=== PATIENT | male | born 1985 | race Caucasian/White ===

== ENCOUNTER 2024-01-12 11:32 | Emergency (ER) | payer MEDICAID, SELFPAY ==
[2024-01-12 11:41] VITALS: BP 134/79; PULSE 85; RESP 16; TEMP 37.2; O2SAT 99
== END 2024-01-12 12:26 ==
DX: Z53.21 Procedure and treatment not carried out due to patient leaving prior to being seen by health care provider (principal)

== ENCOUNTER 2024-01-13 09:45 | Emergency (ER) | payer MEDICAID, SELFPAY ==
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
[2024-01-13 09:50] VITALS: BP 173/113; PULSE 88; RESP 20; TEMP 36.8; O2SAT 100
[2024-01-13 09:57] VITALS: BP 182/97; PULSE 81; RESP 17; O2SAT 100
--- NOTE | 2024-01-13 10:15 | DI.CT_ITS ---
Exam(s) CT HEAD WO EXAM: CT HEAD WO CLINICAL HISTORY: fall/headache/hx of tbi. TECHNIQUE: Imaging Protocol: Axial computed tomography images with coronal and sagittal reformatted images were created and reviewed COMPARISON: No exams were available for comparison FINDINGS: Ventricles and Extra axial spaces: Normal in size and morphology for the patient's age. Hemorrhage: None. Cerebral parenchyma: No evidence of acute infarct or mass. Midline shift: None. Brainstem/Cerebellum: Normal. Calvarium: Normal. Visualized Paranasal sinuses:Clear. Mastoids: Clear. Soft Tissues: Unremarkable. ORBITS: Unremarkable. PITUITARY: Not enlarged. IMPRESSION: No acute intracranial process. RADIATION DOSE DELIVERED: Total DLP DATA REPOSITORY: All CT scans at this facility are submitted to the National Radiology Data Registry (NRDR) Dose Index Registry (DIR) with the [employer] ([employer]). RADIATION OPTIMIZATION: All CT scans at this facility use at least one of these dose optimization te chniques: automated exposure control; mA and/or kV adjustment per patient size (includes targeted exa ms where dose is matched to clinical indication); or iterative reconstruction.
[2024-01-13 10:30] LABS: Abs Immature Grans 0.01 10^3/uL (0.0-0.06); Absolute Basophil Count 0.04 10^3/uL (0.0-0.2); Absolute Eosinophil Count 0.13 10^3/uL (0.0-0.7); Absolute Lymphocyte Count 0.49 10^3/uL (1.2-3.4); Absolute Monocyte Count 0.37 10^3/uL (0.1-0.8); Absolute Neutrophil Count 1.49 10^3/uL (1.2-6.7); Basophils % 1.6; Eosinophils % 5.1; HCT 32.6 % (40.0-50.0); HGB 10.5 g/dL (13.5-17.5); Immature Grans % 0.4; Lymphocytes % 19.4; MCH 26.4 pg (27.0-33.0); MCHC 32.2 % (32.0-36.0); MCV 82 fL (80-95); MPV 9.9 fL (8.0-11.0); Monocytes % 14.6; Neutrophils % 58.9; RBC 3.97 10^6/uL (4.36-5.78); RDW 19.3 % (11.8-14.1); RDW-SD 57.5 fL; WBC 2.53 10^3/uL (4.4-10.8)
--- NOTE | 2024-01-13 10:31 | DI.CT_ITS ---
Exam(s) CT CHEST/ABD/PEL W CT THORACIC LUMBAR SPINE REC EXAM: CT CHEST/ABD/PEL W CLINICAL HISTORY: fall. SOB, R flank pain. TECHNIQUE: Imaging Protocol: Axial computed tomography images with coronal and sagittal reformatted images were created and reviewed CONTRAST MATERIAL: Intravenous: Omnipaque 350 Contrast volume:100 ml Oral: no COMPARISON: No exams were available for comparison FINDINGS: CHEST: Mediastinum: Esophageal varices. Tracheobronchial tree: Patent where visualized. Pulmonary parenchyma: No consolidation or dominant measurable mass. Pleura: No effusion or pneumothorax. Lymph nodes: Within normal limits. Aorta: Thoracic portion non-dilated. Heart: Normal size. No pericardial effusion. Bones: Old mild compression fracture of the anterior superior endplate of T12. Subacute versus old f racture of the posterolateral left 11th rib. No lytic or blastic lesions.No acute compression fractu res. Soft tissues: Bilateral gynecomastia. ABDOMEN and PELVIS: Liver: Enlarged, cirrhotic appearing liver. No measurable mass. Gallbladder and biliary tract: No evidence of stones or wall thickening. No biliary dilatation. Pancreas: Normal density, no abnormal calcifications or inflammatory process. Spleen: Enlarged. Splenic vein is dilated. Varices are noted in the left upper quadrant. Kidneys: Normal size, contour and axis. No radiodense stones. No obstructive uropathy. No suspicious masses seen. Adrenal glands: No masses seen. Aorta: Abdominal portion non-dilated. Lymph nodes: Within normal limits. Soft tissues: Unremarkable. Bladder: Unremarkable. Bowel: No obstruction or bowel wall thickening. Peritoneal cavity: No ascites. No focal collection. No mesenteric inflammatory response. Bones: Unremarkable for age. No lumbar spine or pelvic fracture. Reproductive organs: Within normal limits. IMPRESSION: No acute abnormality in the chest, abdomen or pelvis.. Cirrhotic liver. Prominent esophageal and left upper quadrant varices. RADIATION DOSE DELIVERED: Total DLP DATA REPOSITORY: All CT scans at this facility are submitted to the National Radiology Data Registry (NRDR) Dose Index Registry (DIR) with the [employer] (A[employer]). RADIATION OPTIMIZATION: All CT scans at this facility use at least one of these dose optimization te chniques: automated exposure control; mA and/or kV adjustment per patient size (includes targeted exa ms where dose is matched to clinical indication); or iterative reconstruction.
[2024-01-13 10:40] LABS: Diff Comment Diff Reviewed; Platelet Count 96 10^3/uL (130-400); RBC Morphology Normal
[2024-01-13 10:58] LABS: ALT 27 U/L (16-63); AST 96 U/L (15-37); Albumin 2.8 g/dL (3.4-5.0); Alkaline Phosphatase 240 U/L (46-116); Anion Gap 6.7 mmol/L (3-11); BUN 12 mg/dL (7-18); Bilirubin, Total 1.6 mg/dL (0.2-1.0); CO2 27.3 mmol/L (21.0-32.0); CREATININE 0.6 mg/dL (0.70-1.30); Calcium 8.7 mg/dL (8.5-10.1); Chloride 102 mmol/L (98-107); Glucose 118 mg/dL (74-106); Lipase 46 U/L (16-77); Potassium 3.8 mmol/L (3.5-5.1); Sodium 136 mmol/L (136-145); Total Protein 8.9 g/dL (6.4-8.2)
[2024-01-13] MEDS: Normal Saline - Diluent 50 ML VIAL IJ (11:03)
[2024-01-13] MEDS: Omnipaque 350 MG/ML 500 ML BTL-Imaging package 100 ML IJ (11:04)
[2024-01-13 12:24] LABS: Bilirubin Negative (Negative); Blood Small (Negative); Clarity Clear (Clear); Glucose Negative (Negative); Ketones Negative (Negative); Leukocyte Esterase Negative (Negative); Nitrite Negative (Negative); Specific Gravity 1.015 (1.005-1.025); pH 8.5 (5-8)
[2024-01-13 12:32] LABS: Bacteria Negative HPF (Negative); C & S Indicated? No; Casts 0-2 Hyaline LPF (Negative); Crystals Negative HPF (Negative); Epithelial Cells Rare HPF (Negative); Mucus Negative (Negative); WBC Negative HPF (0-5)
[2024-01-13 13:03] VITALS: BP 106/70; PULSE 96; RESP 16; TEMP 36.8; O2SAT 94
== END 2024-01-13 13:12 | disposition home or self-care (01) ==
PROVIDERS: Emergency Provider Physician Assistant
DX: S09.90XA Unspecified injury of head, initial encounter (principal); M54.50 Low back pain, unspecified; G40.909 Epilepsy, unspecified, not intractable, without status epilepticus; K74.60 Unspecified cirrhosis of liver; W07.XXXA Fall from chair, initial encounter; Y93.E1 Activity, personal bathing and showering; Y92.012 Bathroom of single-family (private) house as the place of occurrence of the external cause
CPT/HCPCS: 36415; 74177; 80053; 83690; 99285; 70450; 71260; 81003; 81015; 85025; 99284

== ENCOUNTER 2024-02-05 10:43 | Emergency (ER) | payer MEDICAID, SELFPAY ==
[2024-02-05] VITALS (41 sets, daily range): BP systolic 100–173; BP diastolic 50–104; PULSE 54–97; RESP 9–17; TEMP 36.4; O2SAT 100
--- NOTE | 2024-02-05 10:48 | ED.GENADUL_ITS ---
Discharge Plan Disposition Patient Disposition: Home Condition: Stable Discharge Details Clinical Impression: Acute alcohol intoxication, Cirrhosis, alcoholic Primary Care Provider: Unknown,Unknown ED Provider: Zach Matthews Home Meds and New Rx's Prescriptions: New chlordiazepoxide HCl 25 mg capsule See Rx Instructions .ROUTE .COMPLEX PRN (Reason: ETOH withdrawal) Qty: 20 0RF Rx Instructions: Day 1: Take 50mg by mouth every 4 to 6 hours; Day 2: Take 50mg every 8 to 12 hours; Day 3: Take 50mg every 12 to 24 hours; Day 4: Take 25 mg every 12 to 24 hours Continued levetiracetam [Keppra] 1,000 mg tablet 1,000 mg PO BID thiamine HCl (vitamin B1) 100 mg tablet 100 mg PO DAILY nadolol [Corgard] 20 mg tablet 20 mg PO DAILY Discharge Instructions Instructions: Cirrhosis (ED), Alcohol Intoxication (ED) Additional Instructions: You were seen in the emergency department after being found down and unresponsive likely due to acute alcohol ingestion. Your blood alcohol was 0.52 if you are equating to a level on breathalyzer. This level was fatal in most people. Your CT scan due to your right lower quadrant tenderness shows that you have cirrhosis of the liver. Your liver enzymes are elevated indicating that you are in the end stages of alcoholism. Please continue with your plan for [facility] rehab. I have sent you a with a paper copy of a prescription for Librium a medicine to help with alcohol withdrawal side effects. Please take this to the pharmacy of your choice. Please return for any severe signs of withdrawal or seizure, I have sent you home with a short supply of Ativan tablets to help prevent any seizure symptoms. If you do drink on Librium they will repress your respiratory drive and you can have fatal complications from this. HPI General Date/Time Provider Initiated Documentation: 02/05/24 10:47 . HPI Narrative: 38 year-old male presents to ED today by EMS with a chief complaint of found down unresponsive near an off-ramp from , history of ETOH abuse and seizure history, lives with a pharmacology teacher with onset this morning. Patient is s ignificantly intoxicated on arrival, stating he has taken his Keppra this morning- I suspect he may be referring to yesterday. Quality described as no pain anywhere, states had one drink, no radiation to fever, active seizure, tremors, chest pain, cough, vomiting, abdominal pain. Severity is described as unable to quantify. Palliating factors include nothing specific. Provoking factors include nothing specific. Events leading up to the incident/Associated Symptoms: Patient states he has had severe ETOH withdrawal seizures in the past, does want to get sober, and will talk to wellness health coach. Patient not anticoagulated. Related Data Home Medications Medication Instructions Recorded Confirmed levetiracetam 1,000 mg tablet 1,000 mg PO BID 01/13/24 02/05/24 (Keppra) nadolol 20 mg tablet (Corgard) 20 mg PO DAILY 01/13/24 02/05/24 thiamine HCl (vitamin B1) 100 mg 100 mg PO DAILY 01/13/24 02/05/24 tablet chlordiazepoxide HCl 25 mg capsule See Rx Instructions .Route 02/05/24 .COMPLEX PRN ETOH withdrawal #20 caps Previous Rx's Medication Instructions Recorded chlordiazepoxide HCl 25 mg capsule See Rx Instructions .Route 02/05/24 .COMPLEX PRN ETOH withdrawal #20 caps Allergies Allergy/AdvReac Type Severity Reaction Status Date / Time No Known Allergies Allergy Unverified 02/05/24 10:47 General Stated Complaint: GenMedical ARETHA: 3 Review of Systems All systems reviewed & are unremarkable except as noted in HPI and below Exam Narrative Exam Narrative: GENERAL APPEARANCE: Well-nourished, non-toxic, awake and intoxicated, atraumatic, no acute distress. SKIN: Warm, pink, dry, intact, without rashes/lesions/ulcerations. HEAD: Normocephalic, atraumatic, normal hair distribution for gender/age. EYES: Pupils PERRLA, EOMs intact with horizontal bilateral nystagmus, normal conjunctiva, no exudates on lids/lashes. ENT: Nares patent, no circumoral cyanosis, no facial swelling NECK: Supple, trachea midline, painless cervical ROM. LUNGS/CHEST: Lungs CTA bilaterally- no rhonchi/rales/wheezes diffusely, non-labored respirations, normal A/P diameter, symmetrical expansion, no chest wall deformity HEART (CV/PV): Regular rate and rhythm without murmur, no peripheral edema, no JVD. ABDOMEN: Soft, non-distended, no guarding, RLQ tenderness, no RUQ tenderness or Martinez's sign, no Rovsing's. MSK: Normal ROM, no swelling/deformity to bilateral UEs or LEs, moving all extremities without weakness, no cyanosis, spine midline without tenderness, normal curvature. NEURO: Mental Status AAOx4 - alert to person, place, time, events No facial droop, no forehead involvement. Motor: No focal weakness - strength 5/5 in bilateral UEs and LEs, proximal and distal, symmetric. Sensory: sensation intact to light touch globally. Gait NT. PSYCH: euthymic, cooperative, pleasant, appropriate speech- not slurred Course Vital Signs Vital signs: Vital Signs Temperature 36.4 C L 02/05/24 10:43 Pulse 79 02/05/24 10:43 Respiratory Rate 15 02/05/24 10:43 Blood Pressure 173/95 H 02/05/24 10:43 Pulse Oximetry 100 02/05/24 10:43 Temperature 36.4 C L 02/05/24 10:43 Temperature Source Skin 02/05/24 10:43 Pulse 79 02/05/24 10:43 Respiratory Rate 15 02/05/24 10:43 Blood Pressure 173/95 H 02/05/24 10:43 Blood Pressure Position Sitting 02/05/24 10:43 Pulse Oximetry 100 02/05/24 10:43 Oxygen Delivery Method Room Air 02/05/24 10:43 Oxygen Flow Rate 0 02/05/24 10:43 Pain Level 0 02/05/24 10:43 Medical Decision Making This dictation utilizes [id number] dictation software and may contain unedited grammatical errors. 38 y/o M presents to ED today with a chief complaint of found with altered LOC near a highway off-ramp, ETOH in belongings, history of seizure disorder- very intoxicated but not reporting any pain anywhere, easily rousable, not slurring his words, calm and cooperative. Patient states he has had severe ETOH withdrawal seizures and wants to get off alcohol. Patient denies any head pain, neck pain, nausea, abdominal pain, vomiting, tremors. Patients' medical history: Seizure disorder, alcohol dependence, states otherwise relatively healthy. Family and social history: Lives at home with his foster father, severe alcohol use disorder, denies other drug use. Pertinent exam findings / vital signs include benign cardiopulmonary exam, mild right lower quadrant tenderness without peritoneal signs, nontoxic vitals, no tremulous movements, intoxicated. Differential / pathologies of concern include acute alcohol ingestion, fall, head trauma, seizure, impending severe withdrawal. Diagnostic studies of: -CBC, BMP, Liver Panel, Lactate, Lipase, CK, CRP/ESR, VBG, Trop I, BNP, TSH, UA, UDS, ETOH Level. -CBC no leukocytosis, leukopenia + -BMP no BRETT -LFTs elevated, mild elev direct bilirubin -Trop I negative, delta negative -BNP negative -Lipase mildly elevated -CK wnl, unlikely seizure -Lactate negative, unlikely seizure -VBG benign -UA benign -UDS negative -ETOH level 515 -CT head wo shows no ICH, no acute pathology -CT ABD/Pelvis w Contrast shows cirrhosis, distended gallbladder without cholecystitis Interventions of: -Loaded with 1gm Keppra IV to replace 24 hrs of missed possible doses orally -CIWA q2HR -Will order ativan as needed, load with IV phenobarbital if experiencing severe withdrawal for admission after discussion with Hospitalist Dr. Concepcion. ED Course/Assessment/Plan: 38-year-old male presents with severe alcohol intoxication, was brought in by EMS after being [place] [address] he had alcohol in his belongings. His blood alcohol level is 515, he was not slurring his words but does appear acutely intoxicated and is confused on timing of his last dosing of Keppra. He states that he has had severe alcoholic withdrawal seizures in the past. He states that he wants to stop drinking and is open to speaking with wellness health coach or detox facility. I did load him with IV Keppra as well as IV fluids on arrival, he had experienced no complications by the time of shift change. Have him on CIWA every 2 hours, he will likely need Ativan if he starts to begin to experience alcohol withdrawal, I spoke with the hospitalist team in regards to this patient, if he experiences severe withdrawal syndrome they would like him loaded with phenobarbital and then admitted to ICU which we have capacity for currently. If he makes it to a reasonable state of metabolism and is clinically sober he is open to discharge with some Ativan and Librium. He spoke with wellness health coach here and [facility]. CIWA currently 2 @ 1450, 1mg ativan IVP ordered q2hr PRN. Around 1525: Patient was able to ambulate and appears clinically sober, has arranged a ride. Was open to outpatient Librium, sent him with paper coper of Rx taper- sent home with 4 tab 1mg Ativan. Disposition of Acute Alcohol Intoxication, Cirrhosis Alcoholic. Patient verbalized understanding of the plan and return to ED criteria and engaged in shared decision making. Medical Records Medical records reviewed: Yes I reviewed the patient's medical records. Imaging Data Radiologic Study: Attestation: I personally reviewed and interpreted this imaging study as follows: Imaging: CT Scan Radiologist's impression: Exam: CT Head Without Contrast Exam date and time: 02/05/2024 12:05 PM Age: 38 years old Clinical indication: Other: Fall, loc, found down TECHNIQUE: Imaging protocol: Computed tomography of the head without contrast. Radiation optimization: All CT scans at this facility use at least one of these dose optimization techniques: automated exposure control; mA and/or kV adjustment per patient size (includes targeted exams where dose is matched to clinical indication); or iterative reconstruction. COMPARISON: CT HEAD WO 01/13/2024 11:13 AM FINDINGS: Brain: No midline shift. Ventricles, cisterns, and sulci are normal. No mass, acute infarct, hemorrhage, or extraaxial fluid collection. Cerebral ventricles: No ventriculomegaly. Paranasal sinuses: Visualized sinuses are unremarkable. No fluid levels. Mastoid air cells: Visualized mastoid air cells are well aerated. Bones/joints: Unremarkable. No acute fracture. Soft tissues: Unremarkable. IMPRESSION: No acute intracranial abnormality. Dictated and Authenticated by: Stanley Venegas MD. Ordering:ANITHA Serrano MD Radiologic Study #2: Attestation: I personally reviewed and interpreted this imaging study as follows: Imaging: CT Scan Radiologist's impression: Exam: CT Abdomen And Pelvis With Contrast Exam date and time: 02/05/2024 12:10 PM Age: 38 years old Clinical indication: Other: Rlq abd tenderness TECHNIQUE: Imaging protocol: Computed tomography of the abdomen and pelvis with contrast. Radiation optimization: All CT scans at this facility use at least one of these dose optimization techniques: automated exposure control; mA and/or kV adjustment per patient size (includes targeted exams where dose is matched to clinical indication); or iterative reconstruction. Contrast material: OMNI 350; Contrast volume: 100 ml; Contrast route: INTRAVENOUS (IV); COMPARISON: CT CHEST/ABD/PEL W 01/13/2024 11:16 AM FINDINGS: Liver: The liver has a nodular contour. Gallbladder and bile ducts: The gallbladder is mildly distended. No calcified gallstones. Pancreas: Normal. No ductal dilation. Spleen: Normal. No splenomegaly. Adrenal glands: Normal. No mass. Kidneys and ureters: Normal. No hydronephrosis. Stomach and bowel: There is gastric antral submucosal edema. No bowel obstruction. Appendix: No evidence of appendicitis. Intraperitoneal space: Unremarkable. No free air. No significant fluid collection. Vasculature: There are esophageal varices. There are splenorenal shunts. Lymph nodes: Unremarkable. No enlarged lymph nodes. Urinary bladder: Unremarkable as visualized. Reproductive: Unremarkable as visualized. Bones/joints: Unremarkable. No acute fracture. Soft tissues: Unremarkable. IMPRESSION: 1. Cirrhosis with upper abdominal varices. 2. Gastric antral submucosal edema, likely gastritis. 3. Distended gallbladder. Dictated and Authenticated by: Beverly Espinoza MD. Ordering:ANITHA Serrano MD Lab Data Lab results reviewed: Yes I reviewed the patient's lab results. Labs: Laboratory Tests Range/Units 02/05/24 02/05/24 02/05/24 11:00 11:00 12:01 WBC (4.4-10.8) 10^3/uL 2.62 L RBC (4.36-5.78) 10^6/uL 4.26 L Hgb (13.5-17.5) g/dL 11.3 L Hct (40.0-50.0) % 35.7 L MCV (80-95) fL 84 MCH (27.0-33.0) pg 26.5 L MCHC (32.0-36.0) % 31.7 L RDW (11.8-14.1) % 17.6 H Plt Count (130-400) 10^3/uL 73 L MPV (8.0-11.0) fL 10.0 Immature Gran % 0.4 Neutrophils % 40.0 Lymphocytes % 39.7 Monocytes % 8.8 Eosinophils % 9.2 Basophils % 1.9 Nucleated RBC % (0.0-0.3) % 0.0 Absolute Neutrophils (1.2-6.7) 10^3/uL 1.05 L Absolute Lymphocytes (1.2-3.4) 10^3/uL 1.04 L Absolute Monocytes (0.1-0.8) 10^3/uL 0.23 Absolute Eosinophils (0.0-0.7) 10^3/uL 0.24 Absolute Basophils (0.0-0.2) 10^3/uL 0.05 RBC Morphology Normal ESR (0-15) mm/hr 49 H VBG pH (7.31-7.41) 7.37 VBG pCO2 (41-51) mmHg 52 H VBG pO2 mmHg 28 VBG HCO3 (23-28) mmol/L 30 H VBG Total CO2 (24-29) mmol/L 28 VBG O2 Saturation % 34 VBG Base Excess (-2-3) mmol/L 5 H VBG Lactate (0.6-1.4) mmol/L 1.1 Sodium (136-145) mmol/L 146 H Potassium (3.5-5.1) mmol/L 3.8 Chloride (98-107) mmol/L 107 Carbon Dioxide (21.0-32.0) mmol/L 29.6 Anion Gap (3-11) mmol/L 9.4 BUN (7-18) mg/dL 10 Creatinine (0.70-1.30) mg/dL 0.6 L Est GFR (CKD-EPI 2020) (mL/min/1.73m2) 128.30 Glucose (74-106) mg/dL 104 Calcium (8.5-10.1) mg/dL 8.2 L Magnesium (1.8-2.4) mg/dL 1.8 Total Bilirubin (0.2-1.0) mg/dL 1.2 H Conjugated Bilirubin (0.0-0.2) mg/dL 0.7 H AST (15-37) U/L 94 H ALT (16-63) U/L 26 Alkaline Phosphatase (46-116) U/L 231 H Creatine Kinase (39-308) U/L 190 Troponin I (< or =60) ng/L < 50 C-Reactive Protein (<or=0.5) mg/dL < 0.50 NT-Pro-B Natriuret Pep (<300) pg/mL 15 Total Protein (6.4-8.2) g/dL 9.7 H Albumin (3.4-5.0) g/dL 3.3 L Lipase (16-77) U/L 91 H TSH (0.36-3.74) uIU/mL 1.32 Urine Color (Yellow) Yellow Urine Clarity (Clear) Clear Urine pH (5-8) 7.0 Ur Specific [place] (1.005-1.025) 1.010 Urine Protein (Neg-Trace) mg/dL 100 H Urine Ketones (Negative) mg/dL Negative Urine Blood (Negative) Small H Urine Nitrite (Negative) Negative Urine Bilirubin (Negative) Negative Urine Urobilinogen (Up to 0.2) mg/dL 1.0 H Ur Leukocyte Esterase (Negative) Negative Urine RBC (0-2) HPF 0-2 Urine WBC (0-5) HPF Negative Ur Epithelial Cells (Negative) HPF Negative Urine Crystals (Negative) HPF Negative Urine Bacteria (Negative) HPF Negative Urine Casts (Negative) LPF Negative Urine Mucus (Negative) Negative Urine Other (Negative) Negative Ur Culture Indicated? No Urine Glucose (Negative) mg/dL Negative Urine Opiates Screen (Negative) Negative Urine Methadone Screen (Negative) Negative Ur Barbiturates Screen (Negative) Negative Ur Tricyclics Screen (Negative) Negative Ur Amphetamines Screen (Negative) Negative U Benzodiazepines Scrn (Negative) Negative Urine Cocaine Screen (Negative) Negative Ur THC Screen (Negative) Negative Ethyl Alcohol (<10) mg/dL 515.5 H Cancelled Range/Units 02/05/24 14:11 WBC (4.4-10.8) 10^3/uL RBC (4.36-5.78) 10^6/uL Hgb (13.5-17.5) g/dL Hct (40.0-50.0) % MCV (80-95) fL MCH (27.0-33.0) pg MCHC (32.0-36.0) % RDW (11.8-14.1) % Plt Count (130-400) 10^3/uL MPV (8.0-11.0) fL Immature Gran % Neutrophils % Lymphocytes % Monocytes % Eosinophils % Basophils % Nucleated RBC % (0.0-0.3) % Absolute Neutrophils (1.2-6.7) 10^3/uL Absolute Lymphocytes (1.2-3.4) 10^3/uL Absolute Monocytes (0.1-0.8) 10^3/uL Absolute Eosinophils (0.0-0.7) 10^3/uL Absolute Basophils (0.0-0.2) 10^3/uL RBC Morphology ESR (0-15) mm/hr VBG pH (7.31-7.41) VBG pCO2 (41-51) mmHg VBG pO2 mmHg VBG HCO3 (23-28) mmol/L VBG Total CO2 (24-29) mmol/L VBG O2 Saturation % VBG Base Excess (-2-3) mmol/L VBG Lactate (0.6-1.4) mmol/L Sodium (136-145) mmol/L Potassium (3.5-5.1) mmol/L Chloride (98-107) mmol/L Carbon Dioxide (21.0-32.0) mmol/L Anion Gap (3-11) mmol/L BUN (7-18) mg/dL Creatinine (0.70-1.30) mg/dL Est GFR (CKD-EPI 2020) (mL/min/1.73m2) Glucose (74-106) mg/dL Calcium (8.5-10.1) mg/dL Magnesium (1.8-2.4) mg/dL Total Bilirubin (0.2-1.0) mg/dL Conjugated Bilirubin (0.0-0.2) mg/dL AST (15-37) U/L ALT (16-63) U/L Alkaline Phosphatase (46-116) U/L Creatine Kinase (39-308) U/L Troponin I (< or =60) ng/L < 50 C-Reactive Protein (<or=0.5) mg/dL NT-Pro-B Natriuret Pep (<300) pg/mL Total Protein (6.4-8.2) g/dL Albumin (3.4-5.0) g/dL Lipase (16-77) U/L TSH (0.36-3.74) uIU/mL Urine Color (Yellow) Urine Clarity (Clear) Urine pH (5-8) Ur Specific [place] (1.005-1.025) Urine Protein (Neg-Trace) mg/dL Urine Ketones (Negative) mg/dL Urine Blood (Negative) Urine Nitrite (Negative) Urine Bilirubin (Negative) Urine Urobilinogen (Up to 0.2) mg/dL Ur Leukocyte Esterase (Negative) Urine RBC (0-2) HPF Urine WBC (0-5) HPF Ur Epithelial Cells (Negative) HPF Urine Crystals (Negative) HPF Urine Bacteria (Negative) HPF Urine Casts (Negative) LPF Urine Mucus (Negative) Urine Other (Negative) Ur Culture Indicated? Urine Glucose (Negative) mg/dL Urine Opiates Screen (Negative) Urine Methadone Screen (Negative) Ur Barbiturates Screen (Negative) Ur Tricyclics Screen (Negative) Ur Amphetamines Screen (Negative) U Benzodiazepines Scrn (Negative) Urine Cocaine Screen (Negative) Ur THC Screen (Negative) Ethyl Alcohol (<10) mg/dL Quality:SDOH Health Related Social Needs: No Data to Display PFSH All Active Problems (Updated 02/05/24 @ 14:42 by THEODORA Aguilar) Cirrhosis, alcoholic (Acute) Acute alcohol intoxication (Acute) Head injury (Acute) Back pain (Acute) Social History Smoking/Tobacco Use Status: Never Smoking risk assessment performed?: Yes Alcohol Intake: current Alcohol Intake frequency: a few times a month Drug use: Never Substance use type: does not use Do you feel safe at home: Yes Do you feel safe in your relationship?: Yes
--- NOTE | 2024-02-05 11:00 | DI.CT_ITS ---
Exam(s) CT HEAD WO EXAM: CT HEAD WO CLINICAL HISTORY: fall, LOC, found down. TECHNIQUE: Imaging Protocol: Axial computed tomography images with coronal and sagittal reformatted images were created and reviewed COMPARISON: CT CT HEAD WO from 01/13/2024 FINDINGS: Ventricles and Extra axial spaces: Normal in size and morphology for the patient's age. Hemorrhage: None. Cerebral parenchyma: No evidence of acute infarct or mass. Midline shift: None. Brainstem/Cerebellum: Normal. Calvarium: Normal. Visualized Paranasal sinuses:Clear. Mastoids: Clear. Soft Tissues: Unremarkable. ORBITS: Unremarkable. PITUITARY: Not enlarged. IMPRESSION: No acute intracranial process. RADIATION DOSE DELIVERED: Total DLP DATA REPOSITORY: All CT scans at this facility are submitted to the National Radiology Data Registry (NRDR) Dose Index Registry (DIR) with the [employer] ([employer]). RADIATION OPTIMIZATION: All CT scans at this facility use at least one of these dose optimization te chniques: automated exposure control; mA and/or kV adjustment per patient size (includes targeted exa ms where dose is matched to clinical indication); or iterative reconstruction.
--- NOTE | 2024-02-05 11:00 | DI.CT_ITS ---
Exam(s) CT ABDOMEN PELVIS W EXAM: CT ABDOMEN PELVIS W CLINICAL HISTORY: RLQ abd tenderness. TECHNIQUE: Imaging Protocol: Axial computed tomography images with coronal and sagittal reformatted images were created and reviewed CONTRAST MATERIAL: Intravenous: Omnipaque 350 Contrast volume:100 ml Oral: no COMPARISON: CT CT CHEST/ABD/PEL W from 01/13/[address] THORACIC LUMBAR SPINE REC from 01/13/2024 FINDINGS: ABDOMEN and PELVIS: Lung Bases: No acute findings. Liver: Enlarged liver with cirrhotic appearance, unchanged. Normal density. No measurable mass. Gallbladder and biliary tract: No radiodense calculus or biliary dilation. Pancreas: Normal density. No abnormal calcifications or inflammatory process. No evidence of mass. Spleen: Enlarged. Kidneys: Normal size, contour and axis. No radiodense stones. No obstructive uropathy. No suspicious masses seen. Adrenal glands: No masses seen. Vasculature: Abdominal aorta non-dilated. Prominent esophageal and left upper quadrant varices. Soft tissues: Unremarkable. Bladder:Nearly empty. No gross wall thickening. No calculi.No focal mass. Bowel: Stomach not well evaluated due to lack of oral contrast and lack of distention. No obstructio n. No bowel wall thickening. Appendix normal. Normal quantity of stool. Peritoneal cavity: No ascites. No focal collection or mesenteric inflammatory response. Bones: Stable mild T12 compression fracture. Reproductive organs: Within normal limits. Lymph nodes: Unremarkable. IMPRESSION:: No acute abnormality. Cirrhotic liver. Prominent paraesophageal and left upper quadra nt varices. RADIATION DOSE DELIVERED: Total DLP DATA REPOSITORY: All CT scans at this facility are submitted to the National Radiology Data Registry (NRDR) Dose Index Registry (DIR) with the [employer] ([employer]). RADIATION OPTIMIZATION: All CT scans at this facility use at least one of these dose optimization te chniques: automated exposure control; mA and/or kV adjustment per patient size (includes targeted exa ms where dose is matched to clinical indication); or iterative reconstruction.
[2024-02-05 11:09] LABS: BE (Venous) 5 mmol/L (-2-3); HCO3 (Venous) 30 mmol/L (23-28); O2 Sat (Venous) 34 %; TCO2 (Venous) 28 mmol/L (24-29); pCO2 (Venous) 52 mmHg (41-51); pH (Venous) 7.37 (7.31-7.41); pO2 (Venous) 28 mmHg
[2024-02-05 11:10] LABS: Lactate 1.1 mmol/L (0.6-1.4)
[2024-02-05 11:13] LABS: Abs Immature Grans 0.01 10^3/uL (0.0-0.06); Absolute Basophil Count 0.05 10^3/uL (0.0-0.2); Absolute Eosinophil Count 0.24 10^3/uL (0.0-0.7); Absolute Lymphocyte Count 1.04 10^3/uL (1.2-3.4); Absolute Monocyte Count 0.23 10^3/uL (0.1-0.8); Absolute Neutrophil Count 1.05 10^3/uL (1.2-6.7); Basophils % 1.9; Eosinophils % 9.2; HCT 35.7 % (40.0-50.0); HGB 11.3 g/dL (13.5-17.5); Immature Grans % 0.4; Lymphocytes % 39.7; MCH 26.5 pg (27.0-33.0); MCHC 31.7 % (32.0-36.0); MCV 84 fL (80-95); Monocytes % 8.8; RBC 4.26 10^6/uL (4.36-5.78); RDW 17.6 % (11.8-14.1); WBC 2.62 10^3/uL (4.4-10.8)
[2024-02-05 11:14] LABS: ESR 49 mm/hr (0-15)
[2024-02-05] MEDS: levETIRAcetam 1,000 MG in Normal Saline 100 ML 400 MG IVPB (11:16)
[2024-02-05] MEDS: Normal Saline 1,000 ML 1000 ML IV (11:17)
[2024-02-05 11:25] LABS: Diff Comment Diff Reviewed; Platelet Count 73 10^3/uL (130-400); RBC Morphology Normal
[2024-02-05 11:38] LABS: ALT 26 U/L (16-63); AST 94 U/L (15-37); Albumin 3.3 g/dL (3.4-5.0); Alkaline Phosphatase 231 U/L (46-116); Anion Gap 9.4 mmol/L (3-11); BUN 10 mg/dL (7-18); Bilirubin, Direct 0.7 mg/dL (0.0-0.2); Bilirubin, Total 1.2 mg/dL (0.2-1.0); CO2 29.6 mmol/L (21.0-32.0); CREATININE 0.6 mg/dL (0.70-1.30); Calcium 8.2 mg/dL (8.5-10.1); Chloride 107 mmol/L (98-107); Creatine Kinase 190 U/L (39-308); Glucose 104 mg/dL (74-106); Lipase 91 U/L (16-77); Magnesium 1.8 mg/dL (1.8-2.4); NT-proBNP 15 pg/mL (<300); Potassium 3.8 mmol/L (3.5-5.1); Sodium 146 mmol/L (136-145); TSH (W/Ref FT4) 1.32 uIU/mL (0.36-3.74); Total Protein 9.7 g/dL (6.4-8.2); Troponin I < 50 ng/L (< or =60)
[2024-02-05 11:39] LABS: C-Reactive Protein < 0.50 mg/dL (<or=0.5); ETHANOL BLOOD 515.5 mg/dL (<10)
[2024-02-05] MEDS: Normal Saline - Diluent 50 ML VIAL IJ (12:14)
[2024-02-05] MEDS: Omnipaque 350 MG/ML 100 ML BTL IJ (12:15)
[2024-02-05 12:17] LABS: Bilirubin Negative (Negative); Blood Small (Negative); Clarity Clear (Clear); Glucose Negative (Negative); Ketones Negative (Negative); Leukocyte Esterase Negative (Negative); Nitrite Negative (Negative)
[2024-02-05 12:30] LABS: *AMPHETAMINES SCREEN URINE Negative (Negative); *BARBITURATES SCREEN URINE Negative (Negative); *BENZODIAZEPINES SCREEN URINE Negative (Negative); Cannabinoids THC Negative (Negative); Cocaine Screen,Urine Negative (Negative); METHADONE URINE SCREEN Negative (Negative); OPIATES URINE SCREEN Negative (Negative)
[2024-02-05 12:37] LABS: Tricyclic Antidepressants Negative (Negative)
[2024-02-05 12:48] LABS: Bacteria Negative HPF (Negative); C & S Indicated? No; Casts Negative LPF (Negative); Crystals Negative HPF (Negative); Epithelial Cells Negative HPF (Negative); Mucus Negative (Negative); Other Cells Negative (Negative); RBC 0-2 HPF (0-2); WBC Negative HPF (0-5)
--- NOTE | 2024-02-05 12:56 | DI.VRAD_ITS ---
PROCEDURE INFORMATION: Exam: CT Head Without Contrast Exam date and time: 02/05/2024 12:05 PM Age: 38 years old Clinical indication: Other: Fall, loc, found down TECHNIQUE: Imaging protocol: Computed tomography of the head without contrast. Radiation optimization: All CT scans at this facility use at least one of these dose optimization techniques: automated exposure control; mA and/or kV adjustment per patient size (includes targeted exams where dose is matched to clinical indication); or iterative reconstruction. COMPARISON: CT HEAD WO 01/13/2024 11:13 AM FINDINGS: Brain: No midline shift. Ventricles, cisterns, and sulci are normal. No mass, acute infarct, hemorrhage, or extraaxial fluid collection. Cerebral ventricles: No ventriculomegaly. Paranasal sinuses: Visualized sinuses are unremarkable. No fluid levels. Mastoid air cells: Visualized mastoid air cells are well aerated. Bones/joints: Unremarkable. No acute fracture. Soft tissues: Unremarkable. IMPRESSION: No acute intracranial abnormality. Dictated and Authenticated by: Stanley Venegas MD. Ordering:ANITHA Serrano MD
--- NOTE | 2024-02-05 13:00 | DI.VRAD_ITS ---
PROCEDURE INFORMATION: Exam: CT Abdomen And Pelvis With Contrast Exam date and time: 02/05/2024 12:10 PM Age: 38 years old Clinical indication: Other: Rlq abd tenderness TECHNIQUE: Imaging protocol: Computed tomography of the abdomen and pelvis with contrast. Radiation optimization: All CT scans at this facility use at least one of these dose optimization techniques: automated exposure control; mA and/or kV adjustment per patient size (includes targeted exams where dose is matched to clinical indication); or iterative reconstruction. Contrast material: OMNI 350; Contrast volume: 100 ml; Contrast route: INTRAVENOUS (IV); COMPARISON: CT CHEST/ABD/PEL W 01/13/2024 11:16 AM FINDINGS: Liver: The liver has a nodular contour. Gallbladder and bile ducts: The gallbladder is mildly distended. No calcified gallstones. Pancreas: Normal. No ductal dilation. Spleen: Normal. No splenomegaly. Adrenal glands: Normal. No mass. Kidneys and ureters: Normal. No hydronephrosis. Stomach and bowel: There is gastric antral submucosal edema. No bowel obstruction. Appendix: No evidence of appendicitis. Intraperitoneal space: Unremarkable. No free air. No significant fluid collection. Vasculature: There are esophageal varices. There are splenorenal shunts. Lymph nodes: Unremarkable. No enlarged lymph nodes. Urinary bladder: Unremarkable as visualized. Reproductive: Unremarkable as visualized. Bones/joints: Unremarkable. No acute fracture. Soft tissues: Unremarkable. IMPRESSION: 1. Cirrhosis with upper abdominal varices. 2. Gastric antral submucosal edema, likely gastritis. 3. Distended gallbladder. Dictated and Authenticated by: Beverly Espinoza MD. Ordering:ANITHA Serrano MD
[2024-02-05 14:40] LABS: Troponin I < 50 ng/L (< or =60)
[2024-02-05] MEDS: LORazepam 1 MG TAB PO (15:38)
== END 2024-02-05 15:41 | disposition home or self-care (01) ==
PROVIDERS: Emergency Provider Physician Assistant
DX: F10.120 Alcohol abuse with intoxication, uncomplicated (principal); K70.30 Alcoholic cirrhosis of liver without ascites; G40.909 Epilepsy, unspecified, not intractable, without status epilepticus; Z79.899 Other long term (current) drug therapy; Y90.8 Blood alcohol level of 240 mg/100 ml or more
CPT/HCPCS: 36415; 80048; 80076; 80307; 82550; 82805; 83690; 85652; 96361; 96374; 99285; 70450; 74177; 80320; 81003; 81015; 83605; 83735; 83880; 84443; 84484; 85025; 86140; 99284; J1953; J3490

== ENCOUNTER 2024-02-26 10:08 | Emergency (ER) | payer MEDICAID, SELFPAY ==
[2024-02-26 10:11] VITALS: BP 169/103; PULSE 86; RESP 18; TEMP 36.6; O2SAT 98
[2024-02-26 10:25] VITALS: BP 169/103; PULSE 20; RESP 18; TEMP 36.6; O2SAT 98
[2024-02-26 10:26] VITALS: RESP 18
--- NOTE | 2024-02-26 10:50 | ED.GENADUL_ITS ---
Discharge Plan Disposition Patient Disposition: Home Condition: Good Discharge Details Clinical Impression: Acute alcohol intoxication, Elevated blood pressure reading Primary Care Provider: Unknown,Unknown ED Provider: Brie Dallas Home Meds and New Rx's Prescriptions: Continued levetiracetam [Keppra] 1,000 mg tablet 1,000 mg PO BID thiamine HCl (vitamin B1) 100 mg tablet 100 mg PO DAILY nadolol [Corgard] 20 mg tablet 20 mg PO DAILY Discharge Instructions Instructions: Alcohol Intoxication (ED) Additional Instructions: Please call [facility] to discuss your emergency department visit today and elevated blood pressure reading today. I encourage you to follow-up with your assistant track and field coach and AA. Return to emergency care if you develop suicidal ideation, self-harm behaviors, thoughts of harming others, chest pain, episodes of passing out, or if you are very worried and need to be rechecked again immediately Referrals: Raúl Linda NP [NURSE PRACTITIONER] - HPI General Date/Time Provider Initiated Documentation: 02/26/24 10:50 . HPI Narrative: Julio is a 39-year-old male with history of alcohol use who presents to the emergency department today for evaluation after being found wandering in the streets intoxicated. He was released from [facility] 2 days ago, says he was there for couple of weeks. He is currently being treated with Keppra and naltrexone. This morning he felt sad, drank 2 heavy handed poured vodka drinks. He attempted to walk to his foster father's house, was wandering into the street. He was found by the biomedical equipment tech. Brought into the emergency department. He denies injuries, self-harm intention, HI/SI. Says he has recently been in good health, denies fever/chills, cough, chest pain, shortness of breath, nausea/vomiting, change in p.o. intake, change in bowel or bladder function. Denies significant past medical history. Denies drug use, occasional marijuana use. Related Data Home Medications Medication Instructions Recorded Confirmed levetiracetam 1,000 mg tablet 1,000 mg PO BID 01/13/24 02/26/24 (Keppra) nadolol 20 mg tablet (Corgard) 20 mg PO DAILY 01/13/24 02/26/24 thiamine HCl (vitamin B1) 100 mg 100 mg PO DAILY 01/13/24 02/26/24 tablet Allergies Allergy/AdvReac Type Severity Reaction Status Date / Time No Known Allergies Allergy Unverified 02/26/24 10:15 General Stated Complaint: GenMedical ARETHA: 3 Review of Systems Narrative: see HPI Exam Const General: cooperative, healthy appearing, comfortable and intoxicated appearing Eyes Pupils: PERRL EOM: EOM intact bilaterally Resp Effort & Inspection: normal respiratory effort and able to speak in complete sentences Auscultation: clear to auscultation bilaterally Cardio Rate: regular rate Rhythm: regular rhythm Neuro General: patient alert, patient awake and patient oriented x3 Cranial Nerves: PERRL, EOM intact bilaterally, facial strength normal and tongue midline Cognition: normal cognition Speech: speech normal Gait: normal gait Motor: muscle tone normal throughout Coordination: [id number] test normal, Romberg test normal and rapid alternating movement UE normal Course Vital Signs Vital signs: Vital Signs Temperature 36.6 C 02/26/24 10:11 Pulse 20 L 02/26/24 10:11 Respiratory Rate 18 02/26/24 10:11 Blood Pressure 169/103 H 02/26/24 10:11 Pulse Oximetry 98 02/26/24 10:11 Temperature 36.6 C 02/26/24 10:25 Temperature Source Skin 02/26/24 10:25 Pulse 20 L 02/26/24 10:25 Respiratory Rate 18 02/26/24 10:26 Respiratory Effort Normal, Non-Labored 02/26/24 10:26 Respiratory Depth Normal 02/26/24 10:26 Respiratory Pattern Normal 02/26/24 10:26 Blood Pressure 169/103 H 02/26/24 10:25 Blood Pressure Position Sitting 02/26/24 10:25 Pulse Oximetry 98 02/26/24 10:25 Oxygen Delivery Method Room Air 02/26/24 10:25 Oxygen Flow Rate 0 02/26/24 10:25 Pain Level 0 02/26/24 10:25 Medical Decision Making Julio is a 39-year-old male with history of alcohol use who presents to the emergency department today for evaluation after being found wandering in the streets intoxicated. He was released from [facility] 2 days ago, says he was there for couple of weeks. He is currently being treated with Keppra and naltrexone. This morning he felt sad, drank 2 heavy handed poured vodka drinks. He attempted to walk to his foster father's house, was wandering into the street. He was found by the biomedical equipment tech. Brought into the emergency department. He denies injuries, self-harm intention, HI/SI. Says he has recently been in good health, denies fever/chills, cough, chest pain, shortness of breath, nausea/vomiting, change in p.o. intake, change in bowel or bladder function. Denies significant past medical history. Denies drug use, occasional marijuana use. Physical exam very reassuring, the patient does appear intoxicated. PERRL, EOMs intact. Clear voice, moist mucous membranes. Painless range of motion to neck. Head is atraumatic, no scalp bogginess/tenderness. No hemotympanums or Armstrong sign/raccoon eyes. Easy work of breathing, lung sounds clear bilaterally. Normal heart sounds. Normal finger finger, finger-nose, gait, Romberg. Does have a wobbling with tandem gait. History and presentation consistent with uncomplicated alcohol intoxication no red flags concerning for injury or contributing medical factors requiring diagnostic imaging or blood work. Will discharge patient to a responsible sober adult. Reviewed discharge instructions with patient, including importance of follow-up with [employer] assistant track and field coach and red flags indicate need for return to emergency care including self-harm/SI/HI. He is agreeable with plan of care. BP was elevated today, pt is asymptomatic. Recommend f/u with PCP for rpt VS and discussion of BP mgmt. Quality:SDOH Health Related Social Needs: No Data to Display PFSH All Active Problems (Updated 02/26/24 @ 11:17 by Brie Hutchison) Elevated blood pressure reading (Acute) Cirrhosis, alcoholic (Acute) Acute alcohol intoxication (Acute) Social History Smoking/Tobacco Use Status: Never Smoking risk assessment performed?: Yes Alcohol Intake: current Alcohol Intake frequency: a few times a month Drug use: Never Substance use type: does not use Do you feel safe at home: Yes Do you feel safe in your relationship?: Yes PAWSS Have you Been Recently Intoxicated or Drunk Within the Last 30 days?: Yes Have you Ever Experienced Previous Episodes of Alcohol Withdrawal?: Yes Have you ever Experienced Withdrawal Seizures?: Yes Have you ever Experienced Delirium Tremens(DT)s?: Unable to Obtain Have you ever undergone Alcohol Rehabilitation Treatment (i.e, inpt ot outpatient treatment programs)?: Yes Have you ever Experienced Blackouts?: Yes Have you ever Combined Alcohol with other Downers within the last 90 days?: Unable to Obtain Have you ever Combined Alcohol with any other Substance of Abuse during the last 90 days?: Unable to Obtain Positive Blood Alcohol level on Presentation? [PCS.BAL]: Yes Evidence of Increased Autonomic Activity (i.e. HR>120, tremor, sweating, agitation, nausea)?: No Result: 6
[2024-02-26 10:57] VITALS: BP 148/112; PULSE 102; O2SAT 97
[2024-02-26 11:14] VITALS: BP 148/112; PULSE 102; RESP 18; O2SAT 97
--- NOTE | 2024-02-26 11:18 | NUR.NOTE ---
Referral faxed to Raúl Bustillo NP hydro station operator for telephone call. Elevated BP, establish care, within 1 week. Nursing Note:
== END 2024-02-26 11:31 | disposition home or self-care (01) ==
PROVIDERS: Emergency Provider Nurse Practitioner Family
DX: F10.120 Alcohol abuse with intoxication, uncomplicated (principal); R03.0 Elevated blood-pressure reading, without diagnosis of hypertension
CPT/HCPCS: 99283

== ENCOUNTER 2024-08-17 15:27 | Inpatient (IN) | payer MEDICAID, SELFPAY ==
[2024-08-17] VITALS (142 sets, daily range): BP systolic 106–166; BP diastolic 55–96; PULSE 70–144; RESP 8–28; TEMP 35.9; O2SAT 92–99
--- NOTE | 2024-08-17 15:15 | RT.EKG_ITS ---
APPROVED REPORT Exam: Resting ECG Reason for Exam: ETOH Patient Location: E HR:107 bpm ECG Measurements Heart Rate 107 AXIS ID 162 P 70 QRSd 90 QRS 57 QT 325 T 56 QTc 433 Conclusion Sinus tachycardia, rate 107 No interval abnormalities No STEMI
--- NOTE | 2024-08-17 15:46 | W.ED.GENAD ---
Discharge Plan Discharge Details Chief Complaint: AMS/LOC Clinical Impression: Alcohol intoxication, Anemia, Leukopenia, Thrombocytopenia, Cellulitis of great toe of left foot Primary Care Provider: Unknown,Unknown ED Provider: Tremayne Wallace and New Rx's Prescriptions: No Action levetiracetam [Keppra] 1,000 mg tablet 1,000 mg PO BID thiamine HCl (vitamin B1) 100 mg tablet 100 mg PO DAILY nadolol [Corgard] 20 mg tablet 20 mg PO DAILY HPI <Jyoti Sneed MD - Last Filed: 08/17/24 22:50> General Mode of arrival: EMS. Date/Time Provider Initiated Documentation: 08/17/24 15:45. Limitations to Documentation: no limitations. Information obtained by: patient, EMS and old records reviewed. HPI Narrative: HPI: This is a 39-year-old male patient with a past medical history significant for alcohol use disorder, with a history of alcohol withdrawal seizures, who is presenting for evaluation of intoxication. Per EMS report, the patient was seen at his work around 230, when he showed up intoxicated. He reported that he had started drinking heavily last night at a [employer] constitution party, and they asked him to leave. He was found about an hour and a half later lying on the ground outside, states that he had been walking, thinks he may have stumbled and fallen, and was brought by EMS for evaluation. They noted him to have a tympanic temperature of 35 degrees, was mentating though appeared clinically intoxicated. Hemodynamically stable otherwise. The patient reports that he is an almost every day drinker, states that he drinks hard alcohol in large quantities. He has had periods of sobriety in the past where he used medications to stay sober, states that he is not currently feeling any suicidal ideation. He resides with his foster father, states that he did not hit his head, he is not experiencing any pain or discomfort. He reports that he has not used any other coingestants, does not use nicotine or tobacco products, occasionally uses marijuana. While examining the patient a red and swollen left great toe was identified, patient states that he has had this for some time, has not taken any antibiotics recently, believes that he sustained this due to extensive walking. Exam: Gen: Awake and alert, in no apparent distress HEENT: Non-icteric sclera, pupils are 4 mm and equal bilaterally, EOMs are full with extinguishable horizontal nystagmus Neck: Supple Lungs: No apparent respiratory distress, normal respiratory effort. Lung sounds clear and equal bilaterally CV: Appears well perfused, heart with tachycardic rate but regular rhythm, no murmurs auscultated, strong distal pulses Abdomen: Non-distended, soft, nontender MSK: Moves 4 extremities without apparent limitation in ROM Skin: Visualized skin without rashes, cyanosis. The patient has numerous scratches to the left lower extremity that appear to be a few days old and are healing appropriately. He has evidence of redness, swelling, and induration of the left great toe Neuro: No obvious focal deficits or facial asymmetry. Speaks in full, clear sentences. Moves all 4 extremities symmetrically Psych: Appropriate for situation. MDM: This is a 39-year-old male patient presenting for evaluation by EMS for intoxication. Differential includes but is not limited to acute intoxication, withdrawal syndromes, certainly considered cold exposure and hypothermia, temperature in the emergency department was 35.9, with no shivering or indication for active internal rewarming. Considered metabolic and electrolyte derangement, dehydration, kidney injury. I considered intracranial injury and other injuries due to his fall from standing, though he is reassuringly without evidence of same on physical examination and has an intact and symmetrical neuro examination. His left great toe is concerning for cellulitis, I do not see any clear paronychia that would be amenable to drainage. The duration of symptoms reassures me against NSTI. We will obtain laboratory studies to include CBC, CMP, ethanol, urinalysis and U tox. I will provide the patient with initial management of his cellulitis to include Bactrim and Keflex. Seizure pads were placed as a precaution. This patient will require reassessment upon metabolization to determine if he is amenable to admission for detoxification, or if he would be better served by connection to the recovery coaches. ED Course: I reviewed the patient's laboratory studies, which reveal a leukopenia, anemia, and thrombocytopenia which has been demonstrated on prior laboratory studies. He has no electrolyte derangements or evidence of kidney dysfunction, AST is elevated to 79 which is in a 2:1 ratio with ALT consistent with his alcohol use. Mild elevation in alkaline phosphatase. Urinalysis demonstrates small hematuria but no evidence of infection. Talk screen is significant for an ethanol level of 545 and positive THC. The patient met with the addictions recovery specialist, and was able to have a full conversation and is endorsing interest in going through sobriety and detox. Given his history of complicated withdrawal with seizures, he would meet criteria for supervised detox with hospital admission, and would benefit from a phenobarbital protocol. Unfortunately, the patient is still quite intoxicated, and is not yet showing signs of alcohol withdrawal. I did discuss this patient's case with the hospitalist, and the patient will remain in the emergency department until such time as he begins to develop detox symptoms, at which time we will provide him with a phenobarbital load with anticipated admission to the hospitalist service at that time. I did schedule the patient for ongoing Keflex and Bactrim for his left great toe cellulitis. I signed out care of the patient to the oncoming provider prior to metabolization. The patient remained with a CIWA score of 0, was calm, comfortable, and cooperative. He remained hemodynamically appropriate throughout his time under my care. Jyoti Sneed MD Related Data Home Medications ?Medication ?Instructions ?Recorded ?Confirmed levetiracetam 1,000 mg tablet 1,000 mg PO BID 01/13/24 08/17/24 (Keppra) nadolol 20 mg tablet (Corgard) 20 mg PO DAILY 01/13/24 08/17/24 thiamine HCl (vitamin B1) 100 mg 100 mg PO DAILY 01/13/24 08/17/24 tablet Allergies Allergy/AdvReac Type Severity Reaction Status Date / Time No Known Allergies Allergy Unverified 02/26/24 10:15 General Stated Complaint: AMS/LOC ARETHA: 3 Course <Jyoti Sneed MD - Last Filed: 08/17/24 22:50> Vital Signs Vital signs: Vital Signs Temperature 35.9 C L 08/17/24 15:30 Pulse 133 H 08/17/24 15:30 Respiratory Rate 16 08/17/24 15:30 Blood Pressure 166/96 H 08/17/24 15:30 Temperature 35.9 C L 08/17/24 15:30 Temperature Source Oral 08/17/24 15:30 Pulse 133 H 08/17/24 15:30 Respiratory Rate 16 08/17/24 15:30 Respiratory Effort Normal, Non-Labored 08/17/24 15:35 Blood Pressure 166/96 H 08/17/24 15:30 Blood Pressure Position Sitting 08/17/24 15:30 Oxygen Delivery Method Room Air 08/17/24 15:30 Oxygen Flow Rate 0 08/17/24 15:30 Medical Decision Making <Jyoti Sneed MD - Last Filed: 08/17/24 22:50> Quality:SDOH Health Related Social Needs: No Data to Display PFSH <Jyoti Sneed MD - Last Filed: 08/17/24 22:50> All Active Problems (Updated 08/17/24 @ 22:50 by Jyoti Sneed MD) Cellulitis of great toe of left foot (Acute) Thrombocytopenia (Chronic) Leukopenia (Acute) Anemia (Chronic) Alcohol intoxication (Acute) Social History Smoking/Tobacco Use Status: Never Smoking risk assessment performed?: Yes Alcohol Intake: current Alcohol Intake frequency: a few times a month Drug use: Rarely Substance use type: does not use Do you feel safe at home: Yes Do you feel safe in your relationship?: Yes Sign Out <Jyoti Sneed MD - Last Filed: 08/17/24 22:50> Sign Out Data: Sign Out Comment: 39-year-old male patient with a history of alcohol use disorder and a history of alcohol withdrawal seizures who is brought in by EMS after being found intoxicated lying outside. Initial ethanol level 545, has been very pleasant and hemodynamically appropriate. Incidentally noted to have a left great toe cellulitis for which she has scheduled Bactrim and Keflex. The patient met with the recovery coaches, and is greatly desiring of detox and sobriety management resources/rehab. Will require admission due to his history of alcohol withdrawal seizures. Taylor aware, given that he will need to metabolize until it is safe to administer phenobarbital, remaining in the ED on hourly CIWA checks. Last updated by Jyoti Sneed MD at 08/17/24 22:51 PAWSS <Jyoti Sneed MD - Last Filed: 08/17/24 22:50> Have you Been Recently Intoxicated or Drunk Within the Last 30 days?: Yes Have you Ever Experienced Previous Episodes of Alcohol Withdrawal?: Yes Have you ever Experienced Withdrawal Seizures?: Unable to Obtain Have you ever Experienced Delirium Tremens(DT)s?: Unable to Obtain Have you ever undergone Alcohol Rehabilitation Treatment (i.e, inpt ot outpatient treatment programs)?: Yes Have you ever Experienced Blackouts?: Unable to Obtain Have you ever Combined Alcohol with other Downers within the last 90 days?: Unable to Obtain Have you ever Combined Alcohol with any other Substance of Abuse during the last 90 days?: No Positive Blood Alcohol level on Presentation? [PCS.BAL]: Yes Evidence of Increased Autonomic Activity (i.e. HR>120, tremor, sweating, agitation, nausea)?: No Result: 4 <Tremayne Wallace MD - Last Filed: 08/17/24 23:29> Result: 4
[2024-08-17] MEDS: Cephalexin 500 MG CAP PO (16:08)
[2024-08-17] MEDS: Sulfameth/Trimeth DS TAB 1 TAB PO (16:08)
[2024-08-17 16:09] LABS: Abs Immature Grans 0.01 10^3/uL (0.0-0.06); Absolute Basophil Count 0.03 10^3/uL (0.0-0.2); Absolute Eosinophil Count 0.15 10^3/uL (0.0-0.7); Absolute Lymphocyte Count 0.83 10^3/uL (1.2-3.4); Absolute Monocyte Count 0.23 10^3/uL (0.1-0.8); Absolute Neutrophil Count 1.59 10^3/uL (1.2-6.7); Basophils % 1.1 %; Eosinophils % 5.3 %; HCT 31.3 % (40.0-50.0); HGB 8.9 g/dL (13.5-17.5); Immature Grans % 0.4 %; Lymphocytes % 29.2 %; MCH 19.8 pg (27.0-33.0); MCHC 28.4 % (32.0-36.0); MCV 70 fL (80-95); Monocytes % 8.1 %; Neutrophils % 55.9 %; RBC 4.49 10^6/uL (4.36-5.78); RDW 22.2 % (11.8-14.1); RDW-SD 54.4 fL; WBC 2.84 10^3/uL (4.4-10.8)
[2024-08-17 16:23] LABS: ALT 32 U/L (16-63); AST 79 U/L (15-37); Albumin 3.3 g/dL (3.4-5.0); Alkaline Phosphatase 189 U/L (46-116); Anion Gap 10.4 mmol/L (3-11); BUN 8 mg/dL (7-18); Bilirubin, Total 1.08 mg/dL (0.2-1.0); CO2 29.6 mmol/L (21.0-32.0); CREATININE 0.8 mg/dL (0.70-1.30); Calcium 8.6 mg/dL (8.5-10.1); Chloride 105 mmol/L (98-107); Glucose 105 mg/dL (74-106); Magnesium 1.8 mg/dL (1.8-2.4); Potassium 3.8 mmol/L (3.5-5.1); Sodium 145 mmol/L (136-145); Total Protein 9.5 g/dL (6.4-8.2)
[2024-08-17 16:27] LABS: ETHANOL BLOOD 545.7 mg/dL (<10)
[2024-08-17 16:37] LABS: Anisocytosis 1+; Diff Comment RBC Morph Reviewed; Platelet Count 60 10^3/uL (130-400)
[2024-08-17 16:38] LABS: Howell-Jolly Bodies Present; Hypochromasia 1+; Microcytosis 1+; Poikilocytes 1+
[2024-08-17 17:29] LABS: Bilirubin Negative (Negative); Blood Small (Negative); Clarity Clear (Clear); Glucose Negative (Negative); Ketones Negative (Negative); Leukocyte Esterase Negative (Negative); Nitrite Negative (Negative); Urobilinogen 0.2 mg/dL (Up to 0.2)
[2024-08-17 17:42] LABS: Bacteria Negative HPF (Negative); C & S Indicated? No; Crystals Negative HPF (Negative); Epithelial Cells Negative HPF (Negative); Mucus Trace (Negative); WBC 0-2 HPF (0-5)
[2024-08-17 17:48] LABS: *AMPHETAMINES SCREEN URINE Negative (Negative); *BARBITURATES SCREEN URINE Negative (Negative); *BENZODIAZEPINES SCREEN URINE Negative (Negative); Cannabinoids THC Positive (Negative); Cocaine Screen,Urine Negative (Negative); METHADONE URINE SCREEN Negative (Negative); OPIATES URINE SCREEN Negative (Negative)
[2024-08-17 17:54] LABS: Tricyclic Antidepressants Negative (Negative)
[2024-08-18] VITALS (115 sets, daily range): BP systolic 116–158; BP diastolic 71–108; PULSE 71–138; RESP 11–27; TEMP 36.4–37.5; O2SAT 89–100
[2024-08-18] MEDS: Cephalexin 500 MG CAP PO ×5 (03:03→19:41)
[2024-08-18] MEDS: PHENobarbital 200 MG in Normal Saline 50 ML 100 MG IVPB (03:04)
--- NOTE | 2024-08-18 03:10 | HPE_ITS ---
Date of service: 08/18/24 Time of Service: 03:11 Assessment and Plan Assessment and plan (1) Alcohol withdrawal: Status: Acute Assessment and plan: - Patient presented with alcohol intoxication and was observed in the emergency department -Patient wished to speak with middle school football coach which she did not wish to go through alcohol withdrawal -Began to have alcohol withdrawal symptoms around 3 AM and 08/18/2024 -Started on IV phenobarbital loading dose -Given patient's moderate withdrawal symptoms he has been admitted to MedSurg unit, at this time, does not appear to require ICU admission -Continue CIWA scoring and IV phenobarb as needed (2) Cellulitis of great toe of left foot: Status: Acute Assessment and plan: - Without signs of sepsis -Continue Bactrim and Keflex that was initiated in the emergency department History of Present Illness History of Present Illness Chief Complaint: Intoxication Narrative: 39-year-old male with past medical history of alcohol use disorder and history of alcohol withdrawal seizures who presented to the emergency department via EMS for intoxication. Per report from EMS the patient had been seen at work around 2:30 in the afternoon having showed up intoxicated. He states that he was drinking heavily the night before to [employer] and when he showed up to work he was asked to leave. Shortly after that time he was found sleeping on the ground outside. According the patient may have someone experienced a fall therefore he was brought by EMS for further evaluation. In the emergency department the patient was noted as having normal vital signs, normal CBC, CMP, but was visibly intoxicated and had an alcohol level of 545. Initially, as noted the patient appeared to have had a cellulitis of his the great toe on his left foot for which he was started on Keflex and Bactrim. Additionally, while in the emergency department patient wished to speak with middle school football coach and go through alcohol withdrawal. He was evaluated in the emergency department until about 3 AM on 08/18/2024 where he began to have alcohol withdrawal symptoms with a CIWA score of 9. At that time emergency room physician initiated phenobarbital loading dose and paged hospitalist for admission for patient with alcohol withdrawal with history of alcohol withdrawal seizures. Review of Systems All systems reviewed & are unremarkable except as noted in HPI and below PFSH All Active Problems (Updated 08/18/24 @ 03:12 by Jackson Vazquez MD) Alcohol withdrawal (Acute) Cellulitis of great toe of left foot (Acute) Thrombocytopenia (Chronic) Leukopenia (Acute) Anemia (Chronic) Alcohol intoxication (Acute) Social History Smoking/Tobacco Use Status: Never Smoking risk assessment performed?: Yes Alcohol Intake: current Alcohol Intake frequency: a few times a month Drug use: Rarely Substance use type: does not use Do you feel safe at home: Yes Do you feel safe in your relationship?: Yes Meds Allergies and Home Medications Allergies Allergy/AdvReac Type Severity Reaction Status Date / Time No Known Allergies Allergy Unverified 02/26/24 10:15 Home Medications ?Medication ?Instructions ?Recorded ?Confirmed ?Type levetiracetam 1,000 mg tablet 1,000 mg PO BID 01/13/24 08/17/24 History (Keppra) nadolol 20 mg tablet (Corgard) 20 mg PO DAILY 01/13/24 08/17/24 History thiamine HCl (vitamin B1) 100 mg 100 mg PO DAILY 01/13/24 08/17/24 History tablet Exam Narrative Exam Narrative: Well-appearing gentleman laying in bed in no acute distress, ANO x 4, heart regular rhythm, lungs clear to auscultation bilaterally, abdomen soft, nontender, nondistended Results Labs 08/18/24 06:00 08/18/24 06:00 Labs: Laboratory Results - last 24 hr 08/17/24 08/17/24 16:01 17:03 WBC 2.84 L RBC 4.49 Hgb 8.9 L Hct 31.3 L MCV 70 L MCH 19.8 L MCHC 28.4 L RDW 22.2 H Plt Count 60 L MPV Immature Gran % 0.4 Neutrophils % 55.9 Lymphocytes % 29.2 Monocytes % 8.1 Eosinophils % 5.3 Basophils % 1.1 Nucleated RBC % 0.0 Absolute Neutrophils 1.59 Absolute Lymphocytes 0.83 L Absolute Monocytes 0.23 Absolute Eosinophils 0.15 Absolute Basophils 0.03 RBC Morphology See Below Hypochromasia 1+ Poikilocytosis 1+ Anisocytosis 1+ Microcytosis 1+ [place] Bodies Present Sodium 145 Potassium 3.8 Chloride 105 Carbon Dioxide 29.6 Anion Gap 10.4 BUN 8 Creatinine 0.8 Est GFR (CKD-EPI 2020) 116.90 Glucose 105 Calcium 8.6 Magnesium 1.8 Total Bilirubin 1.08 H AST 79 H ALT 32 Alkaline Phosphatase 189 H Total Protein 9.5 H Albumin 3.3 L Urine Color Yellow Urine Clarity Clear Urine pH 7.0 Ur Specific [place] 1.020 Urine Protein >=300 H Urine Ketones Negative Urine Blood Small H Urine Nitrite Negative Urine Bilirubin Negative Urine Urobilinogen 0.2 Ur Leukocyte Esterase Negative Urine RBC 5-10 H Urine WBC 0-2 Ur Epithelial Cells Negative Urine Crystals Negative Urine Bacteria Negative Urine Mucus Trace Ur Culture Indicated? No Urine Glucose Negative Urine Opiates Screen Negative Urine Methadone Screen Negative Ur Barbiturates Screen Negative Ur Tricyclics Screen Negative Ur Amphetamines Screen Negative U Benzodiazepines Scrn Negative Urine Cocaine Screen Negative Ur THC Screen Positive A Ethyl Alcohol 545.7 H Last Vital Signs Temp 96.6 F L 08/17/24 15:30 Pulse 107 H 08/18/24 02:44 Resp 16 08/18/24 02:44 BP 129/82 08/18/24 02:44 Pulse Ox 97 08/18/24 02:44 PAWSS Have you Been Recently Intoxicated or Drunk Within the Last 30 days?: Yes Have you Ever Experienced Previous Episodes of Alcohol Withdrawal?: Yes Have you ever Experienced Withdrawal Seizures?: Unable to Obtain Have you ever Experienced Delirium Tremens(DT)s?: Unable to Obtain Have you ever undergone Alcohol Rehabilitation Treatment (i.e, inpt ot outpatient treatment programs)?: Yes Have you ever Experienced Blackouts?: Unable to Obtain Have you ever Combined Alcohol with other Downers within the last 90 days?: U nable to Obtain Have you ever Combined Alcohol with any other Substance of Abuse during the last 90 days?: No Positive Blood Alcohol level on Presentation? [PCS.BAL]: Yes Evidence of Increased Autonomic Activity (i.e. HR>120, tremor, sweating, agitation, nausea)?: No Result: 4 Time Spent Time spent with Patient: >75 minutes Time was spent: preparing to see the patient(eg.review tests), obtaining and/or reviewing separately otained hiistory, ordering medications,tests, procedures, referring, communicating with other health home visit field care manager, indepentently interpreting results, counseling the patient and care coordination
[2024-08-18] MEDS: PHENobarbital 150 MG in Normal Saline 50 ML 100 MG IVPB ×2 (05:50→09:21)
[2024-08-18] MEDS: Sulfameth/Trimeth DS TAB 1 TAB PO ×2 (06:05→19:40)
[2024-08-18 06:06] LABS: HCT 26.5 % (40.0-50.0); HGB 7.5 g/dL (13.5-17.5); MCH 19.5 pg (27.0-33.0); MCHC 28.3 % (32.0-36.0); Platelet Count 40 10^3/uL (130-400); RBC 3.84 10^6/uL (4.36-5.78); WBC 2.26 10^3/uL (4.4-10.8)
[2024-08-18 06:14] LABS: Anion Gap 9.5 mmol/L (3-11); BUN 10 mg/dL (7-18); CO2 28.5 mmol/L (21.0-32.0); CREATININE 0.6 mg/dL (0.70-1.30); Calcium 8.2 mg/dL (8.5-10.1); Chloride 104 mmol/L (98-107); Estimated GFR 127.51 (mL/min/1.73m2); Glucose 91 mg/dL (74-106); Magnesium 1.6 mg/dL (1.8-2.4); Potassium 3.8 mmol/L (3.5-5.1); Sodium 142 mmol/L (136-145)
[2024-08-18 06:19] LABS: RDW 22.1 % (11.8-14.1)
[2024-08-18 06:20] LABS: MCV 69 fL (80-95)
--- NOTE | 2024-08-18 06:45 | W.PCEDHO ---
Registration Status: Primary Language: Preferred Language: ED Information & Data Chief Complaint AMS/LOC 08/17/24 15:54 Triage Note Patient found outside, 08/17/24 15:30 laying in the grass. Employer stated patient attempted to go to work around 1430 today. Staff found patient to be under the influence of something Patient told to go home. Most Recent Vital Signs Temperature 36.4 C L 08/18/24 06:11 Temperature Source Oral 08/18/24 06:11 Pulse 86 08/18/24 06:15 Pulse Rhythm Regular 08/18/24 06:11 Pulse Strength Normal 08/18/24 06:11 Pulse 89 08/18/24 06:30 Respiratory Rate 13 08/18/24 06:30 Respiratory Effort Normal 08/18/24 06:11 Respiratory Depth Normal 08/18/24 06:11 Respiratory Pattern Normal 08/18/24 06:11 Blood Pressure 116/76 08/18/24 06:15 Blood Pressure Mean 86 08/18/24 06:15 Blood Pressure Position Supine 08/18/24 06:11 Pulse Oximetry 95 08/18/24 06:30 Oxygen Delivery Method Room Air 08/18/24 06:11 Oxygen Flow Rate 0 08/18/24 06:11 Pain Level 0 08/18/24 06:11 Allergies No Known Allergies Allergy (Unverified 02/26/24 10:15) Precautions Isolation Standard precaution 08/17/24 15:35 Active Medications Generic Name Dose Route Start Last Admin Trade Name Freq PRN Reason Stop Dose Admin Cephalexin 500 mg 08/18/24 00:00 08/18/24 03:03 Cephalexin 500 Mg Cap PO 500 mg QID JOSEE Administration Sodium Chloride 0 ml 08/17/24 20:00 08/18/24 06:31 Normal Saline Flush 10 Ml Syr IVP Not Given BID JOSEE Trimethoprim/Sulfamethoxazole 1 tab 08/18/24 04:00 08/18/24 06:05 Sulfameth/Trimeth Ds Tab PO 1 tab BID JOSEE Administration IV IV Catheter Type [Right Saline Lock Antecubital] IV Catheter Gauge [Right 18 Antecubital] Diet Orders Category Date Time Status Regular/Normal [DIET] Nutrition 08/18/24 Breakfast Active Diagnostics 08/18/24 08/17/24 08/17/24 Range/Units 06:00 17:03 16:01 WBC 2.26 L 2.84 L (4.4-10.8) 10^3/uL RBC 3.84 L 4.49 (4.36-5.78) 10^6/uL Hgb 7.5 L 8.9 L (13.5-17.5) g/dL Hct 26.5 L 31.3 L (40.0-50.0) % MCV 69 L 70 L (80-95) fL MCH 19.5 L 19.8 L (27.0-33.0) pg MCHC 28.3 L 28.4 L (32.0-36.0) % RDW 22.1 H 22.2 H (11.8-14.1) % Plt Count 40 L 60 L (130-400) 10^3/uL MPV (8.0-11.0) fL Immature Gran % 0.4 % Neutrophils % 55.9 % Lymphocytes % 29.2 % Monocytes % 8.1 % Eosinophils % 5.3 % Basophils % 1.1 % Nucleated RBC % 0.0 (0.0-0.3) % Absolute Neutrophils 1.59 (1.2-6.7) 10^3/uL Absolute Lymphocytes 0.83 L (1.2-3.4) 10^3/uL Absolute Monocytes 0.23 (0.1-0.8) 10^3/uL Absolute Eosinophils 0.15 (0.0-0.7) 10^3/uL Absolute Basophils 0.03 (0.0-0.2) 10^3/uL RBC Morphology See Below Hypochromasia 1+ Poikilocytosis 1+ Anisocytosis 1+ Microcytosis 1+ [place] Bodies Present Sodium 142 145 (136-145) mmol/L Potassium 3.8 3.8 (3.5-5.1) mmol/L Chloride 104 105 (98-107) mmol/L Carbon Dioxide 28.5 29.6 (21.0-32.0) mmol/L Anion Gap 9.5 10.4 (3-11) mmol/L BUN 10 8 (7-18) mg/dL Creatinine 0.6 L 0.8 (0.70-1.30) mg/dL Est GFR (CKD-EPI 2020) 127.51 116.90 (mL/min/1.73m2) Glucose 91 105 (74-106) mg/dL Calcium 8.2 L 8.6 (8.5-10.1) mg/dL Magnesium 1.6 L 1.8 (1.8-2.4) mg/dL Total Bilirubin 1.08 H (0.2-1.0) mg/dL AST 79 H (15-37) U/L ALT 32 (16-63) U/L Alkaline Phosphatase 189 H (46-116) U/L Total Protein 9.5 H (6.4-8.2) g/dL Albumin 3.3 L (3.4-5.0) g/dL Urine Color Yellow (Yellow) Urine Clarity Clear (Clear) Urine pH 7.0 (5-8) Ur Specific [place] 1.020 (1.005-1.025) Urine Protein >=300 H (Neg-Trace) mg/dL Urine Ketones Negative (Negative) mg/dL Urine Blood Small H (Negative) Urine Nitrite Negative (Negative) Urine Bilirubin Negative (Negative) Urine Urobilinogen 0.2 (Up to 0.2) mg/dL Ur Leukocyte Esterase Negative (Negative) Urine RBC 5-10 H (0-2) HPF Urine WBC 0-2 (0-5) HPF Ur Epithelial Cells Negative (Negative) HPF Urine Crystals Negative (Negative) HPF Urine Bacteria Negative (Negative) HPF Urine Mucus Trace (Negative) Ur Culture Indicated? No Urine Glucose Negative (Negative) mg/dL Urine Opiates Screen Negative (Negative) Urine Methadone Screen Negative (Negative) Ur Barbiturates Screen Negative (Negative) Ur Tricyclics Screen Negative (Negative) Ur Amphetamines Screen Negative (Negative) U Benzodiazepines Scrn Negative (Negative) Urine Cocaine Screen Negative (Negative) Ur THC Screen Positive A (Negative) Ethyl Alcohol 545.7 H (<10) mg/dL Intake and Output - 24 Hour Total 08/17/24 15:17 thru 08/18/24 06:27 Intake Total 102.6923 Balance 102.6923 Weight 86 kg Intake: IV 102.6923 Falls Risk Assessment History of Falls Admit Due to Fall 08/17/24 16:01 Contributing Factors Confusion 08/17/24 16:01 Ambulatory Aids Independent 08/17/24 16:01 Tubes/Lines None 08/17/24 16:01 Gait Evaluation W/no contributing factors 08/17/24 16:01 Fall Total Score 38 08/17/24 16:01 Level of Risk Moderate Risk 08/17/24 16:01 Problems (Last Reviewed 01/13/24 @ 10:35 by THEODORA Bey) Alcohol withdrawal (Acute) Cellulitis of great toe of left foot (Acute) v v v v v v v v v Sending and/or Receiving Nurses: Please use comment section below to note any information pertinent to the patient hand-off not included above. Information / Comments: Report received from: Edi Marie RN @ 0640 08/18/24
[2024-08-18] MEDS: PHENobarbital 130 MG/ML VIAL IVP (07:30)
[2024-08-18] MEDS: Nadolol 40 MG TAB 20 MG PO (08:27)
[2024-08-18] MEDS: levETIRAcetam 500 MG TAB 1000 MG PO ×2 (08:27→19:39)
[2024-08-18] MEDS: Thiamine 100 MG TAB PO (08:27)
--- NOTE | 2024-08-18 14:46 | W.PC.ACHO ---
Registration Status: Primary Language: Preferred Language: ED Information & Data Chief Complaint AMS/LOC 08/17/24 15:54 Triage Note Patient found outside, 08/17/24 15:30 laying in the grass. Employer stated patient attempted to go to work around 1430 today. Staff found patient to be under the influence of something Patient told to go home. Most Recent Vital Signs Temperature 37.2 C 08/18/24 13:05 Temperature Source Temporal Artery Scan 08/18/24 13:05 Pulse 88 08/18/24 13:05 Pulse Rhythm Regular 08/18/24 06:11 Pulse Strength Normal 08/18/24 06:11 Pulse 86 08/18/24 12:31 Respiratory Rate 18 08/18/24 13:05 Respiratory Effort Normal, Non-Labored 08/18/24 12:49 Respiratory Depth Normal 08/18/24 12:49 Respiratory Pattern Normal 08/18/24 12:49 Blood Pressure 149/108 H 08/18/24 13:05 Blood Pressure Mean 112 08/18/24 12:30 Blood Pressure Position Supine 08/18/24 06:11 Pulse Oximetry 98 08/18/24 13:05 Oxygen Delivery Method Room Air 08/18/24 13:05 Oxygen Flow Rate 0 08/18/24 13:05 Pain Level 7 08/18/24 13:05 Allergies No Known Allergies Allergy (Unverified 02/26/24 10:15) Precautions Isolation Standard precaution 08/17/24 15:35 Active Medications Generic Name Dose Route Start Last Admin Trade Name Freq PRN Reason Stop Dose Admin Cephalexin 500 mg 08/18/24 00:00 08/18/24 12:30 Cephalexin 500 Mg Cap PO 500 mg QID JOSEE Administration Levetiracetam 1,000 mg 08/18/24 08:30 08/18/24 08:27 Levetiracetam 500 Mg Tab PO 1,000 mg BID JOSEE Administration Nadolol 20 mg 08/18/24 08:30 08/18/24 08:27 Nadolol 40 Mg Tab PO 20 mg DAILY JOSEE Administration Phenobarbital Sodium 130 mg 08/18/24 03:20 08/18/24 07:30 Phenobarbital 130 Mg/Ml Vial IVP 130 mg DIRECTED PRN Administration for mild anxiety/agitation Sodium Chloride 0 ml 08/17/24 20:00 08/18/24 08:31 Normal Saline Flush 10 Ml Syr IVP Not Given BID JOSEE Sodium Chloride 0 ml 08/18/24 08:30 08/18/24 08:31 Normal Saline Flush 10 Ml Syr IVP Not Given BID JOSEE Thiamine HCl 100 mg 08/18/24 08:30 08/18/24 08:27 Thiamine 100 Mg Tab PO 100 mg DAILY JOSEE Administration IV IV Catheter Type [Right Saline Lock Antecubital] IV Catheter Gauge [Right 18 Antecubital] Diet Orders Category Date Time Status Regular/Normal [DIET] Nutrition 08/18/24 Breakfast Active Diagnostics 08/18/24 08/17/24 08/17/24 Range/Units 06:00 17:03 16:01 WBC 2.26 L 2.84 L (4.4-10.8) 10^3/uL RBC 3.84 L 4.49 (4.36-5.78) 10^6/uL Hgb 7.5 L 8.9 L (13.5-17.5) g/dL Hct 26.5 L 31.3 L (40.0-50.0) % MCV 69 L 70 L (80-95) fL MCH 19.5 L 19.8 L (27.0-33.0) pg MCHC 28.3 L 28.4 L (32.0-36.0) % RDW 22.1 H 22.2 H (11.8-14.1) % Plt Count 40 L 60 L (130-400) 10^3/uL MPV (8.0-11.0) fL Immature Gran % 0.4 % Neutrophils % 55.9 % Lymphocytes % 29.2 % Monocytes % 8.1 % Eosinophils % 5.3 % Basophils % 1.1 % Nucleated RBC % 0.0 (0.0-0.3) % Absolute Neutrophils 1.59 (1.2-6.7) 10^3/uL Absolute Lymphocytes 0.83 L (1.2-3.4) 10^3/uL Absolute Monocytes 0.23 (0.1-0.8) 10^3/uL Absolute Eosinophils 0.15 (0.0-0.7) 10^3/uL Absolute Basophils 0.03 (0.0-0.2) 10^3/uL RBC Morphology See Below Hypochromasia 1+ Poikilocytosis 1+ Anisocytosis 1+ Microcytosis 1+ [place] Bodies Present Sodium 142 145 (136-145) mmol/L Potassium 3.8 3.8 (3.5-5.1) mmol/L Chloride 104 105 (98-107) mmol/L Carbon Dioxide 28.5 29.6 (21.0-32.0) mmol/L Anion Gap 9.5 10.4 (3-11) mmol/L BUN 10 8 (7-18) mg/dL Creatinine 0.6 L 0.8 (0.70-1.30) mg/dL Est GFR (CKD-EPI 2020) 127.51 116.90 (mL/min/1.73m2) Glucose 91 105 (74-106) mg/dL Calcium 8.2 L 8.6 (8.5-10.1) mg/dL Magnesium 1.6 L 1.8 (1.8-2.4) mg/dL Total Bilirubin 1.08 H (0.2-1.0) mg/dL AST 79 H (15-37) U/L ALT 32 (16-63) U/L Alkaline Phosphatase 189 H (46-116) U/L Total Protein 9.5 H (6.4-8.2) g/dL Albumin 3.3 L (3.4-5.0) g/dL Urine Color Yellow (Yellow) Urine Clarity Clear (Clear) Urine pH 7.0 (5-8) Ur Specific [place] 1.020 (1.005-1.025) Urine Protein >=300 H (Neg-Trace) mg/dL Urine Ketones Negative (Negative) mg/dL Urine Blood Small H (Negative) Urine Nitrite Negative (Negative) Urine Bilirubin Negative (Negative) Urine Urobilinogen 0.2 (Up to 0.2) mg/dL Ur Leukocyte Esterase Negative (Negative) Urine RBC 5-10 H (0-2) HPF Urine WBC 0-2 (0-5) HPF Ur Epithelial Cells Negative (Negative) HPF Urine Crystals Negative (Negative) HPF Urine Bacteria Negative (Negative) HPF Urine Mucus Trace (Negative) Ur Culture Indicated? No Urine Glucose Negative (Negative) mg/dL Urine Opiates Screen Negative (Negative) Urine Methadone Screen Negative (Negative) Ur Barbiturates Screen Negative (Negative) Ur Tricyclics Screen Negative (Negative) Ur Amphetamines Screen Negative (Negative) U Benzodiazepines Scrn Negative (Negative) Urine Cocaine Screen Negative (Negative) Ur THC Screen Positive A (Negative) Ethyl Alcohol 545.7 H (<10) mg/dL Intake and Output - 24 Hour Total 08/17/24 15:17 thru 08/18/24 13:08 Intake Total 373.8461 Output Total 550 Balance -176.1539 Weight 77.111 kg Intake: IV 153.8461 Oral 220 Output: Urine 550 Other: Urine Appearance Clear Falls Risk Assessment History of Falls Previous History 08/18/24 12:49 Contributing Factors Impairments 08/18/24 12:49 Ambulatory Aids Independent 08/17/24 16:01 Tubes/Lines None 08/18/24 12:49 Gait Evaluation No gait disturbance 08/18/24 12:49 Cognition No cognitive impairment 08/18/24 12:49 Fall Total Score 18 08/18/24 12:49 Level of Risk Standard/Low Risk 08/18/24 12:49 Problems (Last Reviewed 01/13/24 @ 10:35 by THEODORA Bey) Alcohol withdrawal (Acute) Cellulitis of great toe of left foot (Acute) v v v v v v v v v Sending and/or Receiving Nurses: Please use comment section below to note any information pertinent to the patient hand-off not included above. Information / Comments: a+ox3, HR reg, LS clear, no skin issues, receiving cefalexin PRN phenobarb. total of 500mg at time of admission. no skin issues, seizure precautions in place Report received from:VIRAL Saunders
[2024-08-18] MEDS: Acetaminophen 325 MG TAB PO (19:41)
[2024-08-18] MEDS: Normal Saline Flush 10 ML SYR IVP (19:41)
[2024-08-19 04:15] VITALS: BP 131/80; PULSE 76; RESP 18; TEMP 36.4; O2SAT 96
[2024-08-19 07:00] LABS: INR 1.4 (0.9-1.1); Prothrombin Time 13.3 sec (9.1-11.1)
[2024-08-19 07:08] LABS: ALT 26 U/L (16-63); AST 87 U/L (15-37); Albumin 2.9 g/dL (3.4-5.0); Alkaline Phosphatase 193 U/L (46-116); Bilirubin, Direct 1.1 mg/dL (0.0-0.2); Total Protein 8.5 g/dL (6.4-8.2)
[2024-08-19 07:09] LABS: Iron 73 ug/dL (65-175)
[2024-08-19 07:15] VITALS: BP 126/84; PULSE 69; RESP 18; TEMP 36.8; O2SAT 99
[2024-08-19 07:21] LABS: Folate 10.2 ng/mL (8.6-20.0)
[2024-08-19 07:33] LABS: Ferritin 39 ng/mL (26-388); HCT 28.8 % (40.0-50.0); HGB 8.1 g/dL (13.5-17.5); MCH 19.4 pg (27.0-33.0); MCHC 28.1 % (32.0-36.0); MCV 69 fL (80-95); RBC 4.17 10^6/uL (4.36-5.78); RDW-SD 51.9 fL; Vitamin B12 776 pg/mL (193-986); WBC 2.04 10^3/uL (4.4-10.8)
[2024-08-19 07:37] LABS: Anion Gap 10.8 mmol/L (3-11); BUN 10 mg/dL (7-18); CO2 24.2 mmol/L (21.0-32.0); CREATININE 0.7 mg/dL (0.70-1.30); Calcium 8.5 mg/dL (8.5-10.1); Chloride 100 mmol/L (98-107); Estimated GFR 121.71 (mL/min/1.73m2); Glucose 85 mg/dL (74-106); Potassium 3.6 mmol/L (3.5-5.1); Sodium 135 mmol/L (136-145)
[2024-08-19 07:39] LABS: Platelet Count 41 10^3/uL (130-400)
--- NOTE | 2024-08-19 08:53 | PDOC.CMIN ---
Date of service: 08/19/24 Time of Service: 08:53 Care Management Initial Assmt Initial Assessment Reason for Hospitalization: ETOH intoxication Functional Status/Living Situation Patient Presentation: Julio was admitted yesterday secondary to extreme alcohol intoxication. He was found outside of his work place, passed out, and EMS was called. He thinks he may have had an unwitnessed seizure, because he feels the way he has in the past when he has had them before. Julio reported to that he had to spend 3 months at [facility] one time, secondary to acute alcohol intake. He made it clear that this time was inpatient, and not rehab. Today Julio was lying flat in the bed when CM met with him. He was pleasant, but not tremendously talkative. He stated that his liver hurts, his back hurts, he has nausea and hasn't been able to eat. He has not met with a Professor Of Practice this admission. He declined offer to call today, maybe tomorrow. He is hoping he will be able to tolerate food soon. Julio lives with his step dad. There is no one listed on his HIPAA. He did not want to call anyone and does not want visitors. Town of Residence: [facility] Resides with: Parent (Lives with his step-dad) Natural Supports: His step dad and his work buddies. Employment Status: Employed (works at [employer]) Instrumental Activities of Daily Living (ADLs): Independent Medications Medication Management: No Issues/Barriers identified Advance Directives Advance Directives: Do you have an Advance Directive: N 01/13/24 10:09 AD On File at [facility]: N 01/12/24 14:16 Date Asked 08/17/24 08/17/24 15:29 AD Date Reviewed COLST On File at [facility] No 08/17/24 15:29 COLST Date Scanned Code Status Resuscitation Status Full Code Portal Pt does not currently have a portal and education provided: No Insurance Coverage/Financial Issues Insurance: [place] medicaid Care Team Visit Care Team Role Provider Type Unknown Unknown Primary Care Provider STAFF PHYSICIAN Tremayne Wallace MD Emergency Provider [facility] STAFF PHYSICIAN Jackson Vazquez MD Admit Provider [facility] STAFF PHYSICIAN Attending Provider Other: will need PCP. Tdoc instructional design specialist was Sara Isabel at [facility] Discharge Potential Discharge Needs: PCP F/U Appt Anticipated Barriers to Discharge: None Identified Patient/Family Education Needs: Review discharge instructions, discuss Ask Me Three Transportation: Private vehicle Plan: Anticipate that Torin will be discharged home with no new services. He will f/u with his PCP whom he identified as Rosa Alvares NP. He will continue per his plan of care and will transport in a private vehicle, driven by his step dad. CM will continue to follow. PFSH All Active Problems (Updated 08/18/24 @ 03:12 by Jackson Vazquez MD) Alcohol withdrawal (Acute) Cellulitis of great toe of left foot (Acute) Thrombocytopenia (Chronic) Leukopenia (Acute) Anemia (Chronic) Alcohol intoxication (Acute) Social History Smoking/Tobacco Use Status: Never Smoking risk assessment performed?: Yes Alcohol Intake: current Alcohol Intake frequency: a few times a month Drug use: Occasionally Substance use type: does not use Housing: house Do you feel safe at home: Yes Do you feel safe in your relationship?: Yes Readmission Within the Past 30 Days Yes or No: No SDOH(Care Management) Screening Will the Patient Participate in the Screening?: Yes Do you worry about having a steady place to live?: yes Problems where you live: no known problems In the past 12 months, have you had to go without electric, gas, oil or water in your home?: yes Have you or anyone in your house had to go without enough food to eat?: no Has lack of transportation kept you from medical appointments or from doing things needed for daily living?: no Has anyone in your support network made you feel unsafe for any reason?: no Health Related Social Needs Health related social needs: housing instability, housed, with risk of homelessness(Z59.811) and material hardship(utilities)(Z59.87)
[2024-08-19 09:51] LABS: Lab Add On Test DONE
[2024-08-19 09:59] LABS: Magnesium 1.5 mg/dL (1.8-2.4)
[2024-08-19] MEDS: Normal Saline Flush 10 ML SYR IVP ×2 (10:03→19:39)
[2024-08-19] MEDS: Sulfameth/Trimeth DS TAB 1 TAB PO ×2 (10:04→19:39)
[2024-08-19] MEDS: Nadolol 40 MG TAB 20 MG PO (10:04)
[2024-08-19] MEDS: Cephalexin 500 MG CAP PO ×4 (10:04→19:39)
[2024-08-19] MEDS: levETIRAcetam 500 MG TAB 1000 MG PO ×2 (10:04→19:38)
[2024-08-19] MEDS: Thiamine 100 MG TAB PO (10:04)
[2024-08-19 11:13] VITALS: BP 114/74; PULSE 70; RESP 18; TEMP 36.7; O2SAT 97
[2024-08-19] MEDS: Acetaminophen 325 MG TAB PO (12:19)
[2024-08-19 15:07] VITALS: BP 118/72; PULSE 71; RESP 18; TEMP 36.6; O2SAT 98
--- NOTE | 2024-08-19 17:02 | PGE_ITS ---
Date of Service Date of service: 08/19/24 Time of Service: 11:00 Assessment and Plan Assessment and plan (1) Alcohol withdrawal: Status: Acute Assessment and plan: Admitted to the medical surgical unit on phenobarb protocol for alcohol withdrawal. -Awaiting recovery operator when medically stable -Began to have alcohol withdrawal symptoms around 3 AM and 08/18/2024 -Started on IV phenobarbital loading dose -Continue CIWA scoring and IV phenobarb as needed Continue thiamine (2) Cellulitis of great toe of left foot: Status: Acute Assessment and plan: - Without signs of sepsis -Continue Bactrim and Keflex that was initiated in the emergency department (3) Hypomagnesemia: Status: Acute Assessment and plan: mag 1.5 Will replete and follow Giving 2 g IV piggyback today (4) Anemia: Status: Chronic Assessment and plan: Iron 73 B 12 776 ferritin 39 folate 10.2 check stool for occult blood In the setting of pancytopenia with a history of excessive alcohol and suspected portal hypertension/cirrhosis consider HIV testing (5) Pancytopenia: Status: Acute Assessment and plan: see above. discussed with Dr Rankin Subjective Subjective Patient reports: voiding w/o difficulty, nausea, vomiting and afebrile; denies tolerating liquids well or shortness of breath Interval history since last seen: not scoring on CIWA but reporting nausea, headache, and generalized body aches. states I feel awful Exam Narrative Exam Narrative: Acutely ill looking male of stated age ambulating to the bathroom. His gait is steady and slow his head is atraumatic eyes noninjected EOMs intact oral mucosa slightly dry his neck is supple with full range of motion his respirations are even and unlabored his skin is pink warm dry well-perfused abdomen is round soft he is moving all of his extremities equally there is no tremor. Neurologic he is awake alert oriented no focal deficits he is responding appropriately psych iatric his mood and affect are blunted/flat. Objective Last Vital Signs Temp 36.6 C 08/19/24 15:07 Pulse 71 08/19/24 15:07 Resp 18 08/19/24 15:07 BP 118/72 08/19/24 15:07 Pulse Ox 98 08/19/24 15:07 Laboratory Results - last 24 hr 08/19/24 06:38 WBC 2.04 L RBC 4.17 L Hgb 8.1 L Hct 28.8 L MCV 69 L MCH 19.4 L MCHC 28.1 L RDW 21.0 H Plt Count 41 L MPV PT 13.3 H INR 1.4 H Sodium 135 L Potassium 3.6 Chloride 100 Carbon Dioxide 24.2 Anion Gap 10.8 BUN 10 Creatinine 0.7 Est GFR (CKD-EPI 2020) 121.71 Glucose 85 Calcium 8.5 Magnesium 1.5 L Iron 73 Ferritin 39 Total Bilirubin 2.00 H Conjugated Bilirubin 1.1 H AST 87 H ALT 26 Alkaline Phosphatase 193 H Total Protein 8.5 H Albumin 2.9 L Vitamin B12 776 Folate 10.2 Add-On Test Request DONE PAWSS Have you Been Recently Intoxicated or Drunk Within the Last 30 days?: Yes Have you Ever Experienced Previous Episodes of Alcohol Withdrawal?: Yes Have you ever Experienced Withdrawal Seizures?: Yes Have you ever Experienced Delirium Tremens(DT)s?: Yes Have you ever undergone Alcohol Rehabilitation Treatment (i.e, inpt ot outpatient treatment programs)?: Yes Have you ever Experienced Blackouts?: Yes Have you ever Combined Alcohol with other Downers within the last 90 days?: No Have you ever Combined Alcohol with any other Substance of Abuse during the last 90 days?: Yes Positive Blood Alcohol level on Presentation? [PCS.BAL]: Yes Evidence of Increased Autonomic Activity (i.e. HR>120, tremor, sweating, agitation, nausea)?: Yes Result: 10 Time Spent with Patient Time Spent with Patient: 35-49 minutes Time was spent: preparing to see the patient(eg.review tests), obtaining and/or reviewing separately otained hiistory, ordering medications,tests, procedures, indepentently interpreting results and counseling the patient
[2024-08-19] MEDS: MAGNESIUM SULFATE 2 GM/50 ML BAG IV_INF (17:54)
[2024-08-19 19:30] VITALS: BP 102/56; PULSE 75; RESP 14; TEMP 36.5; O2SAT 97
[2024-08-19 23:31] VITALS: BP 103/62; PULSE 69; RESP 18; TEMP 36.5; O2SAT 100
[2024-08-20 03:11] VITALS: BP 117/75; PULSE 69; RESP 18; TEMP 36.4; O2SAT 100
[2024-08-20 06:50] LABS: HCT 30.9 % (40.0-50.0); HGB 8.6 g/dL (13.5-17.5); MCH 19.5 pg (27.0-33.0); MCV 70 fL (80-95); RBC 4.42 10^6/uL (4.36-5.78); RDW-SD 53.2 fL; WBC 3.06 10^3/uL (4.4-10.8)
[2024-08-20 06:52] LABS: Anion Gap 8.4 mmol/L (3-11); BUN 13 mg/dL (7-18); CO2 25.6 mmol/L (21.0-32.0); CREATININE 0.8 mg/dL (0.70-1.30); Calcium 8.8 mg/dL (8.5-10.1); Chloride 102 mmol/L (98-107); Glucose 88 mg/dL (74-106); Magnesium 2.2 mg/dL (1.8-2.4); Potassium 4.3 mmol/L (3.5-5.1); Sodium 136 mmol/L (136-145)
[2024-08-20 07:22] VITALS: BP 119/70; PULSE 67; RESP 16; TEMP 37.4; O2SAT 100
[2024-08-20 07:56] LABS: MCHC 27.8 % (32.0-36.0)
[2024-08-20 07:57] LABS: Platelet Count 56 10^3/uL (130-400); RDW 21.4 % (11.8-14.1)
[2024-08-20] MEDS: Nadolol 40 MG TAB 20 MG PO (08:20)
[2024-08-20] MEDS: Cephalexin 500 MG CAP PO ×2 (08:20→11:50)
[2024-08-20] MEDS: levETIRAcetam 500 MG TAB 1000 MG PO (08:20)
[2024-08-20] MEDS: Sulfameth/Trimeth DS TAB 1 TAB PO (08:20)
[2024-08-20] MEDS: Thiamine 100 MG TAB PO (08:21)
[2024-08-20] MEDS: Acetaminophen 325 MG TAB PO (08:21)
[2024-08-20] MEDS: Normal Saline Flush 10 ML SYR IVP (08:21)
[2024-08-20 10:55] VITALS: BP 100/59; PULSE 70; RESP 16; TEMP 36.5; O2SAT 99
--- NOTE | 2024-08-20 11:27 | PDOC.CMDIS ---
Date of service: 08/20/24 Time of Service: 11:27 LACE Index Scoring Tool Questions: Length of Stay (in days): 2 Was the patient admitted via the E.D.?: Yes E.D. Visits: 2 Answers: Total Score: 7 Risk of Readmission: Low Risk Care Management Discharge Plan Reason for Hospitalization: ETOH withdrawal Discharge Plan: Julio is discharged home today with new orders for oral antibiotics. JESSE offered to have him speak with the reading recovery teacher today, but he declined. JESSE did give him the pamphlet with all of the substance misuse services listed. He has contacted [facility], and is hoping to secure a bed there this week. Julio will need to f/u with his PCP and continue per the plan of care. Julio will transport home in a private vehicle. Patient/Family Education Needs: Review of discharge instructions, activity, limitations and follow up plan. Discuss self care needs and Ask me 3. SDOH Health Related Social Needs: Health related social needs housing instability, housed, with risk of homelessness(Z59.811), material hardship(utilities)(Z59.87) Health related social needs: housing instability, housed, with risk of homelessness(Z59.811) and material hardship(utilities)(Z59.87)
--- NOTE | 2024-08-20 12:31 | DSE_ITS ---
Date of service: 08/20/24 Time of Service: 12:31 DS: Diagnosis Discharge Diagnosis (1) Alcohol withdrawal: Status: Acute (2) Cellulitis of great toe of left foot: Status: Acute (3) Hypomagnesemia: Status: Acute (4) Anemia: Status: Chronic (5) Pancytopenia: Status: Acute Discharge Plan Disposition Patient Disposition: Home Condition: Good Discharge Details Reason For Visit: ETOH withdrawal Admit Date/Time: 08/18/24 03:10 Admit Provider: Jackson Vazquez Attending Provider: Jackson Vazquez Primary Care Provider: Rosa Alvares Hospital Course Hospital Course: 39-year-old male with a past medical history of alcohol use disorder and a history of alcohol withdrawal seizures. The patient presented to the emergency department via EMS after being found intoxicated at work. According to EMS, the patient had arrived at work around 2:30 PM, visibly intoxicated, and was asked to leave. He reported heavy drinking the night before at a [employer] alliance party. Shortly after, he was found sleeping on the ground outside, and there was a suspicion that he may have experienced a fall. EMS was called for transport to the ED for further evaluation. Upon arrival in the ED, the patient was noted to have normal vital signs, a normal CBC and CMP, but was visibly intoxicated with a blood alcohol level of 545 mg/dL. The patient also exhibited cellulitis of the left great toe, and treatment with Keflex and Bactrim was initiated. The patient expressed a desire to speak with a data recovery planner and undergo evaluation for alcohol withdrawal. He was monitored in the ED and, at approximately 3:00 AM on 08/18/2024, began exhibiting symptoms of alcohol withdrawal, with a CIWA score of 9. In response, a loading dose of phenobarbital was administered, and the hospitalist team was paged for admission due to the patient's history of alcohol withdrawal seizures. Hospital Course: In the ED, the patient's alcohol withdrawal symptoms were managed with phenobarbital. He was monitored closely, and his CIWA score was reassessed. Throughout his stay, the patient's withdrawal symptoms remained manageable with pharmacologic support, and there was no evidence of seizures. The patient continued to receive intravenous fluids and antibiotics for the cellulitis of his left great toe. A consult with the data recovery planner was arranged, and the patient engaged in discussions about ongoing alcohol use treatment and withdrawal management. Discharge Plan: * The patient was stable at the time of discharge * He was provided with resources for alcohol use disorder treatment and encouraged to participate in ongoing recovery support. * Follow-up appointments were scheduled with both addiction medicine and primary care. * He was instructed to complete a full course of antibiotics for cellulitis. * Given the patient's history of alcohol withdrawal seizures, close follow-up was emphasized, and he was advised to seek medical attention immediately if he experiences any worsening withdrawal symptoms or signs of complications. Medications at Discharge: * Keflex 500 mg po every 6 hours for cellulitis * Bactrim DS 1 tablet po every 12 hours for cellulitis Follow-up: * Addiction medicine consultation * Primary care follow-up in 1 week * Alcohol use disorder treatment program Home Meds and New Rx's Prescriptions: New sulfamethoxazole-trimethoprim 800-160 mg Tablet 1 tab PO BID Qty: 8 0RF cephalexin 500 mg Capsule 500 mg PO QID Qty: 16 0RF Continued levetiracetam [Keppra] 1,000 mg tablet 1,000 mg PO BID thiamine HCl (vitamin B1) 100 mg tablet 100 mg PO DAILY nadolol [Corgard] 20 mg tablet 20 mg PO DAILY Discharge Instructions Instructions: Alcohol withdrawal, Alcohol Use Disorder (DC), Cephalexin, Sulfamethoxazole and Trimethoprim, Cellulitis (skin infection) in adults - Discharge instructions Additional Instructions: Go to [facility] as planned. Continue home meds. See your PCP regarding your toe and for post hospitalization follow up. Do not drink alcohol. Continue bactrim and cephalexin until finished Stand Alone Forms: Nursing Discharge Form Referrals: Jackson Vazquez MD [ [facility] STAFF PHYSICIAN] - Rosa Alvares [Primary Care Provider] - (Please call the office to set up a hospital follow up with in 10-14 days. ) Activity:: Activity as Tolerated Equipment/Supplies:: No Equipment Needed Diet:: As Tolerated Discharge Orders Discharge Orders: Discharge Order (Routine); Ordered 08/20/24 Ordered By: Veronica Hensley Discharge Data Discharge Date/Time-TO BE ENTERED AT DEPARTURE: 08/20/24 13:10 DS: Summary Time Spent with Patient providing and/or coordinating discharge services: Greater than 30 minutes Status at Discharge Functional status at discharge: independent ambulation Overall status at discharge: patient is back to baseline Mental Status: mental status grossly normal Speech and Movement: speech and movement normal Mood: congruent mood Affect: normal affect Quality:SDOH Health Related Social Needs: Health related social needs housing instability, house d, with risk of homelessness(Z59.811), material hardship(utilities)(Z59.87) Exam Psych Mental Status: mental status grossly normal Speech and Movement: speech and movement normal Mood: congruent mood Affect: normal affect DS: Data Vitals/I&O Vitals and I&O: Vital Signs Temperature 36.5 C 08/20/24 10:55 Temperature Source Temporal Artery Scan 08/20/24 10:55 Pulse 70 08/20/24 10:55 Pulse Rhythm Regular 08/18/24 06:11 Pulse Strength Normal 08/18/24 06:11 Pulse 86 08/18/24 12:31 Respiratory Rate 16 08/20/24 10:55 Respiratory Effort Normal, Non-Labored 08/18/24 12:49 Respiratory Depth Normal 08/18/24 12:49 Respiratory Pattern Normal 08/18/24 12:49 Blood Pressure 100/59 L 08/20/24 10:55 Blood Pressure Mean 112 08/18/24 12:30 Blood Pressure Position Supine 08/18/24 06:11 Pulse Oximetry 99 08/20/24 10:55 Oxygen Delivery Method Room Air 08/20/24 10:55 Oxygen Flow Rate 0 08/20/24 10:55 Pain Level 5 08/20/24 10:55 Comment pT reports feeling pain in his liver; pT reports feeling a head sims and slight nausea when repositioning self in bed 08/20/24 07:22 Intake & Output 08/19/24 08/20/24 08/20/24 23:59 11:59 23:59 Intake Total 740 / 1420 1030 / 1030 Output Total 800 / 800 Balance 740 / 1120 230 / 230 Intake: IV 60 / 60 50 / 50 Oral 680 / 1360 980 / 980 Output: Urine 800 / 800 Other: Urine Color Yellow Light Lizzy Urine Appearance Clear Clear Urine Odor Normal Comment pT stated recent void @0630 Data Completed and Pending Labs on day of discharge: Labs from last 24 hours 08/20/24 06:10 WBC 3.06 L RBC 4.42 Hgb 8.6 L Hct 30.9 L MCV 70 L MCH 19.5 L MCHC 27.8 L RDW 21.4 H Plt Count 56 L MPV Sodium 136 Potassium 4.3 Chloride 102 Carbon Dioxide 25.6 Anion Gap 8.4 BUN 13 Creatinine 0.8 Est GFR (CKD-EPI 2020) 116.90 Glucose 88 Calcium 8.8 Magnesium 2.2 PFSH All Active Problems (Updated 08/20/24 @ 12:29 by Veronica Hensley NP) Pancytopenia (Acute) Hypomagnesemia (Acute) Alcohol withdrawal (Acute) Cellulitis of great toe of left foot (Acute) Thrombocytopenia (Chronic) Leukopenia (Acute) Anemia (Chronic) Alcohol intoxication (Acute) Social History Smoking/Tobacco Use Status: Never Smoking risk assessment performed?: Yes Alcohol Intake: current Alcohol Intake frequency: a few times a month Drug use: Occasionally Substance use type: does not use Housing: house Do you feel safe at home: Yes Do you feel safe in your relationship?: Yes Time Spent with Patient Time Spent with Patient: 45-69 minutes Time was spent: preparing to see the patient(eg.review tests), ordering medications,tests, procedures, referring, communicating with other health rn complex care, indepentently interpreting results, counseling the patient and care coordination
--- NOTE | 2024-08-20 13:12 | NUR.NOTE ---
Iv removed, DSD applied. Pt verbalizes an understanding of follow up orders, medications and appointments. Nursing Note:
== END 2024-08-20 13:10 | disposition home or self-care (01) | DRG 897 ==
LOC: ER 08-18 07:10 → MS 08-18 12:45
PROVIDERS: Emergency Medicine; Family Medicine; Nurse Practitioner Acute Care; Admitting Provider Family Medicine; Emergency Provider Emergency Medicine; PCP Nurse Practitioner Family; Visit Provider Family Medicine
DX: F10.139 Alcohol abuse with withdrawal, unspecified (principal); D61.818 Other pancytopenia; K76.6 Portal hypertension; F10.129 Alcohol abuse with intoxication, unspecified; L03.032 Cellulitis of left toe; E83.42 Hypomagnesemia; D64.9 Anemia, unspecified; D72.819 Decreased white blood cell count, unspecified; D69.6 Thrombocytopenia, unspecified; Y90.8 Blood alcohol level of 240 mg/100 ml or more; K70.30 Alcoholic cirrhosis of liver without ascites
CPT/HCPCS: 00123; 36415; 80048; 80053; 80076; 80307; 85027; 93005; 96365; 96366; 99285; 80320; 81003; 81015; 82607; 82728; 82746; 83540; 83735; 85025; 85610; 93010; 99223; 99232; 99239; J2560; J3475

== ENCOUNTER 2024-08-25 18:29 | Inpatient (IN) | payer MEDICAID, SELFPAY ==
[2024-08-25] VITALS (38 sets, daily range): BP systolic 123–188; BP diastolic 86–101; PULSE 96–155; RESP 0–20; TEMP 36; O2SAT 92–100
--- NOTE | 2024-08-25 18:45 | RT.EKG_ITS ---
APPROVED REPORT Exam: Resting ECG Reason for Exam: Intoxication Patient Location: E HR:104 bpm ECG Measurements Heart Rate [address] 174 P 70 QRSd 85 QRS 51 QT 318 T 80 QTc 418 Conclusion Sinus tachycardia...rate> 99 Probable LVH with secondary repol abnrm...multiple LVH criteria
--- NOTE | 2024-08-25 19:00 | DI.RAD_ITS ---
Exam(s) XR CHEST 2V PA LATERAL EXAM: XR CHEST 2V PA LATERAL CLINICAL HISTORY: cough TECHNIQUE: 2D digital imaging was performed of the chest. Two images were obtained. PA and lateral views were obtained. COMPARISON: No exams were available for comparison FINDINGS: MEDIASTINUM: Normal. HEART: Normal. PULMONARY VASCULATURE: Normal. LUNGS: Clear. PLEURAL SPACE: No pleural effusion or pneumothorax. BONE:Within normal limits for the patient's age. OTHER FINDINGS:Normal. IMPRESSION: No acute pulmonary findings. DATA REPOSITORY: RADIATION DOSE DELIVERED:
[2024-08-25 19:19] LABS: Abs Immature Grans 0.01 10^3/uL (0.0-0.06); Absolute Basophil Count 0.05 10^3/uL (0.0-0.2); Absolute Eosinophil Count 0.08 10^3/uL (0.0-0.7); Absolute Lymphocyte Count 0.86 10^3/uL (1.2-3.4); Absolute Monocyte Count 0.16 10^3/uL (0.1-0.8); Absolute Neutrophil Count 0.64 10^3/uL (1.2-6.7); Basophils % 2.8 %; Eosinophils % 4.4 %; HCT 33.5 % (40.0-50.0); HGB 9.6 g/dL (13.5-17.5); Immature Grans % 0.6 %; Lymphocytes % 47.8 %; MCH 19.9 pg (27.0-33.0); MCHC 28.7 % (32.0-36.0); MCV 70 fL (80-95); Monocytes % 8.9 %; Neutrophils % 35.5 %; RBC 4.82 10^6/uL (4.36-5.78); RDW 22.9 % (11.8-14.1); RDW-SD 55.1 fL
--- NOTE | 2024-08-25 19:20 | ED.GENADUL_ITS ---
Discharge Plan Discharge Details Chief Complaint: OD/Poison Clinical Impression: Cellulitis of great toe of left foot, Leukopenia, Thrombocytopenia, Alcohol intoxication Primary Care Provider: Rosa Alvares ED Provider: Brie Dallas Home Meds and New Rx's Prescriptions: No Action levetiracetam [Keppra] 1,000 mg tablet 1,000 mg PO BID thiamine HCl (vitamin B1) 100 mg tablet 100 mg PO DAILY nadolol [Corgard] 20 mg tablet 20 mg PO DAILY sulfamethoxazole-trimethoprim 800-160 mg Tablet 1 tab PO BID Qty: 8 0RF cephalexin 500 mg Capsule 500 mg PO QID Qty: 16 0RF HPI General Date/Time Provider Initiated Documentation: 08/25/24 18:31 . HPI Narrative: Julio is a 39 year old male who presents to the emergency department today for evaluation of alcohol intoxication. He was brought in by EMS, who said that family called with concern that he may have an infection in his left great toe. Upon arrival, patient was found to be intoxicated after binging on alcohol for the last 2 or 3 days. Torin reports that he has been drinking a large amount of vodka, not sure how much. He does have a history of binge drinking, says that he has a history of seizures when he stops drinking. He is currently in the process of getting bed placement at [facility]. He reports that he fell earlier today while indoors, says that he hit his head. He also reports that he has had a cough. He denies recent fever/chills, congestion, sore throat, change in bowel or bladder function. He does report that he vomited, unclear how many times or when this occurred. He also reports pain to his left great toe, not sure why this hurts him. Past medical history is significant for seizure disorder for which he takes Keppra, last seizure was 7 days ago. Physical exam remarkable for intoxicated patient who is alert and oriented, slow to respond to questions but does answer appropriately. He is unable to provide many details due to intoxication. PERRL, EOMs intact. Slightly tacky mucous membranes. Easy work of breathing, lung sounds clear bilaterally. Normal heart sounds. Abdomen is soft, tender to palpation in the upper quadrants, no ecchymosis, rigidity, or guarding. Head is atraumatic, no palpable skull fractures. No raccoon eyes or Armstrong sign. No bleeding from ears, nose, or mouth. He does have pain with palpation of his left great toe. No lesions, lacerations, or abrasions noted. No obvious swelling or redness. D/dx includes but is not limited to: EtOH intoxication, pancreatitis, gastritis, intracranial hemorrhage due to head injury, electrolyte imbalance, dehydration, pneumonia, viral illness I independently interpreted the following tests: CBC remarkable for leukopenia, white cell count 1.8, previous was 3.06 on 08/20/2024, though patient has had historically white cell count between 2.04 and 2.84 within the last year.. Thrombocytopenia also noted (unchanged from previous), platelets 84. CMP notable for slightly elevated alk phosphatase and AST. Magnesium slightly low at 1.7. Lipase unremarkable. Ethyl alcohol 491.4. Flu and COVID-negative. EKG reassuring, tachycardia with normal intervals, no changes consistent with acute ischemia. Head CT and CXR unremarkable. CT abd/pelvis remarkable for Hepatic cirrhosis, hepatosplenomegaly and abdominal and gastroesophageal varices. While in the emergency department, Julio received Zofran for vomiting and p.o. folate. I did review patient's recent hospitalization records, including discharge summary from 08/20/2024. He was treated with a full course of antibiotics including Keflex and Bactrim for cellulitis of the left great toe. While hospitalized his alcohol withdrawal symptoms were managed with phenobarbital. 2200: Martin continues to rest in room, is now playing on his phone. He is calm and cooperative. He does appear to be more alert and interactive, is now able to answer questions about his toe pain. He is now able to recall that it was infected;admits that he was prescribed 18 tablets of antibiotics, but only took 6 because he has been drunk since discharge from the hospital. Toe does not appear infected at this time, however will continue treatment as prescribed- keflex and bactrim given here in ED for PM dose. [place] and fluids given. Handoff report given to Dr Wallace, overnight physician. Related Data Home Medications ?Medication ?Instructions ?Recorded ?Confirmed levetiracetam 1,000 mg tablet 1,000 mg PO BID 01/13/24 08/25/24 (Keppra) nadolol 20 mg tablet (Corgard) 20 mg PO DAILY 01/13/24 08/25/24 thiamine HCl (vitamin B1) 100 mg 100 mg PO DAILY 01/13/24 08/25/24 tablet cephalexin 500 mg capsule 500 mg PO QID #16 caps 08/20/24 08/25/24 sulfamethoxazole 800 1 tab PO BID #8 tabs 08/20/24 08/25/24 mg-trimethoprim 160 mg tablet Previous Rx's ?Medication ?Instructions ?Recorded cephalexin 500 mg capsule 500 mg PO QID #16 caps 08/20/24 sulfamethoxazole 800 1 tab PO BID #8 tabs 08/20/24 mg-trimethoprim 160 mg tablet Allergies Allergy/AdvReac Type Severity Reaction Status Date / Time No Known Allergies Allergy Unverified 08/25/24 18:42 General Stated Complaint: OD/Poison ARETHA: 3 Review of Systems Narrative: see HPI Exam Const General: cooperative, comfortable, no acute distress, well developed and intoxicated appearing Nutritional Appearance: average body habitus Orientation: alert and oriented x3 HENMT Head: normal to inspection, no palpable skull fracture, normocephalic, atraumatic, no Armstrong's sign, no palpable skull fracture, no raccoon eyes and no scalp tenderness Ears: hearing grossly normal bilaterally General nose exam: external nose normal Face and sinus: normal facial exam Mouth: lip abnormal (dry lips) Neck Neck: normal visual inspection and full ROM Chest Chest: normal inspection of the chest Resp Effort & Inspection: normal respiratory effort and able to speak in complete sentences Auscultation: clear to auscultation bilaterally Cardio Rate: tachycardic Rhythm: regular rhythm GI Inspection: normal to inspection and non-distended Palpation: soft, no guarding and tender in the LUQ and in the RUQ Back/Spine/Pelvis Cervical Spine: normal cervical lordosis and cervical ROM normal Thoracic/Lumbar Spine: thoracic and lumbar spine normal to inspection Course Vital Signs Vital signs: Vital Signs Temperature 36.0 C L 08/25/24 18:34 Pulse 132 H 08/25/24 18:34 Respiratory Rate 20 08/25/24 18:34 Blood Pressure 161/86 H 08/25/24 18:34 Pulse Oximetry 99 08/25/24 18:34 Temperature 36.0 C L 08/25/24 18:34 Pulse 132 H 08/25/24 18:34 Respiratory Rate 18 08/25/24 19:01 Respiratory Effort Normal 11/09/24 19:01 Respiratory Depth Normal 08/25/24 19:01 Respiratory Pattern Normal 08/25/24 19:01 Blood Pressure 161/86 H 08/25/24 18:34 Blood Pressure Position Sitting 08/25/24 18:34 Pulse Oximetry 99 08/25/24 18:34 Oxygen Delivery Method Room Air 08/25/24 18:34 Oxygen Flow Rate 0 08/25/24 18:34 Medical Decision Making Imaging Data Radiologic Study: Radiologist's impression: Exam(s) XR CHEST 2V PA LATERAL EXAM: XR CHEST 2V PA LATERAL CLINICAL HISTORY: cough TECHNIQUE: 2D digital imaging was performed of the chest. Two images were obtained. PA and lateral views were obtained. COMPARISON: No exams were available for comparison FINDINGS: MEDIASTINUM: Normal. HEART: Normal. PULMONARY VASCULATURE: Normal. LUNGS: Clear. PLEURAL SPACE: No pleural effusion or pneumothorax. BONE:Within normal limits for the patient's age. OTHER FINDINGS:Normal. IMPRESSION: No acute pulmonary findings. Radiologic Study #2: Radiologist's impression: Exam(s) CT HEAD WO EXAM: CT HEAD WO CLINICAL HISTORY: ?head injury in intoxicated pt. TECHNIQUE: Imaging Protocol: Axial computed tomography images with coronal and sagittal reformatted images were created and reviewed COMPARISON: CT CT HEAD WO from 01/13/[address] HEAD WO from 02/05/2024 FINDINGS: Ventricles and Extra axial spaces: Normal in size and morphology for the patient's age. Hemorrhage: None. Cerebral parenchyma: Normal. Midline shift: None. Brainstem/Cerebellum: Normal. Calvarium: Normal. There are old nasal bone fractures. Visualized Paranasal sinuses/Mastoids: Clear. Soft Tissues: Unremarkable. IMPRESSION: No acute intracranial process. Radiologic Study #3: Radiologist's impression: Exam(s) CT ABDOMEN PELVIS W EXAM: CT ABDOMEN PELVIS W CLINICAL HISTORY: upper abdominal pain with palpation, ETOH with vom TECHNIQUE: Imaging Protocol: Axial computed tomography images with coronal and sagittal reformatted images were created and reviewed. CONTRAST MATERIAL: Intravenous: Omnipaque 350 Contrast volume:85 mL Oral: No COMPARISON: CT CT ABDOMEN PELVIS W from 02/05/2024 FINDINGS: ABDOMEN: Lung Bases: Gastroesophageal varices are present. Liver: There is heterogeneous decreased attenuation of the liver. There liver also has a nodular contour consistent with hepatic cirrhosis. The liver me asures 18 cm long. No measurable mass. Portal, Superior Mesenteric, and Splenic Veins: Unremarkable. Multiple upper abdominal collaterals vessels are seen. Gallbladder and Biliary Tract: No radiodense calculus or dilation. Pancreas: Normal density, no abnormal calcifications or inflammatory process. Spleen: The spleen measures 14 cm long. Adrenals: No masses seen. Kidneys: Normal size, contour and axis. No radiodense stones or obstructive uropathy. No masses seen. Abdominal Aorta: Abdominal portion non-dilated. Mild atherosclerotic calcification. Bowel: No obstruction or bowel wall thickening. Appendix is unremarkable. Peritoneal Cavity: No ascites, collection or mesenteric inflammatory response. No free air. Lymph Nodes: Within normal limits. Bones: Within normal limits for the patient's age. There is an old healed right rib fracture. Soft Tissues: There is a small fat containing umbilical hernia. PELVIS: Bladder: Symmetric distention, no gross wall thickening. Reproductive Organs: Unremarkable as visualized. Lymph Nodes: Within normal limits. Bones: Within normal limits for the patient's age. IMPRESSION: 1. No acute abdominal or pelvic process. 2. Hepatic cirrhosis, hepatosplenomegaly and abdominal and gastroesophageal varices. Quality:SDOH Health Related Social Needs: Health related social needs housing instability, house d, with risk of homelessness(Z59.811), material hardship(utilities)(Z59.87) [facility] All Active Problems (Updated 08/25/24 @ 22:21 by Brie Hutchison) Alcohol withdrawal (Acute) Cellulitis of great toe of left foot (Acute) Thrombocytopenia (Chronic) Leukopenia (Acute) Alcohol intoxication (Acute) Social History Smoking/Tobacco Use Status: Never Smoking risk assessment performed?: Yes Alcohol Intake: current Alcohol Intake frequency: a few times a month Drug use: Occasionally Substance use type: does not use Housing: house Do you feel safe at home: Yes Do you feel safe in your relationship?: Yes Sign Out Sign Out Data: Sign Out Comment: 39-year-old male seen today for evaluation of EtOH intoxication (binging x 2 days) and left great toe pain was recently discharged from [facility] w/ dx of great toe cellulitis and EtOH withdrawal. ETOH 491. He has been inconsistent with abx at home due to intoxication; no evidence at this time for significant cellulitis. Labs significant for pancytopenia. No acute changes on head CT, CXR, or CT abd/pel. Last updated by Brie Dallas at 08/25/24 22:52 PAWSS Have you Been Recently Intoxicated or Drunk Within the Last 30 days?: Yes Have you Ever Experienced Previous Episodes of Alcohol Withdrawal?: Yes Have you ever Experienced Withdrawal Seizures?: Yes Have you ever Experienced Delirium Tremens(DT)s?: No Have you ever undergone Alcohol Rehabilitation Treatment (i.e, inpt ot outpatient treatment programs)?: Yes Have you ever Experienced Blackouts?: Yes Have you ever Combined Alcohol with other Downers within the last 90 days?: No Have you ever Combined Alcohol with any other Substance of Abuse during the last 90 days?: No Evidence of Increased Autonomic Activity (i.e. HR>120, tremor, sweating, agitation, nausea)?: Yes Result: 6
[2024-08-25 19:31] LABS: Anisocytosis 1+; Diff Comment Diff Reviewed; Hypochromasia 2+; Microcytosis 2+; Platelet Count 84 10^3/uL (130-400)
[2024-08-25 19:32] LABS: Poikilocytes 1+
[2024-08-25 19:54] LABS: ALT 53 U/L (16-63); AST 173 U/L (15-37); Albumin 3.5 g/dL (3.4-5.0); Alkaline Phosphatase 207 U/L (46-116); Anion Gap 13.6 mmol/L (3-11); BUN 10 mg/dL (7-18); Bilirubin, Total 0.87 mg/dL (0.2-1.0); CO2 27.4 mmol/L (21.0-32.0); CREATININE 0.8 mg/dL (0.70-1.30); Calcium 8.5 mg/dL (8.5-10.1); Chloride 104 mmol/L (98-107); Glucose 122 mg/dL (74-106); Lipase 50 U/L (16-77); Magnesium 1.7 mg/dL (1.8-2.4); Potassium 3.8 mmol/L (3.5-5.1); Sodium 145 mmol/L (136-145); Total Protein 9.9 g/dL (6.4-8.2)
[2024-08-25 19:56] LABS: ETHANOL BLOOD 491.4 mg/dL (<10)
[2024-08-25] MEDS: Omnipaque 350 MG/ML 100 ML BTL IJ (20:12)
--- NOTE | 2024-08-25 20:20 | DI.CT_ITS ---
Exam(s) CT HEAD WO EXAM: CT HEAD WO CLINICAL HISTORY: ?head injury in intoxicated pt. TECHNIQUE: Imaging Protocol: Axial computed tomography images with coronal and sagittal reformatted images were created and reviewed COMPARISON: CT CT HEAD WO from 01/13/[address] HEAD WO from 02/05/2024 FINDINGS: Ventricles and Extra axial spaces: Normal in size and morphology for the patient's age. Hemorrhage: None. Cerebral parenchyma: Normal. Midline shift: None. Brainstem/Cerebellum: Normal. Calvarium: Normal. There are old nasal bone fractures. Visualized Paranasal sinuses/Mastoids: Clear. Soft Tissues: Unremarkable. IMPRESSION: No acute intracranial process. RADIATION DOSE DELIVERED: 911.94mGy.cm Total DLP DATA REPOSITORY: All CT scans at this facility are submitted to the National Radiology Data Registry (NRDR) Dose Index Registry (DIR) with the [employer] (A[employer]). RADIATION OPTIMIZATION: All CT scans at this facility use at least one of these dose optimization te chniques: automated exposure control; mA and/or kV adjustment per patient size (includes targeted exa ms where dose is matched to clinical indication); or iterative reconstruction.
--- NOTE | 2024-08-25 20:21 | DI.CT_ITS ---
Exam(s) CT ABDOMEN PELVIS W EXAM: CT ABDOMEN PELVIS W CLINICAL HISTORY: upper abdominal pain with palpation, ETOH with vom TECHNIQUE: Imaging Protocol: Axial computed tomography images with coronal and sagittal reformatted images were created and reviewed. CONTRAST MATERIAL: Intravenous: Omnipaque 350 Contrast volume:85 mL Oral: No COMPARISON: CT CT ABDOMEN PELVIS W from 02/05/2024 FINDINGS: ABDOMEN: Lung Bases: Gastroesophageal varices are present. Liver: There is heterogeneous decreased attenuation of the liver. There liver also has a nodular con tour consistent with hepatic cirrhosis. The liver measures 18 cm long. No measurable mass. Portal, Superior Mesenteric, and Splenic Veins: Unremarkable. Multiple upper abdominal collaterals ve ssels are seen. Gallbladder and Biliary Tract: No radiodense calculus or dilation. Pancreas: Normal density, no abnormal calcifications or inflammatory process. Spleen: The spleen measures 14 cm long. Adrenals: No masses seen. Kidneys: Normal size, contour and axis. No radiodense stones or obstructive uropathy. No masses seen. Abdominal Aorta: Abdominal portion non-dilated. Mild atherosclerotic calcification. Bowel: No obstruction or bowel wall thickening. Appendix is unremarkable. Peritoneal Cavity: No ascites, collection or mesenteric inflammatory response. No free air. Lymph Nodes: Within normal limits. Bones: Within normal limits for the patient's age. There is an old healed right rib fracture. Soft Tissues: There is a small fat containing umbilical hernia. PELVIS: Bladder: Symmetric distention, no gross wall thickening. Reproductive Organs: Unremarkable as visualized. Lymph Nodes: Within normal limits. Bones: Within normal limits for the patient's age. IMPRESSION: 1. No acute abdominal or pelvic process. 2. Hepatic cirrhosis, hepatosplenomegaly and abdominal and gastroesophageal varices. RADIATION DOSE DELIVERED: 912.29mGy.cm Total DLP DATA REPOSITORY: All CT scans at this facility are submitted to the National Radiology Data Registry (NRDR) Dose Index Registry (DIR) with the [employer] (ACR). RADIATION OPTIMIZATION: All CT scans at this facility use at least one of these dose optimization te chniques: automated exposure control; mA and/or kV adjustment per patient size (includes targeted exa ms where dose is matched to clinical indication); or iterative reconstruction.
[2024-08-25] MEDS: Ondansetron O.D.T. 4 MG TABEF PO (20:38)
[2024-08-25] MEDS: Thiamine 100 MG TAB PO (20:45)
--- NOTE | 2024-08-25 21:24 | DI.VRAD_ITS ---
PROCEDURE INFORMATION: Exam: CT Head Without Contrast Exam date and time: 08/25/2024 8:10 PM Age: 39 years old Clinical indication: Injury or trauma; Fall; Blunt trauma (contusions or hematomas); Consciousness not specified; Injury date: 08/25/24; Patient HX: ? Head injury in intoxicated PT TECHNIQUE: Imaging protocol: Computed tomography of the head without contrast. Radiation optimization: All CT scans at this facility use at least one of these dose optimization techniques: automated exposure control; mA and/or kV adjustment per patient size (includes targeted exams where dose is matched to clinical indication); or iterative reconstruction. COMPARISON: CT HEAD WO 02/05/2024 12:05 PM FINDINGS: Brain: No acute intracranial hemorrhage, mass-effect, midline shift, or extra-axial collection is seen. The ponce white matter differentiation appears preserved. Cerebral ventricles: The ventricular system and basilar cisterns appear appropriate in size and configuration. Paranasal sinuses: The paranasal sinuses appear well aerated. No air-fluid levels are seen. Mastoid air cells: There is opacification of a few left-sided mastoid air cells. The right mastoid air cells appear clear. Auditory system: The middle ear cavities appear clear. Orbital cavities: The globes and intraorbital structures appear grossly intact. Bones: The bony calvarium appears intact. No depressed skull fracture is seen. There are bilateral nasal bone fractures and fractures through the nasal septum with rightward septal deviation, probably old given the lack of soft tissue swelling in the nose. Soft tissues: There is a small left parietal scalp contusion IMPRESSION: No acute intracranial hemorrhage or depressed skull fracture. Dictated and Authenticated by: Gilberto Shin MD. Ordering:VAIBHAV Baird MD
[2024-08-25 21:46] LABS: Bilirubin Negative (Negative); Blood Small (Negative); Clarity Clear (Clear); Glucose Negative (Negative); Ketones Negative (Negative); Leukocyte Esterase Negative (Negative); Nitrite Negative (Negative); Urobilinogen 0.2 mg/dL (Up to 0.2); pH 6.5 (5-8)
[2024-08-25 21:49] LABS: Bacteria Rare HPF (Negative); C & S Indicated? No; Casts Negative LPF (Negative); Crystals Negative HPF (Negative); Epithelial Cells Negative HPF (Negative); Mucus Negative (Negative); WBC Negative HPF (0-5)
[2024-08-25 22:06] LABS: *AMPHETAMINES SCREEN URINE Negative (Negative); *BARBITURATES SCREEN URINE Positive (Negative); *BENZODIAZEPINES SCREEN URINE Negative (Negative); Cannabinoids THC Negative (Negative); Cocaine Screen,Urine Negative (Negative); METHADONE URINE SCREEN Negative (Negative); OPIATES URINE SCREEN Negative (Negative)
[2024-08-25 22:07] LABS: Tricyclic Antidepressants Negative (Negative)
[2024-08-25] MEDS: Sulfameth/Trimeth DS TAB 1 TAB PO (22:32)
[2024-08-25] MEDS: Cephalexin 500 MG CAP PO (22:32)
[2024-08-26] VITALS (55 sets, daily range): BP systolic 120–152; BP diastolic 73–99; PULSE 77–166; RESP 5–25; TEMP 37.2–37.5; O2SAT 84–99
[2024-08-26] MEDS: Acetaminophen 325 MG TAB 650 MG PO (02:57)
[2024-08-26] MEDS: Lidocaine 5% Patch 1 PATCH TP (02:58)
--- NOTE | 2024-08-26 04:30 | ED.PROG_ITS ---
Date of service: 08/26/24 Time of Service: 04:45 Medical Decision Making Patient signed out to me pending sobriety. He was just at this hospital and detoxed from alcohol with phenobarbital. Unfortunately there was no bed available at [facility]. It would appear that he went home and began drinking again. He arrived here with an alcohol level of 500. This morning he is starting to withdrawal and is scored 8 on his CIWA. He is tachycardic, hypertensive, diaphragm, anxious, vomiting. Will repeat his phenobarbital load. Discussed with hospitalist for readmission. Patient accepted for further management of his alcohol withdrawal. Sign Out Sign Out Data: Sign Out Comment: 39-year-old male seen today for evaluation of EtOH intoxication (binging x 2 days) and left great toe pain was recently discharged from [facility] w/ dx of great toe cellulitis and EtOH withdrawal. ETOH 491. He has been inconsistent with abx at home due to intoxication; no evidence at this time for significant cellulitis. Labs significant for pancytopenia. No acute changes on head CT, CXR, or CT abd/pel. Last updated by Brie Dallas at 08/25/24 22:52 Discharge Plan Disposition Patient Disposition: Admit to [facility] Condition: Poor Discharge Details Clinical Impression: Alcohol withdrawal, Cellulitis of great toe of left foot, Alcohol intoxication, Pancytopenia Primary Care Provider: Rosa Alvares ED Provider: Tremayne Wallace [place] Meds and New Rx's Prescriptions: No Action levetiracetam [Keppra] 1,000 mg tablet 1,000 mg PO BID thiamine HCl (vitamin B1) 100 mg tablet 100 mg PO DAILY nadolol [Corgard] 20 mg tablet 20 mg PO DAILY sulfamethoxazole-trimethoprim 800-160 mg Tablet 1 tab PO BID Qty: 8 0RF cephalexin 500 mg Capsule 500 mg PO QID Qty: 16 0RF
--- NOTE | 2024-08-26 04:46 | W.PM.HP.N ---
Date of service: 08/26/24 Time of Service: 04:46 Assessment and Plan Assessment and plan (1) Alcohol withdrawal: Status: Acute Assessment and plan: - Patient presented with alcohol intoxication and was observed in the emergency department -EtOH level >500 upon arrival to ED -Began to have alcohol withdrawal symptoms around 4 AM and 08/26/2024 -Started on IV phenobarbital loading dose -Given patient's moderate withdrawal symptoms he has been admitted to MedSurg unit, at this time, does not appear to require ICU admission -Continue CIWA scoring and IV phenobarb as needed (2) Pancytopenia: Status: Acute Assessment and plan: - Mild worsening from baseline -Follow-up a.m. CBC History of Present Illness History of Present Illness Chief Complaint: alcohol intoxication and withdrawal Narrative: 39-year-old gentleman with a well-known past medical history of alcohol use disorder and alcohol withdrawal most recently at [facility] from 08 18 till 08 20 immediately upon discharge began to again drink alcohol presents to the emergency department concerns that he is intoxicated and wanting to go through withdrawal. Patient states that after being discharged from the hospital on 08/20/2024 he immediately went back to drinking as he was having difficulty getting into [facility]. He is concerned that if he continues to drink it will kill him and he is wishing to go through alcohol withdrawal. She denies any headache, lightheadedness, dizziness, chest pain does state that he has recently vomited, as no current nausea, abdominal pain or diarrhea. In the emergency department the patient was noted as being intoxicated and his alcohol level was greater than 500. His vital signs were notable for some tachycardia and his CBC showed mild worsening of his baseline whitney cytopenia. Initial plan was for patient to sober up in the emergency department and reevaluate in the morning, however around 4:30 AM on 08/26/2024 he began to have elevated CIWA scores, started on IV phenobarb loading dose. At which time emergency room physician paged hospitalist for admission for patient with known alcohol use disorder requiring admission for IV phenobarbital. Review of Systems All systems reviewed & are unremarkable except as noted in HPI and below PFSH All Active Problems (Updated 08/26/24 @ 04:48 by Jackson Vazquez MD) Pancytopenia (Acute) Alcohol withdrawal (Acute) Cellulitis of great toe of left foot (Acute) Thrombocytopenia (Chronic) Leukopenia (Acute) Alcohol intoxication (Acute) Social History Smoking/Tobacco Use Status: Never Smoking risk assessment performed?: Yes Alcohol Intake: current Alcohol Intake frequency: a few times a month Drug use: Occasionally Substance use type: does not use Housing: house Do you feel safe at home: Yes Do you feel safe in your relationship?: Yes Meds Allergies and Home Medications Allergies Allergy/AdvReac Type Severity Reaction Status Date / Time No Known Allergies Allergy Unverified 08/25/24 18:42 Home Medications ?Medication ?Instructions ?Recorded ?Confirmed ?Type levetiracetam 1,000 mg tablet 1,000 mg PO BID 01/13/24 08/25/24 History (Keppra) nadolol 20 mg tablet (Corgard) 20 mg PO DAILY 01/13/24 08/25/24 History thiamine HCl (vitamin B1) 100 mg 100 mg PO DAILY 01/13/24 08/25/24 History tablet cephalexin 500 mg capsule 500 mg PO QID #16 caps 08/20/24 08/25/24 Rx sulfamethoxazole 800 1 tab PO BID #8 tabs 08/20/24 08/25/24 Rx mg-trimethoprim 160 mg tablet Exam Narrative Exam Narrative: Fatigued but well-appearing gentleman laying in bed in no acute distress, ANO x 4, heart regular rhythm, lungs clear to auscultation bilaterally, abdomen soft, nontender, nondistended Results Labs 08/25/24 18:59 08/25/24 18:59 Labs: Laboratory Results - last 24 hr 08/25/24 08/25/24 18:59 21:40 WBC 1.80 L* RBC 4.82 Hgb 9.6 L Hct 33.5 L MCV 70 L MCH 19.9 L MCHC 28.7 L RDW 22.9 H Plt Count 84 L MPV Immature Gran % 0.6 Neutrophils % 35.5 Lymphocytes % 47.8 Monocytes % 8.9 Eosinophils % 4.4 Basophils % 2.8 Nucleated RBC % 0.0 Absolute Neutrophils 0.64 L Absolute Lymphocytes 0.86 L Absolute Monocytes 0.16 Absolute Eosinophils 0.08 Absolute Basophils 0.05 RBC Morphology See Below Hypochromasia 2+ Poikilocytosis 1+ Anisocytosis 1+ Microcytosis 2+ Sodium 145 Potassium 3.8 Chloride 104 Carbon Dioxide 27.4 Anion Gap 13.6 H BUN 10 Creatinine 0.8 Est GFR (CKD-EPI 2020) 116.90 Glucose 122 H Calcium 8.5 Magnesium 1.7 L Total Bilirubin 0.87 AST 173 H ALT 53 Alkaline Phosphatase 207 H Total Protein 9.9 H Albumin 3.5 Lipase 50 Urine Color Yellow Urine Clarity Clear Urine pH 6.5 Ur Specific [place] 1.020 Urine Protein >=300 H Urine Ketones Negative Urine Blood Small H Urine Nitrite Negative Urine Bilirubin Negative Urine Urobilinogen 0.2 Ur Leukocyte Esterase Negative Urine RBC 5-10 H Urine WBC Negative Ur Epithelial Cells Negative Urine Crystals Negative Urine Bacteria Rare Urine Casts Negative Urine Mucus Negative Ur Culture Indicated? No Urine Glucose Negative Urine Opiates Screen Negative Urine Methadone Screen Negative Ur Barbiturates Screen Positive A Ur Tricyclics Screen Negative Ur Amphetamines Screen Negative U Benzodiazepines Scrn Negative Urine Cocaine Screen Negative Ur THC Screen Negative Ethyl Alcohol 491.4 H Last Vital Signs Temp 96.8 F L 08/25/24 18:34 Pulse 105 H 08/26/24 02:31 Resp 14 08/26/24 02:50 BP 128/82 08/26/24 02:31 Pulse Ox 98 08/26/24 02:50 PAWSS Have you Been Recently Intoxicated or Drunk Within the Last 30 days?: Yes Have you Ever Experienced Previous Episodes of Alcohol Withdrawal?: Yes Have you ever Experienced Withdrawal Seizures?: Yes Have you ever Experienced Delirium Tremens(DT)s?: No Have you ever undergone Alcohol Rehabilitation Treatment (i.e, inpt ot outpatient treatment programs)?: Yes Have you ever Experienced Blackouts?: Yes Have you ever Combined Alcohol with other Downers within the last 90 days?: No Have you ever Combined Alcohol with any other Substance of Abuse during the last 90 days?: No Evidence of Increased Autonomic Activity (i.e. HR>120, tremor, sweating, agitation, nausea)?: Yes Result: 6 Time Spent Time spent with Patient: >75 minutes Time was spent: preparing to see the patient(eg.review tests), obtaining and/or reviewing separately otained hiistory, ordering medications,tests, procedures, referring, communicating with other health child care development specialist, indepentently interpreting results, counseling the patient and care coordination
--- NOTE | 2024-08-26 05:34 | W.PC.ACHO ---
Registration Status: Primary Language: Preferred Language: ED Information & Data Chief Complaint OD/Poison 08/25/24 19:25 Other Complaint ETOHWithdr 08/25/24 18:34 Triage Note PT has been binging for the 08/25/24 18:34 last 2 days reports last drink approx 1630 today. PT reports binging on vodka. Was NOT drinking prior to these two days. PT is anxious that the drinking will kill him and got in touch with [facility] 2 days ago. Most Recent Vital Signs Temperature 36.0 C L 08/25/24 18:34 Pulse 114 H 08/26/24 05:00 Pulse 127 H 08/26/24 05:10 Respiratory Rate 11 L 08/26/24 05:10 Respiratory Effort Normal 08/25/24 19:01 Respiratory Depth Normal 08/25/24 19:01 Respiratory Pattern Normal 08/26/24 04:19 Blood Pressure 129/87 08/26/24 05:00 Blood Pressure Mean 99 08/26/24 05:00 Blood Pressure Position Sitting 08/25/24 18:34 Pulse Oximetry 95 08/26/24 05:10 Oxygen Delivery Method Room Air 08/25/24 18:34 Oxygen Flow Rate 0 08/25/24 18:34 Allergies No Known Allergies Allergy (Unverified 08/25/24 18:42) Active Medications Generic Name Dose Route Start Last Admin Trade Name Raciel PRN Reason Stop Dose Admin Iohexol 100 ml 08/25/24 20:15 08/25/24 20:12 Omnipaque 350 Mg/Ml 100 Ml Btl IJ 09/24/24 23:59 100 ml DIRECTED JOSEE Administration Lidocaine 1 patch 08/26/24 03:00 08/26/24 02:58 Lidocaine 5% Patch TP 1 patch Q24H JOSEE Administration IV IV Catheter Type [Left Saline Lock Antecubital] IV Catheter Gauge [Left 20 Antecubital] Diagnostics 08/25/24 08/25/24 Range/Units 21:40 18:59 WBC 1.80 L* (4.4-10.8) 10^3/uL RBC 4.82 (4.36-5.78) 10^6/uL Hgb 9.6 L (13.5-17.5) g/dL Hct 33.5 L (40.0-50.0) % MCV 70 L (80-95) fL MCH 19.9 L (27.0-33.0) pg MCHC 28.7 L (32.0-36.0) % RDW 22.9 H (11.8-14.1) % Plt Count 84 L (130-400) 10^3/uL MPV (8.0-11.0) fL Immature Gran % 0.6 % Neutrophils % 35.5 % Lymphocytes % 47.8 % Monocytes % 8.9 % Eosinophils % 4.4 % Basophils % 2.8 % Nucleated RBC % 0.0 (0.0-0.3) % Absolute Neutrophils 0.64 L (1.2-6.7) 10^3/uL Absolute Lymphocytes 0.86 L (1.2-3.4) 10^3/uL Absolute Monocytes 0.16 (0.1-0.8) 10^3/uL Absolute Eosinophils 0.08 (0.0-0.7) 10^3/uL Absolute Basophils 0.05 (0.0-0.2) 10^3/uL RBC Morphology See Below Hypochromasia 2+ Poikilocytosis 1+ Anisocytosis 1+ Microcytosis 2+ Sodium 145 (136-145) mmol/L Potassium 3.8 (3.5-5.1) mmol/L Chloride 104 (98-107) mmol/L Carbon Dioxide 27.4 (21.0-32.0) mmol/L Anion Gap 13.6 H (3-11) mmol/L BUN 10 (7-18) mg/dL Creatinine 0.8 (0.70-1.30) mg/dL Est GFR (CKD-EPI 2020) 116.90 (mL/min/1.73m2) Glucose 122 H (74-106) mg/dL Calcium 8.5 (8.5-10.1) mg/dL Magnesium 1.7 L (1.8-2.4) mg/dL Total Bilirubin 0.87 (0.2-1.0) mg/dL AST 173 H (15-37) U/L ALT 53 (16-63) U/L Alkaline Phosphatase 207 H (46-116) U/L Total Protein 9.9 H (6.4-8.2) g/dL Albumin 3.5 (3.4-5.0) g/dL Lipase 50 (16-77) U/L Urine Color Yellow (Yellow) Urine Clarity Clear (Clear) Urine pH 6.5 (5-8) Ur Specific [place] 1.020 (1.005-1.025) Urine Protein >=300 H (Neg-Trace) mg/dL Urine Ketones Negative (Negative) mg/dL Urine Blood Small H (Negative) Urine Nitrite Negative (Negative) Urine Bilirubin Negative (Negative) Urine Urobilinogen 0.2 (Up to 0.2) mg/dL Ur Leukocyte Esterase Negative (Negative) Urine RBC 5-10 H (0-2) HPF Urine WBC Negative (0-5) HPF Ur Epithelial Cells Negative (Negative) HPF Urine Crystals Negative (Negative) HPF Urine Bacteria Rare (Negative) HPF Urine Casts Negative (Negative) LPF Urine Mucus Negative (Negative) Ur Culture Indicated? No Urine Glucose Negative (Negative) mg/dL Urine Opiates Screen Negative (Negative) Urine Methadone Screen Negative (Negative) Ur Barbiturates Screen Positive A (Negative) Ur Tricyclics Screen Negative (Negative) Ur Amphetamines Screen Negative (Negative) U Benzodiazepines Scrn Negative (Negative) Urine Cocaine Screen Negative (Negative) Ur THC Screen Negative (Negative) Ethyl Alcohol 491.4 H (<10) mg/dL Intake and Output - 24 Hour Total 08/25/24 18:24 thru 08/26/24 05:11 Intake Total 51.4615 Balance 51.4615 Weight 78.018 kg Intake: IV 51.4615 Falls Risk Assessment History of Falls No History 08/25/24 18:40 Contributing Factors No Factors 08/25/24 18:40 Ambulatory Aids Independent 08/25/24 18:40 Tubes/Lines None 08/25/24 18:40 Gait Evaluation No gait disturbance 08/25/24 18:40 Cognition No cognitive impairment 08/25/24 18:40 Fall Total Score 0 08/25/24 18:40 Level of Risk Standard/Low Risk 08/25/24 18:40 Problems (Last Reviewed 01/13/24 @ 10:35 by THEODORA Bey) Pancytopenia (Acute) Alcohol withdrawal (Acute) Cellulitis of great toe of left foot (Acute) Thrombocytopenia (Chronic) Leukopenia (Acute) Alcohol intoxication (Acute) v v v v v v v v v Sending and/or Receiving Nurses: Please use comment section below to note any information pertinent to the patient hand-off not included above. Information / Comments: Per Miguel STRATTON pt came to ED intoxicated with elevated ETOH level, was going to be discharged to sobriety but pt started to show withdrawal symptoms and was started on phenobarb. Last CIWA score: 8. Pt drinks a handle of vodka/day. Pt c.o.back pain and generalized pain and vomiting. Pt yelling that he had a seizure, unwitnessed by RN, pt on Keppra. WBC 1.8, chronically low. Pt also on abx for left great toe cellulitis. Report received from: Miguel STRATTON at [id number]
--- NOTE | 2024-08-26 07:14 | NUR.NOTE ---
Nursing Note: 629-Dr. Vazquez in room made aware of pts abd pain, guarding, headache 10/10, and back pain. stated pt needs his phenobarb. Med scheduled for 729, pharmacy called to bring it up. Dayshift RNs made aware.
[2024-08-26] MEDS: Nadolol 40 MG TAB 20 MG PO (08:17)
[2024-08-26] MEDS: levETIRAcetam 500 MG TAB 1000 MG PO ×2 (08:17→20:15)
[2024-08-26] MEDS: Cephalexin 500 MG CAP PO ×4 (08:17→20:15)
[2024-08-26] MEDS: Normal Saline Flush 10 ML SYR IVP ×7 (08:18→20:45)
[2024-08-26] MEDS: PHENobarbital 140 MG in Normal Saline 50 ML 100 MG IVPB ×2 (08:50→11:48)
[2024-08-26] MEDS: Ondansetron 4 MG/2 ML VIAL IVP ×2 (09:13→18:33)
--- NOTE | 2024-08-26 10:18 | INITIAL_ITS ---
Date of service: 08/26/24 Time of Service: 10:20 Care Management Initial Assmt Initial Assessment Reason for Hospitalization: ETOH withdrawal Functional Status/Living Situation Patient Presentation: Julio was sleeping when CM attempted to meet with him. Per RN, he was up most of the night and has been given medication for withdrawal, therefore she expects that he will sleep most of the day. Per report, he is pleasant and cooperative. Per chart review, he has been staying with his step father in [facility], and has been trying to get into [facility] unsuccessfully. CM will provide resources and offer organ recovery coordinator support when he is able and ready to communicate. CM will continue to follow. Town of Residence: [place] Resides with: Parent Employment Status: Employed Instrumental Activities of Daily Living (ADLs): Independent Medications Medication Management: No Issues/Barriers identified Advance Directives Advance Directives: Do you have an Advance Directive: N 01/13/24 10:09 AD On File at [facility]: N 01/12/24 14:16 Date Asked 08/26/24 08/26/24 07:48 AD Date Reviewed COLST On File at [facility] No 08/17/24 15:29 COLST Date Scanned Code Status Resuscitation Status Full Code Insurance Coverage/Financial Issues Insurance: [facility] Care Team Visit Care Team Role Provider Type Rosa Alvares Primary Care Provider NURSE PRACTITIONER Tremayne Wallace MD Emergency Provider [facility] STAFF PHYSICIAN Jackson Vazquez MD Admit Provider [facility] STAFF PHYSICIAN Attending Provider Discharge Potential Discharge Needs: PCP F/U Appt Anticipated Barriers to Discharge: None Identified Patient/Family Education Needs: Review discharge instructions, discuss Ask Me Three Transportation: Private vehicle Plan: Anticipate Julio will return home once medically cleared. He will transport via private vehicle by family. He will follow up with his PCP and discharge plan of care. CM will continue to follow. PFSH All Active Problems (Updated 08/26/24 @ 04:48 by Jackson Vazquez MD) Pancytopenia (Acute) Alcohol withdrawal (Acute) Cellulitis of great toe of left foot (Acute) Thrombocytopenia (Chronic) Leukopenia (Acute) Alcohol intoxication (Acute) Social History Smoking/Tobacco Use Status: Never Smoking risk assessment performed?: Yes Alcohol Intake: current Alcohol Intake frequency: a few times a month Drug use: Occasionally Substance use type: does not use Housing: house Do you feel safe at home: Yes Do you feel safe in your relationship?: Yes Readmission Within the Past 30 Days Yes or No: Yes Date of First Admission Date of 1st Admission: 08/18/24 Date of this Admission Date of Admission: 08/26/24 This admission was: Through ED ED visits How many ED visits in the past 12 months: 5 Assessment for Readmission Summary of readmission circumstances, based upon interviews: Per chart review, Julio was admitted for alcohol withdrawal on 08/18/24, and was discharged home on 08/20/24. He stated that he went home and resumed his regular drinking activity after not being able to get into [facility]. CM was unable to meet with him today, but will offer resources and support, including the organ recovery coordinator; [facility] is a self referral, and CM will encourage him to reach out to see if they have any beds avaiable. CM will continue to follow. SDOH(Care Management) Screening Will the Patient Participate in the Screening?: Yes Do you worry about having a steady place to live?: no Problems where you live: no known problems In the past 12 months, have you had to go without electric, gas, oil or water in your home?: no Have you or anyone in your house had to go without enough food to eat?: no Has lack of transportation kept you from medical appointments or from doing things needed for daily living?: no Has anyone in your support network made you feel unsafe for any reason?: no
[2024-08-26] MEDS: Acetaminophen 325 MG TAB PO ×2 (11:38→20:45)
[2024-08-26] MEDS: PHENobarbital 130 MG/ML VIAL IVP (20:48)
[2024-08-27] VITALS (11 sets, daily range): BP systolic 107–139; BP diastolic 81–98; PULSE 72–153; RESP 14–18; TEMP 36.2–37.5; O2SAT 94–98
[2024-08-27] MEDS: Acetaminophen 325 MG TAB PO ×2 (00:36→08:42)
[2024-08-27] MEDS: Ondansetron 4 MG/2 ML VIAL IVP (03:16)
[2024-08-27] MEDS: Normal Saline Flush 10 ML SYR IVP ×5 (03:17→23:43)
[2024-08-27] MEDS: PHENobarbital 130 MG/ML VIAL IVP ×2 (03:40→23:45)
[2024-08-27 06:14] LABS: HCT 27.1 % (40.0-50.0); HGB 7.8 g/dL (13.5-17.5); MCH 19.7 pg (27.0-33.0); MCHC 28.8 % (32.0-36.0); MCV 69 fL (80-95); RDW 21.8 % (11.8-14.1); RDW-SD 53.1 fL; WBC 2.03 10^3/uL (4.4-10.8)
[2024-08-27 06:28] LABS: Anion Gap 7.3 mmol/L (3-11); BUN 8 mg/dL (7-18); CO2 28.7 mmol/L (21.0-32.0); CREATININE 0.7 mg/dL (0.70-1.30); Calcium 8.5 mg/dL (8.5-10.1); Chloride 101 mmol/L (98-107); Estimated GFR 121.71 (mL/min/1.73m2); Glucose 83 mg/dL (74-106); INR 1.3 (0.9-1.1); Magnesium 1.8 mg/dL (1.8-2.4); Potassium 3.7 mmol/L (3.5-5.1); Prothrombin Time 12.7 sec (9.1-11.1); Sodium 137 mmol/L (136-145)
[2024-08-27 06:34] LABS: ALT 43 U/L (16-63); AST 138 U/L (15-37); Alkaline Phosphatase 200 U/L (46-116); Bilirubin, Total 1.99 mg/dL (0.2-1.0); Total Protein 8.5 g/dL (6.4-8.2)
[2024-08-27 07:22] LABS: Platelet Count 37 10^3/uL (130-400)
[2024-08-27 07:24] LABS: RBC 3.95 10^6/uL (4.36-5.78)
[2024-08-27] MEDS: Cephalexin 500 MG CAP PO ×4 (08:42→20:01)
[2024-08-27] MEDS: levETIRAcetam 500 MG TAB 1000 MG PO ×2 (08:42→20:01)
[2024-08-27] MEDS: Nadolol 40 MG TAB 20 MG PO (08:43)
--- NOTE | 2024-08-27 10:10 | W.PM.PROGNOT ---
Date of Service Date of service: 08/27/24 Time of Service: 10:10 Assessment and Plan Assessment and plan (1) Alcohol withdrawal: Status: Acute Assessment and plan: -On presentation to the emergency department, EtOH level >500 -Due to presentation of moderate EtOH withdrawal patient was admitted to medical surgical floor -Reported alcohol withdrawal symptoms starting at around 4 AM and 08/26/2024 -Will continue IV phenobarbital -as 2 doses left before reaching soft limit -CIWA around 3 this morning -will continue CIWA scoring and IV phenobarb as needed -Patient to call rehab for placement and care managers provided information ? Oral folate and thiamine; discontinue banana bag and encourage oral hydration. (2) Pancytopenia: Status: Acute Assessment and plan: - Initially worsening from baseline seems to improve this morning -CBC in a.m. (3) Seizure: Status: Acute Assessment and plan: Will continue oral Keppra and continue to monitor; no acute seizures reported BMP in a.m. (4) Toe pain, left: Status: Acute Assessment and plan: First toe on the left foot seem painful to touch, slight discoloration noticed but no rash or wound Patient was discharged on Keflex oral but mentioned not taking it when he went home. Will continue oral Keflex for short course Will reevaluate daily Discussed with Dr. Concepcion Subjective Subjective Patient reports: tolerating liquids well, tolerating a regular diet, voiding w/o difficulty and nausea; denies blood in stool, vomiting, shortness of breath or fever Exam Narrative Exam Narrative: Constitutional The patient in bed sleepy but arousable to voice ,without acute distress HENMT: Facial structures with normal appearance Neuro:alert and oriented to self, person, place, time and situation. No neurological focal deficit Chest:Chest is symmetrical and normal appearance Resp: Unlabored breathing, clear lung bilaterally Cardio: regular rhythm, S1, S2, no murmur, capillary refill<3 sec., bilateral radial and dorsalis pedis pulses are positive GI: Abdomen is not distended, soft and non tender, bowel sounds are present : Negative Costovertebral angle tenderness, no bladder distension Back/spine/Pelvis: Left back tenderness, normal alignment Integumentary: No skin lesions or rash on exposed skin Extremities: strength 5/5 to bilateral lower and upper extremities Psych: RASS -1 to 0, congruent mood and normal affect. Objective Last Vital Signs Temp 36.8 C 11/11/24 07:31 Pulse 75 08/27/24 07:31 Resp 16 08/27/24 07:31 BP 132/89 08/27/24 07:31 Pulse Ox 96 08/27/24 07:31 Laboratory Results - last 24 hr 08/27/24 05:50 WBC 2.03 L RBC 3.95 L Hgb 7.8 L Hct 27.1 L MCV 69 L MCH 19.7 L MCHC 28.8 L RDW 21.8 H Plt Count 37 L D MPV PT 12.7 H INR 1.3 H Sodium 137 Potassium 3.7 Chloride 101 Carbon Dioxide 28.7 Anion Gap 7.3 BUN 8 Creatinine 0.7 Est GFR (CKD-EPI 2020) 121.71 Glucose 83 Calcium 8.5 Magnesium 1.8 Total Bilirubin 1.99 H Conjugated Bilirubin 1.0 H AST 138 H ALT 43 Alkaline Phosphatase 200 H Total Protein 8.5 H Albumin 3.0 L PAWSS Have you Been Recently Intoxicated or Drunk Within the Last 30 days?: Yes Have you Ever Experienced Previous Episodes of Alcohol Withdrawal?: Yes Have you ever Experienced Withdrawal Seizures?: Yes Have you ever Experienced Delirium Tremens(DT)s?: Yes Have you ever undergone Alcohol Rehabilitation Treatment (i.e, inpt ot outpatient treatment programs)?: Yes Have you ever Experienced Blackouts?: Yes Have you ever Combined Alcohol with other Downers within the last 90 days?: No Have you ever Combined Alcohol with any other Substance of Abuse during the last 90 days?: No Positive Blood Alcohol level on Presentation? [PCS.BAL]: Yes Evidence of Increased Autonomic Activity (i.e. HR>120, tremor, sweating, agitation, nausea)?: Yes Result: 8 Time Spent with Patient Time Spent with Patient: >50 minutes Time was spent: preparing to see the patient(eg.review tests), obtaining and/or reviewing separately otained hiistory, ordering medications,tests, procedures, referring, communicating with other health senior resident care director, indepentently interpreting results, counseling the patient and care coordination
[2024-08-27] MEDS: Folic Acid 1 MG TAB PO (12:01)
[2024-08-27] MEDS: Thiamine 100 MG TAB PO (12:01)
--- NOTE | 2024-08-27 14:01 | PHA.REVIEW2 ---
Pharmacy Admission Review Admission Clinical Review Admission Pharmacy Review: Pancytopenia (Acute) Alcohol withdrawal (Acute) Cellulitis of great toe of left foot (Acute) Leukopenia (Acute) Alcohol intoxication (Acute) No Known Allergies Allergy (Unverified 08/25/24 18:42) Resuscitation Status Full Code Height 6 ft Weight 78.471 kg Pharmacy Admission Review Renal Dosing Renal Dosing: BUN 8 mg/dL (7-18) 08/27/24 05:50 Creatinine 0.7 mg/dL (0.70-1.30) 08/27/24 05:50 Medications needing adjustments: Reviewed (crcl = 160, no adjustments needed) Anticoagulation Anticoagulation: Hgb 7.8 g/dL (13.5-17.5) L 08/27/24 05:50 Hct 27.1 % (40.0-50.0) L 08/27/24 05:50 Plt Count 37 10^3/uL (130-400) L D 08/27/24 05:50 INR 1.3 (0.9-1.1) H 08/27/24 05:50 Creatinine 0.7 mg/dL (0.70-1.30) 08/27/24 05:50 DVT Prophylaxis: Reviewed (none ordered. pancytopenia (plt = 37) + pt is low risk of DVT) Opiate Usage Evaluate Pain Scale/Pains Meds: Reviewed (not on any opiates) Relevant Labs Relevant Labs: Sodium 137 mmol/L (136-145) 08/27/24 05:50 Potassium 3.7 mmol/L (3.5-5.1) 08/27/24 05:50 Chloride 101 mmol/L (98-107) 08/27/24 05:50 Magnesium 1.8 mg/dL (1.8-2.4) 08/27/24 05:50 Electrolytes, C-Reactive P, ESR: Reviewed (pancytopenia) DM Control DM Control: Reviewed (no diabetes diagnosis, no a1c in chart) Cardiac Review BP, HR, EF%: Reviewed QTc Review QTc: Reviewed (Qtc = 418 08/25/24) List meds needing interventions: n/a IV to PO Switch IV Medications: Reviewed (phenobarb prn currently IV, last dose was 08/27 @0341. banana bag dc'd, po thiamine + folic acid started today) Home Meds Home Med List reviewed: Reviewed Medication adherence barriers identified?: pt appears to be noncompliant. unclear what the barriers to adherence are, likely etoh Current Meds Current Medication Order Review: Reviewed Comments: phenobarb etoh withdrawal protocol IBW = 77.6 kg. soft stop = 1164 mg, hard stop = 1552 mg loading dose: 470 mg prn doses so far: 130 mg x 2 (08/26 @2049, 08/27 @0341) total dose given as of 08/27 @ 1400 = 730 mg
[2024-08-27] MEDS: Acetaminophen 500 MG TAB 1000 MG PO ×2 (16:23→22:24)
--- NOTE | 2024-08-27 16:46 | PDOC.CMPRO ---
Date of service: 08/27/24 Time of Service: 16:47 Care Management Progress Note Progress Note Text Progress Note Text: Julio was sleeping when CM met with him earlier today. The blinds were drawn and the room was very dark. Julio did wake when CM said his name, but he was very groggy and was difficult to understand. He did say that after the last admission, he did call [facility], but never heard back. CM encouraged him to call, reminded him that rehabs are self referral. CM left Julio with a list of resources in the state. He did not want to speak with the assistant field hockey coach at this time, but maybe tomorrow when he is not so tired. Discharge Potential Discharge Needs: PCP F/U Appt Anticipated Barriers to Discharge: None Identified Patient/Family Education Needs: Review discharge instructions, discuss Ask Me Three Transportation: Private vehicle Plan: Anticipate Julio will return home once medically cleared. He will transport via private vehicle by family. He will follow up with his PCP and discharge plan of care. CM will continue to follow. SDOH(Care Management) Screening Will the Patient Participate in the Screening?: Yes Do you worry about having a steady place to live?: no Problems where you live: no known problems In the past 12 months, have you had to go without electric, gas, oil or water in your home?: no Have you or anyone in your house had to go without enough food to eat?: no Has lack of transportation kept you from medical appointments or from doing things needed for daily living?: no Has anyone in your support network made you feel unsafe for any reason?: no
[2024-08-28] VITALS (7 sets, daily range): BP systolic 110–122; BP diastolic 70–84; PULSE 67–77; RESP 16–18; TEMP 35.8–37.1; O2SAT 97–100
[2024-08-28] MEDS: MAGNESIUM SULFATE 4 GM/100 ML BAG IV_INF (00:03)
--- NOTE | 2024-08-28 02:44 | CE_ITS ---
Date of service: 08/28/24 Time of Service: 02:45 Event Note: This is a 39-year-old gentleman who has been current alcohol withdrawal now having episodes of tachycardia which appear to be PSVT jumping slightly up to 150 then dropping down to 70 with sinus rhythm. He feels that he is heart rate changes and states that this happens at home all the time. He is on nadolol with no diagnosis of cardiomyopathy or cardiac dysrhythmia on his problem list may not have been taken home with reconciliation saying the product was no longer available. He is on this medication presently. EKG did show LVH with sinus rhythm and cardiac monitoring did appear to be PSVT with rates up to 150 with spontaneous resolution. Troponin was negative. Patient will have echocardiogram that was initiated on metoprolol low-dose 12.5 mg every 6 hours with nadolol discontinued. He will continue to be treated for his alcohol wit hdrawal. Assessment/plan: PSVT with probable previous existence per patient history. Will update echocardiogram and continue metoprolol dose converted to metoprolol succinate at discharge possibly to replace nadolol. Patient may not be compliant with medical therapy as he has in the past. Time Spent with Patient Time spent in critical care(minutes): 30 Time Spent Included: Chart review, Documenting critically ill care, Time at immediate bedside and Discussing critically ill care with other medical staff
[2024-08-28 03:33] LABS: Abs Immature Grans 0.01 10^3/uL (0.0-0.06); Absolute Basophil Count 0.03 10^3/uL (0.0-0.2); Absolute Lymphocyte Count 0.84 10^3/uL (1.2-3.4); Absolute Monocyte Count 0.29 10^3/uL (0.1-0.8); Basophils % 0.9 %; Eosinophils % 6.1 %; HCT 29.2 % (40.0-50.0); HGB 8.4 g/dL (13.5-17.5); Immature Grans % 0.3 %; Lymphocytes % 25.7 %; MCH 19.8 pg (27.0-33.0); MCHC 28.8 % (32.0-36.0); MCV 69 fL (80-95); Monocytes % 8.9 %; Neutrophils % 58.1 %; RBC 4.24 10^6/uL (4.36-5.78); RDW-SD 53.7 fL; WBC 3.27 10^3/uL (4.4-10.8)
[2024-08-28 03:50] LABS: Troponin I 26 ng/L (<or=76)
[2024-08-28 03:51] LABS: ALT 42 U/L (16-63); AST 117 U/L (15-37); Alkaline Phosphatase 227 U/L (46-116); Anion Gap 8.8 mmol/L (3-11); BUN 9 mg/dL (7-18); Bilirubin, Total 1.52 mg/dL (0.2-1.0); CO2 26.2 mmol/L (21.0-32.0); CREATININE 0.8 mg/dL (0.70-1.30); Calcium 8.7 mg/dL (8.5-10.1); Chloride 101 mmol/L (98-107); Glucose 95 mg/dL (74-106); Magnesium 2.9 mg/dL (1.8-2.4); Potassium 4.1 mmol/L (3.5-5.1); Sodium 136 mmol/L (136-145); Total Protein 8.7 g/dL (6.4-8.2)
[2024-08-28 03:54] LABS: Diff Comment RBC Morph Reviewed; Platelet Count 46 10^3/uL (130-400)
[2024-08-28 03:55] LABS: Anisocytosis 1+; Hypochromasia 1+
[2024-08-28 03:56] LABS: Microcytosis 1+; Poikilocytes 1+
[2024-08-28] MEDS: Acetaminophen 500 MG TAB 1000 MG PO ×4 (04:09→22:04)
[2024-08-28] MEDS: Metoprolol 12.5 MG TAB PO ×4 (04:10→22:05)
--- NOTE | 2024-08-28 04:14 | NUR.NOTE ---
Nursing Note: Pt had an eventful night. Pt is been more awake this shift - AAOX4 and making needs known, reported feeling he's getting better and scored up to 5 on CIWA during the first half of the shift. At around 2320 pt was found to be sinus tachy in 140s then svt in 150s sustained for 5 minutes. Pt was mostly asymptomatic, scored 8 on CIWA and other VSS. Night H was notified, this RN requested repeat labs being that pt is pancytopenia and mag is on the lower end of 1.8 only up 0.1 after receiving 2 g 08/26 for low 1.7. NH ordered Mag sulfate 4 g which was administered with prn phenobarb. F/U CIWA was 4, pt reported feeling a bit better afterwards. @ around 0230 pt HR was 49 then went up to 140s and was flip flopping from 50s to 120s to 140s and 150s for another 5 mins. NH was on unit and notified, pt reported this time he felt his heart was heavily pounding on his chest other VSS. NH saw pt at bedside and put in stat orders - EKG, labs and scheduled metoprolol. Pt is currently resting in bed, calm and cooperative with care, VSS ATT. See flow sheet for further details.
--- NOTE | 2024-08-28 08:00 | DI.US_ITS ---
APPROVED REPORT EXAM: Comprehensive 2D, Doppler, and color-flow Echocardiogram Patient Location: In-Patient Room/Bed: 231 Lump Machine Operator: Tasha Florence RDCS (AE) Indications: PSVT Other Information Study Quality: Fair. Technically limited study due to body habitus, inability to position patient exa m done supine bedside. Conclusion Normal left ventricular wall thickness and chamber size. Ejection fraction is 60 to 65%. Wall motio n is normal Grossly normal right ventricular size and function Both atria are normal in size There is no structural or hemodynamically significant valvular disease Wall motion Left Ventricle The left ventricle is normal size. The left ventricular systolic function is normal. The left ventric ular ejection fraction is within the normal range. There is normal left ventricular wall thickness. T here is normal LV segmental wall motion. There is no ventricular septal defect visualized. LVEF is 60 -65%. Right Ventricle The right ventricle is normal size. Atria The left atrium size is normal. The right atrium size is normal. The interatrial septum is intact wit h no evidence for an atrial septal defect. Aortic Valve The aortic valve is normal in structure. Aortic valve is trileaflet. There is no aortic valvular sten osis. No aortic regurgitation is present. Mitral Valve The mitral valve is normal in structure. No evidence of mitral valve stenosis. Trace mitral regurgita tion. Tricuspid Valve The tricuspid valve is normal in structure. There is no tricuspid valve stenosis. Mild tricuspid regu rgitation. Unable to assess PA pressure. Pulmonic Valve The pulmonary valve is normal in structure. There is no pulmonic valvular stenosis. There is no pulmo deshaun valvular regurgitation. Great Vessels The aortic root is normal in size. The ascending aorta is normal in size. The IVC was not visualized. Technically limited imaging. Pericardium technically limited subcostal imaging. Patient unable to tolerate any touch to abdomen. 2D Dimensions IVSD d PLAX 1.07 cm M: 0.6-1.2 Ao Root d 3.06 cm M: 3.1 - 3.7 LVPW d PLAX 1.06 cm M: 0.6 - 1.2 Ao Asc Diam d 3.25 cm M: 2.6 - 3.4 LVID d PLAX 5.14 cm M: 4.2 - 5.8 LVDs 3.30 cm M: 2.5 - 4.0 LV EF Teichholz 64.9 % FS 35.73 % LV EDV (Teich) 125.8 mL LV ESV (Teich) 44.1 mL M-Mode TAPSE 2.90 cm (M/F) >1.7 Auto EF LV EDV A4C 167.5 mL LV EDV A2C 129.7 mL LV EDV BP 145.8 mL LV ESV A4C 72.0 mL LV ESV A2C 56.0 mL LV ESV BP 62.7 mL LVEF(%) A4C 57.0 % LVEF(%) A2C 56.9 % LVEF(%) BP 57.0 % LV SV A4C 95.5 ml LV SV A2C 73.7 ml LV SV BP 83.1 ml LV CO A4C 7.0 L/min LV CO A2C 4.8 L/min LV CO BP 5.9 L/min HR A4C 73.17 BPM HR A2C 64.75 BPM LV EDV Index (BP) LA Volume LA Length A4C 5.6 cm LA Length A2C 4.4 cm LA Area A4C s 17.88 cm2 LA Area A2C s 13.89 cm2 LA Vol A4C A-L 48.53 mL LA Vol A2C A-L 36.93 mL LA Vol Biplane A-L 47.5 mL LA Vol/BSA A4C A-L LA Vol/BSA A2C A-L LA Vol/BSA BP A-L 23.8 mL/m2 LA Vol A4C MOD 46.1 mL LA Vol A2C MOD 35.3 mL LA Vol BP MOD 45.3 mL RA Volume RA Area A4C 14.7 cm2 RA ESV A4C (A-L) 42.7mL RA Vol/BSA A4C A-L RA Length A4C 4.3 cm RA ESV A4C (MOD) 40.5mL LV Diastology MV E' medial 0.092 (>0.07 m/s) MV E Vmax 0.86 (0.4-1.3 m/s) MV E/E' MED 9.32 (<14) MV A Vmax 0.60 (0.4-1.3 m/s) MV E' lateral 0.131 (>0.1 m/s) E/A Ratio 1.4 MV E/E' LAT 6.58 (<14) MV E' Average 0.112 m/s MV E/E'(average) 7.72 Aortic Valve AoV Vmax 1.42 m/s LVOT Vmax 1.15 m/s AoV Peak Grad 8.0 mmHg LVOT Peak Grad 5.3 mmHg AoV Area (Vmax) 2.75 cm2 LVOT VTI 0.224 m AoV VTI 0.263 m LVOT Mean Grad 3.3 mmHg AoV Mean Eduin. 1.00 m/s LVOT SV 76.03 mL AoV Mean Grad 4.6 mmHg LVOT Diam s 2.05 cm AoV Area (VTI) 2.89 cm2 AV Regurg Peak Gr. 8.02 mmHg Velocity Ratio 0.81 Mitral Valve MV DT 240 (160-240 msec) MV Vmax TIPS 0.80 m/s MV Mean Grad 1.1 (<2mmHg) MV VTI 0.252 m Pulmonary Valve PV Vmax 1.12 (0.5-1.5 m/s) RVOT Vmax 0.75 m/s PV Peak Grad 5.0 mmHg RVOT Peak Gr. 2.2 mmHg PV Mean Eduin 0.81 m/s RVOT VTI 0.177 m PV Mean Grad 2.9 mmHg RVOT Mean Gr. 1.3 mmHg Tricuspid Valve TV S' 0.22 m/s
[2024-08-28] MEDS: levETIRAcetam 500 MG TAB 1000 MG PO ×2 (08:33→20:56)
[2024-08-28] MEDS: Normal Saline Flush 10 ML SYR IVP ×3 (08:33→20:56)
[2024-08-28] MEDS: Thiamine 100 MG TAB PO (08:33)
[2024-08-28] MEDS: Folic Acid 1 MG TAB PO (08:33)
[2024-08-28] MEDS: Cephalexin 500 MG CAP PO ×4 (08:33→20:55)
[2024-08-28] MEDS: PHENobarbital 130 MG/ML VIAL IVP (08:52)
--- NOTE | 2024-08-28 11:42 | W.SURGCON ---
Date of service: 08/28/24 Time of Service: 18:00 Assessment and Plan Assessment and plan (1) Portal hypertension with esophageal varices: Status: Acute Assessment and plan: pt needs to have an egd at some point. He should go to and varices banded I don't think he is having any active bleeding at this time If there is any evidence of variceal bleeding that I would recommend starting octreotide (2) Alcoholic cirrhosis of liver without ascites: Status: Acute Assessment and plan: enlarged liver Trend ammonia and INR Recheck ferritin folate and B12. May need additional bolus Check hep C Patient is in advanced liver failure and prognosis is poor if he does not stop drinking at this point in his life There is no ascites at this time (3) Splenomegaly: Status: Acute Assessment and plan: possible plt sequestration vs portal HTN (4) Lumbar compression fracture: Status: Acute (5) Enlarged liver: Status: Acute (6) Alcohol withdrawal: Status: Acute Assessment and plan: Patient is still pretty somnolent and is still recovering from alcohol withdrawals and chronic hepatic failure (7) Thrombocytopenia: Status: Chronic Assessment and plan: splenic sequestration vs decreased production if plts < 10,000 consider tranfusion Most likely resolve spontaneously (8) Pancytopenia: Status: Acute (9) Protein-calorie malnutrition, mild: Status: Acute Assessment and plan: Also a factor in poor production Continue B12 and folate supplementation Recheck levels in a.m. (10) ETOH abuse: Status: Chronic Assessment and plan: ongoing (11) Chronic anemia: Status: Acute Assessment and plan: Most likely multifactorial due to nutritional deficits and a production problem He may also have some portal gastropathy. He is on Protonix currently. He has no signs of active bleeding and is hemodynamically stable. He has been anemic since December when he started coming to the ER at an [facility]. He is currently not stable for scoping Due to low platelets. He he is also a poor candidate for anesthesia due to his active alcohol withdrawals. If he does start bleeding I would recommend octreotide and TXA and urgent transfer to [facility] for esophageal banding Will follow peripherally. Consider EGD once he is medically stable 15 mins spent in direct pt care and 50 in non face to face time History of Present Illness Narrative: I did attempt to interview the pt. He is able to answer yes/no questions. He does admit to having mild abdominal pain in the RUQ. (After reviewing his chart, this has been on-going for quite some time). But mostly he just falls asleep during the interview. BP 115/75 and HR 76. Last night notes were notes. Pt had an episode of PSVT and was started on metoprolol for rate control. Information is taken from RN's. They deny any n/v. He has not had any stools since his re-admission to the hospital. When he came into the hospital, nursing did note bloody stools on his feet. RN's stated the pt told them he has had blood in stools in the past. Pt had an extensive hx of etoh abuse. CT: Lung Bases: Gastroesophageal varices are present. Liver: There is heterogeneous decreased attenuation of the liver. There liver also has a nodular contour consistent with hepatic cirrhosis. The liver measures 18 cm long. No measurable mass. Portal, Superior Mesenteric, and Splenic Veins: Unremarkable. Multiple upper abdominal collaterals vessels are seen. Gallbladder and Biliary Tract: No radiodense calculus or dilation. Pancreas: Normal density, no abnormal calcifications or inflammatory process. Spleen: The spleen measures 14 cm long. Adrenals: No masses seen. Kidneys: Normal size, contour and axis. No radiodense stones or obstructive uropathy. No masses seen. Abdominal Aorta: Abdominal portion non-dilated. Mild atherosclerotic calcification. Bowel: No obstruction or bowel wall thickening. Appendix is unremarkable. Peritoneal Cavity: No ascites, collection or mesenteric inflammatory response. No free air. Lymph Nodes: Within normal limits. Bones: Within normal limits for the patient's age. There is an old healed right rib fracture. Soft Tissues: There is a small fat containing umbilical hernia. PELVIS: Bladder: Symmetric distention, no gross wall thickening. Reproductive Organs: Unremarkable as visualized. Lymph Nodes: Within normal limits. Bones: Within normal limits for the patient's age. IMPRESSION: 1. No acute abdominal or pelvic process. 2. Hepatic cirrhosis, hepatosplenomegaly and abdominal and gastroesophageal varices. Review of Systems Unobtainable due to mental status PFSH All Active Problems (Updated 08/28/24 @ 22:08 by Dionna Zavala DO) Chronic anemia (Acute) ETOH abuse (Chronic) Protein-calorie malnutrition, mild (Acute) Enlarged liver (Acute) Lumbar compression fracture (Acute) Splenomegaly (Acute) Alcoholic cirrhosis of liver without ascites (Acute) Portal hypertension with esophageal varices (Acute) Abdominal pain (Acute) Seizure (Acute) Toe pain, left (Acute) Pancytopenia (Acute) Alcohol withdrawal (Acute) Cellulitis of great toe of left foot (Acute) Thrombocytopenia (Chronic) Leukopenia (Acute) Alcohol intoxication (Acute) Social History Smoking/Tobacco Use Status: Never Smoking risk assessment performed?: Yes Alcohol Intake: current Alcohol Intake frequency: a few times a month Drug use: Occasionally Substance use type: does not use Housing: house Do you feel safe at home: Yes Do you feel safe in your relationship?: Yes Exam Narrative Exam Narrative: H: nsr L: clear A: no ascites pain in ruq LE- no edema of swelling in toes. Results Last Vital Signs Temp 36.7 C 08/28/24 11:08 Pulse 74 08/28/24 11:08 Resp 18 08/28/24 11:08 BP 111/70 08/28/24 11:08 Pulse Ox 98 08/28/24 11:08 Labs 08/28/24 03:20 08/28/24 03:20 Labs: Laboratory Results - last 24 hr 08/28/24 03:20 WBC 3.27 L RBC 4.24 L Hgb 8.4 L Hct 29.2 L MCV 69 L MCH 19.8 L MCHC 28.8 L RDW 22.0 H Plt Count 46 L MPV Immature Gran % 0.3 Neutrophils % 58.1 Lymphocytes % 25.7 Monocytes % 8.9 Eosinophils % 6.1 Basophils % 0.9 Nucleated RBC % 0.0 Absolute Neutrophils 1.90 Absolute Lymphocytes 0.84 L Absolute Monocytes 0.29 Absolute Eosinophils 0.20 Absolute Basophils 0.03 RBC Morphology See Below Hypochromasia 1+ Poikilocytosis 1+ Anisocytosis 1+ Microcytosis 1+ Sodium 136 Potassium 4.1 Chloride 101 Carbon Dioxide 26.2 Anion Gap 8.8 BUN 9 Creatinine 0.8 Est GFR (CKD-EPI 2020) 116.90 Glucose 95 Calcium 8.7 Magnesium 2.9 H Total Bilirubin 1.52 H AST 117 H ALT 42 Alkaline Phosphatase 227 H Troponin I 26 Total Protein 8.7 H Albumin 3.0 L
[2024-08-28] MEDS: Pantoprazole 40 MG VIAL IVP (12:29)
[2024-08-28] MEDS: Omnipaque 350 MG/ML 100 ML BTL IJ (12:57)
[2024-08-28] MEDS: Normal Saline - Diluent 50 ML VIAL IJ (12:58)
--- NOTE | 2024-08-28 12:59 | DI.CT_ITS ---
Exam(s) CT CHEST/ABD/PEL W EXAM: CT CHEST/ABD/PEL W CLINICAL HISTORY: ABD,back pain, pelvic tenderness. TECHNIQUE: Imaging Protocol: Axial computed tomography images with coronal and sagittal reformatted images were created and reviewed. Computer aided detection (CAD) was utilized. CONTRAST MATERIAL: Intravenous: Omnipaque 350 Contrast volume:100 ml Oral: no COMPARISON: CT CT THORACIC LUMBAR SPINE REC from 01/13/2024 CR XR CHEST 2V PA LATERAL from 08/25/[address] ABDOMEN PELVIS W from 08/25/2024 FINDINGS: CHEST: Tracheobronchial tree: Patent. Pulmonary parenchyma: No consolidation or dominant measurable mass. Pleura: No effusion or pneumothorax. Mediastinum: Small lymph nodes noted in the mediastinum. Severe varices noted at the distal esophagu s. Aorta: Thoracic portion non-dilated. Pulmonary arteries: No visible emboli. Heart: No pericardial effusion. Mild coronary artery calcifications. Bones: Unremarkable for age. No lytic or blastic lesions.No acute compression fractures. Stable mi nimal anterior wedging and Schmorl's nodes at C2 through C4. Stable mild T12 compression fracture. Soft tissues: Mild bilateral gynecomastia. ABDOMEN and PELVIS: Liver: Nodular cirrhotic appearing liver again noted. No measurable mass. Left upper quadrant an e sophageal varices again noted. No venous thrombosis. Gallbladder and biliary tract: No evidence of stones or wall thickening. No biliary dilatation. Pancreas: Normal density, no abnormal calcifications or inflammatory process. Spleen: Enlarged, unchanged. Kidneys: Normal size, contour and axis. No radiodense stones. No obstructive uropathy. No suspicious masses seen. Adrenal glands: No masses seen. Aorta: Abdominal portion non-dilated. Lymph nodes: Within normal limits. Soft tissues: Unremarkable. Bladder: Unremarkable. Bowel: No obstruction or bowel wall thickening. Appendix normal. Stool in rectum. Colon otherwise unremarkable. Peritoneal cavity: No ascites. No focal collection. No mesenteric inflammatory response. No free ai r. Bones: Unremarkable for age. Reproductive organs: Within normal limits. IMPRESSION: No acute abnormality in the chest, abdomen or pelvis. Prominent esophageal varices again noted. No evidence of rupture of varices. Left upper quadrant va rices also present. Cirrhotic liver and enlarged spleen again noted. RADIATION DOSE DELIVERED: Total DLP DATA REPOSITORY: All CT scans at this facility are submitted to the National Radiology Data Registry (NRDR) Dose Index Registry (DIR) with the [employer] (ACR). RADIATION OPTIMIZATION: All CT scans at this facility use at least one of these dose optimization te chniques: automated exposure control; mA and/or kV adjustment per patient size (includes targeted exa ms where dose is matched to clinical indication); or iterative reconstruction.
--- NOTE | 2024-08-28 13:03 | PGE_ITS ---
Date of Service Date of service: 08/28/24 Time of Service: 13:03 Assessment and Plan Assessment and plan (1) Alcohol withdrawal: Status: Acute Assessment and plan: -Initial EtOH level >500 - moderate EtOH withdrawal l symptoms starting at around 4 AM and 08/26/2024 -Will continue IV phenobarbital -as 1 dose left before reaching soft limit -Continue CIWA scoring and IV phenobarb as needed -Patient to call rehab for placement but stating that he is unable to do today due to poor sleep last night; care managers provided information and willing to assist patient in making the phone call ?Was on oral folate and thiamine; B12 added due to tingling and numbness with level pending (2) Pancytopenia: Status: Acute Assessment and plan: - Again improving pancytopenia from baseline -Will continue to monitor with CBC in a.m. (3) Seizure: Status: Acute Assessment and plan: On oral Keppra and continue to monitor; no acute seizures reported Will continue in the setting of EtOH withdrawal BMP in a.m. (4) Abdominal pain: Status: Acute Assessment and plan: Epigastric and diffuse renal pain mostly radiating to the right side with positive Martinez's sign Patient has a history of esophageal varices with additional report of dark red- brown pieces of stool as per nursing on patient's leg Surgical consult ordered CT chest abdomen pelvis negative for cholecystitis or cholelithiasis but liver cirrhosis and splenomegaly observed (5) Toe pain, left: Status: Acute Assessment and plan: First toe on the left foot seems less painful to touch, slight discoloration noticed earlier is improving Will continue Keflex oral which patient was discharged last week for left toe cellulitis; he had not been compliant status post discharge Discussed with Dr. Concepcion Subjective Subjective Patient reports: still having pain, tolerating liquids well, tolerating a regular diet, bowel movement, nausea and other (Dysuria, intermittent tingling and numbness from chest to toes ); denies vomiting, shortness of breath or fever Exam Narrative Exam Narrative: Constitutional The patient without acute distress but stating that due to poor sleep last night he cannot make the call to rehab facility today HENMT: Facial structures with normal appearance Neuro:alert and oriented to self, person, place, time and situation. No neurological focal deficit Chest:Chest is symmetrical and normal appearance Resp: Unlabored breathing, clear lung bilaterally Cardio: regular rhythm, S1, S2, no murmur, capillary refill<3 sec., bilateral radial and dorsalis pedis pulses are positive GI: Abdomen is not distended, soft and epigastric/ right flank tenderness with positive , bowel sounds are present : Negative Costovertebral angle tenderness, no bladder distension Back/spine/Pelvis: Left back tenderness with slight swelling , normal alignment Integumentary: No skin lesions or rash on exposed skin Extremities: strength 5/5 to bilateral lower and upper extremities Psych: RASS 0, congruent mood and normal affect. Objective Last Vital Signs Temp 36.7 C 08/28/24 11:08 Pulse 74 08/28/24 11:08 Resp 18 08/28/24 11:08 BP 111/70 08/28/24 11:08 Pulse Ox 98 08/28/24 11:08 Laboratory Results - last 24 hr 08/28/24 03:20 WBC 3.27 L RBC 4.24 L Hgb 8.4 L Hct 29.2 L MCV 69 L MCH 19.8 L MCHC 28.8 L RDW 22.0 H Plt Count 46 L MPV Immature Gran % 0.3 Neutrophils % 58.1 Lymphocytes % 25.7 Monocytes % 8.9 Eosinophils % 6.1 Basophils % 0.9 Nucleated RBC % 0.0 Absolute Neutrophils 1.90 Absolute Lymphocytes 0.84 L Absolute Monocytes 0.29 Absolute Eosinophils 0.20 Absolute Basophils 0.03 RBC Morphology See Below Hypochromasia 1+ Poikilocytosis 1+ Anisocytosis 1+ Microcytosis 1+ Sodium 136 Potassium 4.1 Chloride 101 Carbon Dioxide 26.2 Anion Gap 8.8 BUN 9 Creatinine 0.8 Est GFR (CKD-EPI 2020) 116.90 Glucose 95 Calcium 8.7 Magnesium 2.9 H Total Bilirubin 1.52 H AST 117 H ALT 42 Alkaline Phosphatase 227 H Troponin I 26 Total Protein 8.7 H Albumin 3.0 L PAWSS Have you Been Recently Intoxicated or Drunk Within the Last 30 days?: Yes Have you Ever Experienced Previous Episodes of Alcohol Withdrawal?: Yes Have you ever Experienced Withdrawal Seizures?: Yes Have you ever Experienced Delirium Tremens(DT)s?: Yes Have you ever undergone Alcohol Rehabilitation Treatment (i.e, inpt ot outpatient treatment programs)?: Yes Have you ever Experienced Blackouts?: Yes Have you ever Combined Alcohol with other Downers within the last 90 days?: No Have you ever Combined Alcohol with any other Substance of Abuse during the last 90 days?: No Positive Blood Alcohol level on Presentation? [PCS.BAL]: Yes Evidence of Increased Autonomic Activity (i.e. HR>120, tremor, sweating, agitation, nausea)?: Yes Result: 8 Time Spent with Patient Time Spent with Patient: >50 minutes Time was spent: preparing to see the patient(eg.review tests), obtaining and/or reviewing separately otained hiistory, ordering medications,tests, procedures, referring, communicating with other health chronic care nurse, indepentently interpreting results, counseling the patient and care coordination
--- NOTE | 2024-08-28 14:47 | CMPROGNOTE_ITS ---
Date of service: 08/28/24 Time of Service: 14:47 Care Management Progress Note Progress Note Text Progress Note Text: Julio was lying in bed and appeared to be sleeping when CM met with him today. He was easily roused by the knock on the door. He was still very sleepy. Stated that he is still having a lot of sweats and is pretty uncomfortable. Julio declined to speak with the Mig Welder, said he was just not up to it. He stated that tomorrow he would like to take the medicaid ride to [facility]. CM asked if he had secured a bed? Have you called? CM reminded Julio that [facility] is self referral. He has to make the call himself. You told me that, he replied. CM encourged him to call as soon as possible, even if he getsw on the wait list. CM encouraged him to attend [facility] while he is waiting for a bed. Julio stated that we could speak more tomorrow. Discharge Potential Discharge Needs: PCP F/U Appt and Other (in patient alcohol treatment facility) Anticipated Barriers to Discharge: None Identified Patient/Family Education Needs: Review discharge instructions, discuss Ask Me Three Transportation: Private vehicle (Martin is unsure if he will have a ride when he discharges) Plan: Anticipate Julio will return home once medically cleared. He will transport via private vehicle by family or with [facility]. He will follow up with his PCP and discharge plan of care. CM will continue to follow. SDOH(Care Management) Screening Will the Patient Participate in the Screening?: Yes Do you worry about having a steady place to live?: no Problems where you live: no known problems In the past 12 months, have you had to go without electric, gas, oil or water in your home?: no Have you or anyone in your house had to go without enough food to eat?: no Has lack of transportation kept you from medical appointments or from doing things needed for daily living?: no Has anyone in your support network made you feel unsafe for any reason?: no
[2024-08-28] MEDS: Cyanocobalamin 500 MCG TAB 1000 MCG PO (16:45)
[2024-08-28 17:34] LABS: Bilirubin Negative (Negative); Blood Negative (Negative); Clarity Clear (Clear); Glucose Negative (Negative); Ketones Negative (Negative); Leukocyte Esterase Negative (Negative); Nitrite Negative (Negative); pH 7.5 (5-8)
[2024-08-28 17:41] LABS: Vitamin B12 897 pg/mL (193-986)
[2024-08-28] MEDS: Polyethylene Glycol 3350 17 GM PACKET PO (18:47)
[2024-08-28] MEDS: Docusate Sodium 100 MG CAP PO (18:47)
[2024-08-29 03:04] VITALS: BP 126/88; PULSE 67; RESP 16; TEMP 36.8; O2SAT 100
[2024-08-29] MEDS: Metoprolol 12.5 MG TAB PO ×4 (04:32→21:01)
[2024-08-29] MEDS: Acetaminophen 500 MG TAB 1000 MG PO ×4 (04:32→21:00)
[2024-08-29] MEDS: Polyethylene Glycol 3350 17 GM PACKET PO ×2 (07:58→21:01)
[2024-08-29] MEDS: Multivitamin TAB 1 TAB PO ×2 (07:59→13:58)
[2024-08-29] MEDS: Cyanocobalamin 500 MCG TAB 1000 MCG PO (07:59)
[2024-08-29] MEDS: Cephalexin 500 MG CAP PO ×4 (07:59→21:01)
[2024-08-29] MEDS: Thiamine 100 MG TAB PO (07:59)
[2024-08-29] MEDS: levETIRAcetam 500 MG TAB 1000 MG PO ×2 (07:59→21:00)
[2024-08-29] MEDS: Folic Acid 1 MG TAB PO (07:59)
[2024-08-29] MEDS: Normal Saline Flush 10 ML SYR IVP ×3 (08:00→21:07)
[2024-08-29] MEDS: Docusate Sodium 100 MG CAP PO ×3 (08:00→21:01)
[2024-08-29 08:07] VITALS: BP 133/95; PULSE 66; RESP 16; TEMP 37.1; O2SAT 99
[2024-08-29 08:11] LABS: Abs Immature Grans 0.01 10^3/uL (0.0-0.06); Absolute Basophil Count 0.03 10^3/uL (0.0-0.2); Absolute Eosinophil Count 0.19 10^3/uL (0.0-0.7); Absolute Monocyte Count 0.23 10^3/uL (0.1-0.8); Absolute Neutrophil Count 2.19 10^3/uL (1.2-6.7); Basophils % 0.8 %; Eosinophils % 5.2 %; HCT 30.2 % (40.0-50.0); HGB 8.6 g/dL (13.5-17.5); Immature Grans % 0.3 %; Lymphocytes % 27.4 %; MCH 19.9 pg (27.0-33.0); MCHC 28.5 % (32.0-36.0); MCV 70 fL (80-95); Monocytes % 6.3 %; Platelet Count 57 10^3/uL (130-400); RBC 4.32 10^6/uL (4.36-5.78); RDW 22.4 % (11.8-14.1); RDW-SD 54.4 fL; WBC 3.65 10^3/uL (4.4-10.8)
[2024-08-29 08:22] LABS: Ammonia 48 umol/L (11-32)
[2024-08-29 08:23] LABS: Reticulocyte 0.8 % (0.5-2.4)
[2024-08-29 08:40] LABS: ALT 38 U/L (16-63); AST 83 U/L (15-37); Albumin 3.1 g/dL (3.4-5.0); Alkaline Phosphatase 232 U/L (46-116); BUN 12 mg/dL (7-18); Bilirubin, Total 1.21 mg/dL (0.2-1.0); CREATININE 0.7 mg/dL (0.70-1.30); Calcium 8.6 mg/dL (8.5-10.1); Chloride 102 mmol/L (98-107); Estimated GFR 121.71 (mL/min/1.73m2); Ferritin 47 ng/mL (26-388); Glucose 79 mg/dL (74-106); Magnesium 1.9 mg/dL (1.8-2.4); Potassium 3.8 mmol/L (3.5-5.1); Sodium 135 mmol/L (136-145); Total Protein 8.8 g/dL (6.4-8.2)
[2024-08-29 08:42] LABS: Diff Comment RBC Morph Reviewed; Folate 15.3 ng/mL (8.6-20.0)
[2024-08-29 08:43] LABS: Anisocytosis 2+; Microcytosis 2+
[2024-08-29 08:45] LABS: Poikilocytes 2+
[2024-08-29 09:01] LABS: INR 1.6 (0.9-1.1); Prothrombin Time 15.1 sec (9.1-11.1)
--- NOTE | 2024-08-29 10:16 | W.PM.PROGNOT ---
Date of Service Date of service: 08/29/24 Time of Service: 13:52 Assessment and Plan Assessment and plan (1) Alcohol withdrawal: Status: Acute Assessment and plan: Resolving: No phenobarbital X 24 hours- might still have had latency from recent admission with similar presentation on admission -Initial EtOH was level >500 with moderate EtOH withdrawal l symptoms starting at around 4 AM and 08/26/2024 -Will stop IV phenobarbital -Stop CIWA scoring and protocol -Patient to call rehab for placement with help of [facility] swimming coach on 08/30 ?Continue oral folate and thiamine, B12 and MVI- B12 level pending (2) Pancytopenia: Status: Acute Assessment and plan: -Improving pancytopenia from baseline -CBC in a.m. (3) Seizure: Status: Acute Assessment and plan: On oral Keppra but was not taking as ordered- will continue and monitor; no acute seizures reported BMP in a.m. (4) Abdominal pain: Status: Acute Assessment and plan: CT chest abdomen pelvis was negative for cholecystitis or cholelithiasis but liver cirrhosis and splenomegaly observed Improved epigastric/ abd pain - still slightly positive Martinez's sign Patient has a history of esophageal varices- no bleed on CT; LUQ varices also seen Surgical consult completed please read notes: -Unstable for scoping and anesthesia at [facility] w thrombocyopenia, ETOH w/d -If bleeding recommendations for TXA and urgent transfer to [facility] for banding (5) Elevated INR (international normalized ratio): Status: Acute Assessment and plan: INR now 1.6 in the setting of cirrhosis of the liver and splenomegaly and chronic ETOH abuse Low dose oral phytonadione Coags in AM Will monitor for bleeding (6) Toe pain, left: Status: Acute Assessment and plan: Improved symptoms of first toe of the left foot pain Will continue Keflex oral which patient was discharged last week for left toe cellulitis; he had not been compliant status post discharge Discussed with Dr. Concepcion Subjective Subjective Patient reports: no new complaints, feels better, tolerating liquids well, tolerating a regular diet, voiding w/o difficulty, flatus and bowel movement; denies nausea, vomiting, shortness of breath or fever Exam Narrative Exam Narrative: Constitutional The patient without acute distress Neuro:alert and oriented X3 . No neurological focal deficit Chest:Chest is symmetrical and normal appearance Resp: Unlabored breathing, clear lung bilaterally Cardio: regular rhythm, S1, S2, no murmur, capillary refill<3 sec., bilateral radial and dorsalis pedis pulses are positive GI: Abdomen is not distended, soft and epigastric/ right flank tenderness with positive , bowel sounds are present : Negative Costovertebral angle tenderness, no bladder distension Back/spine/Pelvis: Left back tenderness with slight swelling improving - no bruising , normal alignment Integumentary: healing scratches to both legs w/o drainage or redness Extremities: strength 5/5 to bilateral lower and upper extremities Psych: RASS 0, congruent mood and normal to flat affect. Objective Last Vital Signs Temp 37.1 C 08/29/24 08:07 Pulse 66 08/29/24 08:07 Resp 16 08/29/24 08:07 BP 133/95 H 08/29/24 08:07 Pulse Ox 99 08/29/24 08:07 Laboratory Results - last 24 hr 08/28/24 08/28/24 08/29/24 16:30 16:45 07:55 WBC 3.65 L RBC 4.32 L Hgb 8.6 L Hct 30.2 L MCV 70 L MCH 19.9 L MCHC 28.5 L RDW 22.4 H Plt Count 57 L MPV Reticulocyte % (Auto) 0.8 Immature Gran % 0.3 Neutrophils % 60.0 Lymphocytes % 27.4 Monocytes % 6.3 Eosinophils % 5.2 Basophils % 0.8 Nucleated RBC % 0.0 Absolute Neutrophils 2.19 Absolute Lymphocytes 1.00 L Absolute Monocytes 0.23 Absolute Eosinophils 0.19 Absolute Basophils 0.03 RBC Morphology See Below Poikilocytosis 2+ Anisocytosis 2+ Microcytosis 2+ PT 15.1 H INR 1.6 H Sodium 135 L Potassium 3.8 Chloride 102 Carbon Dioxide 26.0 Anion Gap 7.0 BUN 12 Creatinine 0.7 Est GFR (CKD-EPI 2020) 121.71 Glucose 79 Calcium 8.6 Magnesium 1.9 Ferritin 47 Total Bilirubin 1.21 H AST 83 H ALT 38 Alkaline Phosphatase 232 H Ammonia 48 H Total Protein 8.8 H Albumin 3.1 L Vitamin B12 897 Folate 15.3 Urine Color Yellow Urine Clarity Clear Urine pH 7.5 Ur Specific Widener 1.010 Urine Protein Negative Urine Ketones Negative Urine Blood Negative Urine Nitrite Negative Urine Bilirubin Negative Urine Urobilinogen 1.0 H Ur Leukocyte Esterase Negative Urine Glucose Negative PAWSS Have you Been Recently Intoxicated or Drunk Within the Last 30 days?: Yes Have you Ever Experienced Previous Episodes of Alcohol Withdrawal?: Yes Have you ever Experienced Withdrawal Seizures?: Yes Have you ever Experienced Delirium Tremens(DT)s?: Yes Have you ever undergone Alcohol Rehabilitation Treatment (i.e, inpt ot outpatient treatment programs)?: Yes Have you ever Experienced Blackouts?: Yes Have you ever Combined Alcohol with other Downers within the last 90 days?: No Have you ever Combined Alcohol with any other Substance of Abuse during the last 90 days?: No Positive Blood Alcohol level on Presentation? [PCS.BAL]: Yes Evidence of Increased Autonomic Activity (i.e. HR>120, tremor, sweating, agitation, nausea)?: Yes Result: 8 Time Spent with Patient Time Spent with Patient: >50 minutes Time was spent: preparing to see the patient(eg.review tests), obtaining and/or reviewing separately otained hiistory, ordering medications,tests, procedures, referring, communicating with other health disabilities caregiver, indepentently interpreting results, counseling the patient and care coordination
[2024-08-29] MEDS: Phytonadione 5 MG TABLET 2.5 MG PO (10:39)
[2024-08-29] MEDS: Pantoprazole 40 MG VIAL IVP (10:56)
[2024-08-29 11:49] VITALS: BP 103/67; PULSE 78; RESP 16; TEMP 36.8; O2SAT 98
--- NOTE | 2024-08-29 12:27 | PDOC.CMPRO ---
Date of service: 08/29/24 Time of Service: 12:27 Care Management Progress Note Progress Note Text Progress Note Text: Julio was sitting up on the edge of the bed, finishing his lunch, when CM met with him today. He looked his best today, and was very pleasant and alert. CM spoke with the [facility] assistant golf coach prior to seeing Julio. Julio had reached out to her earlier today and she wanted to touch base with a plan. (soccer coach pager [phone]). Julio stated to CM that he called the soccer coach himself this morning. Nasima, the assistant golf coach, is going to come in tomorrow morning around 10am, with an ipad, and help Julio start his self referrals. Julio is interested in in patient treatment and sober living. He had stanother run of afib this morning. He feels that he can not keep on drinking, his body is starting to really take a toll, and he will if he doesn't stop. He sounded sincere. Julio and CM discussed the fact that he may be on a waiting list, and not be able to get into a place right away. He stated that he has a place to stay, and will spend time at Dr. Hendrix's house until he finds a place. CM let Julio know that he had done a good thing today. Discharge Potential Discharge Needs: PCP F/U Appt and Other (soccer coach to help with applications to rehabs and sober housing.) Anticipated Barriers to Discharge: None Identified Patient/Family Education Needs: Review discharge instructions, discuss Ask Me Three Transportation: Private vehicle Plan: Anticipate Julio will return home once medically cleared, he will have a plan in place for treatment with help from the soccer coach. He will transport via private vehicle by family or with [facility]. He will follow up with his PCP and discharge plan of care. CM will continue to follow. SDOH(Care Management) Screening Will the Patient Participate in the Screening?: Yes Do you worry about having a steady place to live?: no Problems where you live: no known problems In the past 12 months, have you had to go without electric, gas, oil or water in your home?: no Have you or anyone in your house had to go without enough food to eat?: no Has lack of transportation kept you from medical appointments or from doing things needed for daily living?: no Has anyone in your support network made you feel unsafe for any reason?: no
[2024-08-29 15:36] VITALS: BP 114/76; PULSE 67; RESP 14; TEMP 37; O2SAT 99
--- NOTE | 2024-08-29 16:32 | PT.INIE ---
PT Notes Visit Reasons: Alcohol withdrawal Physical Therapy Inpatient Initial Evaluation Date: 08/29/2024 Referring Doctor: Oma Bonilla NP PT Orders: PT CONSULT: Safety Consult for D/C Precautions:Standard. Activity as tolerated. Patient Profile/Admitting Diagnosis: Daniel is a 39-year-old male admitted on 08/26/2024 due to alcoholic desiccation. Patient is admitted for management of EtOH EtOH withdrawal, pancytopenia, seizure, abdominal pain and left toe pain. PMHX: All Active Problems (Updated 08/26/24 @ 04:48 by Jackson Vazquez MD) Pancytopenia (Acute) Alcohol withdrawal (Acute) Cellulitis of great toe of left foot (Acute) Thrombocytopenia (Chronic) Leukopenia (Acute) Alcohol intoxication (Acute) Social History/Home Situation: Lives with his father in a private home. Independent with all aspects of ADLs prior to admission. Equipment Owned/DME: None Subjective: Agreeable to mobility and balance assessment. Reported minimal pain in back that did not limit today's assessment. Objective: General Observation: Sleeping but woke up when name was called by PT. Mental Status: Alert and oriented as to person, place, time, and purpose. Able to pay attention, focus, and respond appropriately. Pain: Reported some pain in back which started when he fell under the influence of alcohol Vital Signs: Closely monitored by nursing staff ROM: Right Upper Extremity: Shoulder Flexion WFL. Shoulder abduction WFL. Elbow flexion WFL. Wrist flexion WFL. Functional opening and closing of hand WFL. Left Upper Extremity: Shoulder Flexion WFL. Shoulder abduction WFL. Elbow flexion WFL. Wrist flexion WFL. Functional opening and closing of hand WFL. Right Lower Extremity: Hip flexion WFL. Hip abduction WFL. Knee flexion WFL. Ankle dorsiflexion WFL. Ankle plantarflexion WFL. Left Lower Extremity: Hip flexion WFL. Hip abduction WFL. Knee flexion WFL. Ankle dorsiflexion WFL. Ankle plantarflexion WFL. Strength: Right Upper Extremity: Shoulder flexors 5/5. Shoulder abductors 5/5. Elbow flexors 5/5. Elbow extensors 5/5. Men'S Leather Dress Belt Maker strong. Left Upper Extremity: Shoulder flexors 5/5. Shoulder abductors 5/5. Elbow flexors 5/5. Elbow extensors 5/5. Men'S Leather Dress Belt Maker strong. Right Lower Extremity: Hip flexors 5/5. Hip abductors 5/5. Knee flexors 5/5. Knee extensors 5/5. Ankle dorsiflexors 5/5. Ankle plantarflexors 5/5. Left Lower Extremity: Hip flexors 5/5. Hip abductors 5/5. Knee flexors 5/5. Knee extensors 5/5. Ankle dorsiflexors 5/5. Ankle plantarflexors 5/5. Bed Mobility/Transfers: Rolling independent Supine to sit independent Sit to supine independent Sit to stand independent Stand to sit independent Gait: Covered distance of 300 feet without an assistive device with supervision only for directions. No loss of balance. No shortness of breath. Balance: Static Sitting: Normal Dynamic Sitting: Normal Static Standing: Normal Dynamic Standing: Good Special Tests: Mobility Limitations Standardized Measure [facility] AM-PAC 6 clicks Basic Mobility Inpatient Short Form: Raw Score: 24 CMS Score: 0% deficit 4-stage Balance Test: Feet together 10 seonds Semi-tandem 10 seconds Full tandem 10 seconds One legged stance 9 seconds Informed Consent/Education: Patient was instructed in purpose of PT consult. Assessment: Patient demonstrates independent ability for in-room ambulation. May walk in the hallway independently without an assistive device as tolerated. Patient is assessed as a 59773 low complexity based on the following: History: 39-year-old male with past medical history as indicated above Examination: As above Presentation: Stable Decision Makin low complexity Goals: N/A. PT evaluation only. Plan of Care/Treatment Plan: N/A. PT evaluation only. May walk independently in [facility] hallway without an assistive device as tolerated. DISCHARGE RECOMMENDATIONS: [X] Home with no services. [] Home with services [specify] [] Home with outpatient PT [] [] SNF for continued rehabilitation [] [] Jail Care [] [] SNF versus LTC based on ability to participate and progress [] TREATMENT CODE/TIME: 20021 x 18 minutes for 1 unit (16:32-16:50). Thank you for the opportunity to participate in the care of this patient. Sofia Randolph PT, DPT, CLT [facility] [place], [place]
[2024-08-29 19:37] LABS: Hepatitis C Ab w Rflx HCV PCR Negative (Negative)
[2024-08-29 19:54] VITALS: BP 99/60; PULSE 70; RESP 20; TEMP 36.9; O2SAT 98
[2024-08-29 23:49] VITALS: BP 120/77; PULSE 67; RESP 19; TEMP 36.2; O2SAT 98
[2024-08-30 03:08] VITALS: BP 124/83; PULSE 66; RESP 20; TEMP 36.8; O2SAT 100
[2024-08-30] MEDS: Metoprolol 12.5 MG TAB PO ×2 (03:13→11:01)
[2024-08-30] MEDS: Acetaminophen 500 MG TAB 1000 MG PO ×2 (03:13→11:01)
[2024-08-30 07:30] VITALS: BP 131/90; PULSE 68; RESP 18; TEMP 37.1; O2SAT 99
[2024-08-30] MEDS: levETIRAcetam 500 MG TAB 1000 MG PO (07:30)
[2024-08-30] MEDS: Cyanocobalamin 500 MCG TAB 1000 MCG PO (07:30)
[2024-08-30] MEDS: Cephalexin 500 MG CAP PO ×2 (07:30→12:38)
[2024-08-30] MEDS: Multivitamin TAB 1 TAB PO ×2 (07:30)
[2024-08-30] MEDS: Folic Acid 1 MG TAB PO (07:30)
[2024-08-30] MEDS: Normal Saline Flush 10 ML SYR IVP (07:30)
[2024-08-30] MEDS: Polyethylene Glycol 3350 17 GM PACKET PO (07:30)
[2024-08-30] MEDS: Thiamine 100 MG TAB PO (07:30)
[2024-08-30] MEDS: Docusate Sodium 100 MG CAP PO ×2 (07:30→12:38)
[2024-08-30 08:39] LABS: INR 1.4 (0.9-1.1); PTT Activated 27.2 sec (23.6-32.8); Prothrombin Time 13.8 sec (9.1-11.1)
[2024-08-30 08:42] LABS: ALT 32 U/L (16-63); AST 69 U/L (15-37); Alkaline Phosphatase 213 U/L (46-116); Anion Gap 10.3 mmol/L (3-11); BUN 11 mg/dL (7-18); Bilirubin, Total 1.41 mg/dL (0.2-1.0); CO2 23.7 mmol/L (21.0-32.0); CREATININE 0.7 mg/dL (0.70-1.30); Calcium 8.6 mg/dL (8.5-10.1); Chloride 102 mmol/L (98-107); Estimated GFR 121.71 (mL/min/1.73m2); Glucose 88 mg/dL (74-106); Magnesium 1.9 mg/dL (1.8-2.4); Potassium 4.4 mmol/L (3.5-5.1); Sodium 136 mmol/L (136-145); Total Protein 8.6 g/dL (6.4-8.2)
[2024-08-30 09:20] LABS: Abs Immature Grans 0.01 10^3/uL (0.0-0.06); Absolute Basophil Count 0.03 10^3/uL (0.0-0.2); Absolute Eosinophil Count 0.17 10^3/uL (0.0-0.7); Absolute Lymphocyte Count 0.78 10^3/uL (1.2-3.4); Absolute Monocyte Count 0.26 10^3/uL (0.1-0.8); Absolute Neutrophil Count 2.07 10^3/uL (1.2-6.7); Basophils % 0.9 %; Eosinophils % 5.1 %; HCT 29.2 % (40.0-50.0); HGB 8.4 g/dL (13.5-17.5); Immature Grans % 0.3 %; Lymphocytes % 23.5 %; MCH 20.3 pg (27.0-33.0); MCHC 28.8 % (32.0-36.0); MCV 71 fL (80-95); Monocytes % 7.8 %; Neutrophils % 62.4 %; RBC 4.14 10^6/uL (4.36-5.78); RDW 22.6 % (11.8-14.1); RDW-SD 55.4 fL; WBC 3.32 10^3/uL (4.4-10.8)
[2024-08-30 10:50] LABS: Platelet Count 62 10^3/uL (130-400)
[2024-08-30 10:59] VITALS: BP 135/84; PULSE 77; RESP 20; TEMP 36.9; O2SAT 100
[2024-08-30 11:27] LABS: Anisocytosis 2+; Hypochromasia 2+; Microcytosis 2+
[2024-08-30 11:28] LABS: Poikilocytes 1+
--- NOTE | 2024-08-30 12:20 | DSE_ITS ---
Date of service: 08/30/24 Time of Service: 12:20 DS: Diagnosis Discharge Diagnosis (1) Alcohol withdrawal: Status: Acute (2) Pancytopenia: Status: Acute (3) Seizure: Status: Acute (4) Abdominal pain: Status: Acute (5) Elevated INR (international normalized ratio): Status: Acute (6) Toe pain, left: Status: Acute Discharge Plan Disposition Patient Disposition: Home Condition: Improving Discharge Details Reason For Visit: Alcohol withdrawal Admit Date/Time: 08/26/24 04:45 Admit Provider: Jackson Vazquez Attending Provider: Jackson Vazquez Primary Care Provider: Rosa Alvares Hospital Course Hospital Course: This 34 years old male patient with a well-known past medical history of alcohol use disorder and alcohol withdrawal most recently at [facility] from 08/18/2024 to 08/20/2024 and immediately open discharge began to drink alcohol again presented to the ED at [facility] on 08/26/2024 for evaluation of alcoholic intoxication and wanting to go through withdrawal. On presentation to the ED patient mentioned that he started drinking right after discharge from the hospital on 08/20/2024 as he was experiencing difficulties to go to [facility], rehabilitation center. Patient voiced concern regarding the possibility of if he continued to drink and wishing to go through alcohol withdrawal. At the time the patient reported recent vomiting denied ongoing nausea, abdominal pain, diarrhea, headache, lightheadedness ,dizziness or chest pain. Workup in the emergency department was significant for EtOH level over 500, tachycardia, and worsening baseline and pancytopenia. Later in the ED the patient experience an elevated CIWA score and IV phenobarbital load was given. The hospitalist was consulted and the patient was admitted to the medical surgical floor with known alcohol use disorder requiring IV administration of phenobarbital for EtOH withdrawal. The stay the patient was treated with IV phenobarbital without which reaching the soft limit and symptom improvement were noticed. Tachycardia was treated with metoprolol. The patient will be discharge with low dose long acting m etoprolol also in the setting of portal hypertension history. Cytopenia and LFTs improved. The patient complained of abdominal pain with positive Martinez sign. Imaging was negative for cholecystitis or cholelithiasis but liver cirrhosis, left upper quadrant varices and splenomegaly were observed. The patient was started on proton pump inhibitors with improvement of his symptoms. Surgical consult at the time did not recommend any interventions as the patient displayed thrombocytopenia in the setting of his history of pancytopenia with previously banded esophageal varices. The patient was initially reluctant to meet with pitching coach. Patient agreed to be started on naltrexone to assist him in his recovery. This meeting happened today and the patient completed a phone call to [facility] which appeared to have a possible bed today. The patient is medically clear for discharge and will be discharge with recommendation to go to [facility]. The patient should follow up with his PCP within seven days of discharge with recommendations for liver function, coagulation studies and CBC monitoring . Discussed with Dr. Landry Home Meds and New Rx's Prescriptions: New docusate sodium [Colace] 100 mg Capsule 100 mg PO BID Qty: 60 0RF naltrexone 50 mg Tablet 50 mg PO DAILY Qty: 30 0RF folic acid 1 mg Tablet 1 mg PO DAILY Qty: 30 0RF metoprolol succinate 25 mg tablet extended release 24 hr 25 mg PO DAILY Qty: 30 0RF pantoprazole [Protonix] 40 mg tablet,delayed release (DR/EC) 40 mg PO DAILY Qty: 30 0RF Continued levetiracetam [Keppra] 1,000 mg tablet 1,000 mg PO BID thiamine HCl (vitamin B1) 100 mg tablet 100 mg PO DAILY cephalexin 500 mg Capsule 500 mg PO QID Qty: 16 0RF Rx Instructions: You received 4 days worth of treatment during your stay and no further treatment needed after 08/31/2024 Discontinued nadolol [Corgard] 20 mg tablet 20 mg PO DAILY sulfamethoxazole-trimethoprim 800-160 mg Tablet 1 tab PO BID Qty: 8 0RF Discharge Instructions Referrals: Rosa Alvares [Primary Care Provider] - (F/u within 7 days of discharge please) Activity:: Activity as Tolerated Equipment/Supplies:: No Equipment Needed Diet:: Regular no Alcohol DS: Summary Time Spent with Patient providing and/or coordinating discharge services: Greater than 30 minutes Status at Discharge Functional status at discharge: independent ambulation Overall status at discharge: patient is progressing back to baseline Mental Status: mental status grossly normal Speech and Movement: speech and movement normal Mood: congruent mood Affect: normal affect Quality:SDOH Health Related Social Needs: Health related social needs housing instability, house d, with risk of homelessness(Z59.811), material hardship(utilities)(Z59.87) Exam Narrative Exam Narrative: Constitutional The patient without acute distress Neuro:alert and oriented X3 . No neurological focal deficit Resp: Unlabored breathing, clear lung bilaterally Cardio: regular rhythm, S1, S2 GI: Abdomen is not distended, soft non-tender, bowel sounds are present Back/spine/Pelvis: Left back tenderness improving - no bruising , normal alignment Integumentary:no opened wounds or rash Extremities: strength 5/5 to bilateral lower and upper extremities Psych: RASS 0, congruent mood and normal to flat affect. Psych Mental Status: mental status grossly normal Speech and Movement: speech and movement normal Mood: congruent mood Affect: normal affect DS: Data Vitals/I&O Vitals and I&O: Vital Signs Temperature 36.9 C 08/30/24 10:59 Temperature Source Tympanic 08/30/24 10:59 Pulse 77 08/30/24 10:59 Pulse Rhythm Regular 08/26/24 06:05 Pulse 112 H 08/26/24 05:50 Respiratory Rate 20 08/30/24 10:59 Respiratory Effort Normal, Non-Labored 08/26/24 06:05 Respiratory Depth Normal 08/26/24 06:05 Respiratory Pattern Normal 08/26/24 06:05 Blood Pressure 135/84 08/30/24 10:59 Blood Pressure Mean 90 08/26/24 05:31 Blood Pressure Position Sitting 08/25/24 18:34 Pulse Oximetry 100 08/30/24 10:59 Oxygen Delivery Method Room Air 08/30/24 10:59 Oxygen Flow Rate 0 08/30/24 10:59 Pain Level 3 08/30/24 11:01 Comment Nurse notified. 08/29/24 19:54 Intake & Output 08/29/24 08/30/24 08/30/24 23:59 11:59 23:59 Intake Total 180 / 680 Output Total 575 / 1025 Balance -395 / -345 Intake: Oral 180 / 680 Output: Urine 575 / 1025 Other: Urine Color Pale Yellow Yellow Urine Appearance Clear Clear Urine Odor None Data Completed and Pending Labs on day of discharge: Labs from last 24 hours 08/30/24 08/29/24 06:30 07:55 WBC 3.32 L RBC 4.14 L Hgb 8.4 L Hct 29.2 L MCV 71 L MCH 20.3 L MCHC 28.8 L RDW 22.6 H Plt Count 62 L MPV Immature Gran % 0.3 Neutrophils % 62.4 Lymphocytes % 23.5 Monocytes % 7.8 Eosinophils % 5.1 Basophils % 0.9 Nucleated RBC % 0.0 Absolute Neutrophils 2.07 Absolute Lymphocytes 0.78 L Absolute Monocytes 0.26 Absolute Eosinophils 0.17 Absolute Basophils 0.03 RBC Morphology See Below Hypochromasia 2+ Poikilocytosis 1+ Anisocytosis 2+ Microcytosis 2+ PT 13.8 H INR 1.4 H APTT 27.2 Sodium 136 Potassium 4.4 Chloride 102 Carbon Dioxide 23.7 Anion Gap 10.3 BUN 11 Creatinine 0.7 Est GFR (CKD-EPI 2020) 121.71 Glucose 88 Calcium 8.6 Magnesium 1.9 Total Bilirubin 1.41 H AST 69 H ALT 32 Alkaline Phosphatase 213 H Total Protein 8.6 H Albumin 3.0 L Hepatitis C Antibody Negative PFSH All Active Problems (Updated 08/30/24 @ 12:25 by Oma Bonilla APRN) Elevated INR (international normalized ratio) (Acute) Chronic anemia (Acute) ETOH abuse (Chronic) Protein-calorie malnutrition, mild (Acute) Enlarged liver (Acute) Lumbar compression fracture (Acute) Splenomegaly (Acute) Alcoholic cirrhosis of liver without ascites (Acute) Portal hypertension with esophageal varices (Acute) Abdominal pain (Acute) Seizure (Acute) Toe pain, left (Acute) Pancytopenia (Acute) Alcohol withdrawal (Acute) Cellulitis of great toe of left foot (Acute) Thrombocytopenia (Chronic) Leukopenia (Acute) Alcohol intoxication (Acute) Social History Smoking/Tobacco Use Status: Never Smoking risk assessment performed?: Yes Alcohol Intake: current Alcohol Intake frequency: a few times a month Drug use: Occasionally Substance use type: does not use Housing: house Do you feel safe at home: Yes Do you feel safe in your relationship?: Yes Time Spent with Patient Time Spent with Patient: 70-84 minutes4 Time was spent: preparing to see the patient(eg.review tests), obtaining and/or reviewing separately otained hiistory, ordering medications,tests, procedures, referring, communicating with other health career technical counselor, indepentently interpreting results, counseling the patient and care coordination
[2024-08-30] MEDS: Naltrexone 50 MG TAB PO (12:37)
[2024-08-30] MEDS: Pantoprazole 40 MG VIAL IVP (12:38)
--- NOTE | 2024-08-30 14:47 | CMDISCH_ITS ---
Date of service: 08/30/24 Time of Service: 14:47 LACE Index Scoring Tool Questions: Length of Stay (in days): 4 - 6 Was the patient admitted via the E.D.?: Yes Comorbidities: Liver or Renal Disease E.D. Visits: 3 Answers: Total Score: 15 Risk of Readmission: High Risk Care Management Discharge Plan Reason for Hospitalization: alcohol intoxication/withdrawal Discharge Plan: Julio was visited by the Physicist Cryogenics, Nasima, from [facility]. Nasima helped Martin fill out on-line applications and phone calls to recovery centers. She also gave Julio her number, and let him know she is available to him at any time. Julio was accepted by [facility], they will be able to take him later today once they have a bed available. Julio was discharged home today, with his step Dad. Julio is waiting for the call from [facility] instructing him what time to be there. He left a following up and is anxious for the return call. Julio was discharged with orders for new medications to help him stay away from drinking. He will return to his step dad's house to pack. He is unsure if he will go to [facility] straight off, or wait for the call. He stated to that he would go in the middle of the night if he has to. He will either get a ride from his step dad, or call the medicaid number he was given by the track coach. SDOH Health Related Social Needs: Health related social needs housing instability, house d, with risk of homelessness(Z59.811), material hardship(utilities)(Z59.87)
== END 2024-08-30 14:19 | disposition home or self-care (01) | DRG 897 ==
LOC: ER 08-26 04:58 → MS 08-26 06:00
PROVIDERS: Family Medicine; Nurse Practitioner Acute Care; Nurse Practitioner Family; Surgery; Admitting Provider Family Medicine; Emergency Provider Emergency Medicine; PCP Nurse Practitioner Family; Visit Provider Family Medicine
DX: F10.139 Alcohol abuse with withdrawal, unspecified (principal); D61.818 Other pancytopenia; K76.6 Portal hypertension; E44.1 Mild protein-calorie malnutrition; I47.10 Supraventricular tachycardia, unspecified; I85.10 Secondary esophageal varices without bleeding; M79.675 Pain in left toe(s); K70.30 Alcoholic cirrhosis of liver without ascites; R16.1 Splenomegaly, not elsewhere classified; D69.6 Thrombocytopenia, unspecified; R79.1 Abnormal coagulation profile; D64.9 Anemia, unspecified; Y90.8 Blood alcohol level of 240 mg/100 ml or more; R56.9 Unspecified convulsions; L03.032 Cellulitis of left toe
CPT/HCPCS: 00123; 36415; 74177; 80048; 80053; 80076; 80307; 83690; 85027; 86803; 93005; 96365; 97161; 99285; 70450; 71046; 71260; 80320; 81003; 81015; 82140; 82270; 82607; 82728; 82746; 83735; 84484; 85025; 85045; 85610; 85730; 93010; 93306; 99223; 99233; 99239; 99291; J2405; J2470; J2560; J3411; J3475; J3490